=== PATIENT | female | born 1940 | race Caucasian/White ===

== ENCOUNTER 2017-01-07 16:19 | Emergency (ER) | payer MEDICARE ==
[2017-01-07 16:56] VITALS: O2SAT 97
[2017-01-07] MEDS ORDERED: PROVENTIL 2.5 MG/3 ML NEB IH ONE ×2 (16:56→17:07)
--- NOTE | 2017-01-07 17:02 | ERPHSYRPT ---
- History of Present Illness Time Seen by Provider: 01/07/17 16:21 Source: patient Patient Subjective Stated Complaint: increased sob Triage Nursing Assessment: states she went to have 2 biopsies yesterday on a rectal mass in [place]. increased sob since last night. pt states she is anemic. skin warm and dry. home o2. states is passing octavio red blood with clots. denies cough or nasal drainage. 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 She has been off blood thinners for 6 months due to bleeding. She went to [facility] yesterday and had a rectal biopsy. 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 She had prior complete hysterectomy. No chest pain. No fever or chills. No abd pain. Allergies/Adverse Reactions: iron Adverse Reaction (Verified 01/07/17 16:28) Home Medications: Albuterol/Ipratropium 3ml Neb* [DUONEB 0.5-3 MG/3 ml Neb] 1 neb IH Q4-6HPRN PRN 08/18/12 [History] Atorvastatin Calcium [Lipitor] 20 mg PO HS 02/28/13 [History] Furosemide 40 mg [Lasix 40 MG] 40 mg PO DAILY 02/28/13 [History] Carvedilol 6.25 mg [Coreg 6.25 MG] 6.25 mg PO BID 01/07/17 [History] Fluticasone/Vilanterol [Breo Ellipta 100-25 Mcg INH] 1 each IH DAILY 01/07/17 [ History] Ipratropium/Albuterol Sulfate [Combivent Inhaler] 14.7 gm IH DAILY 01/07/17 [ History] Omeprazole 40 mg PO DAILY 01/07/17 [History] Potassium Chloride 10 Meq Tab* [Klor Con 10 MEQ] 10 meq PO HS 01/07/17 [ History] Hx Tetanus, Diphtheria Vaccination/Date Given: Yes Hx Influenza Vaccination/Date Given: Yes Hx Pneumococcal Vaccination/Date Given: Yes (2015) Immunizations Up to Date: Yes - Review of Systems Constitutional: Fatigue, Malaise, Weakness, No Fever, No Chills Eyes: No Symptoms Ears, Nose, & Throat: No Symptoms Respiratory: Dyspnea, No Cough Cardiac: No Chest Pain Abdominal/Gastrointestinal: No Abdominal Pain, No Nausea, No Vomiting Musculoskeletal: No Back Pain Skin: No Rash All Other Systems: Reviewed and Negative - Past Medical History Pertinent Past Medical History: Yes Neurological History: No Pertinent History ENT History: Cataracts Cardiac History: Arrhythmia, Hypertension, Myocardial Infarction (IA), Other Respiratory History: Emphysema Endocrine Medical History: No Pertinent History Musculoskeletal History: No Pertinent History GI Medical History: No Pertinent History History: No Pertinent History Psycho-Social History: No Pertinent History Female Reproductive Disorders: Endometriosis Other Medical History: APICAL THROMBUS, 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 PACEMAKER/DEFIBRILLATOR VIA DR NAVARRO. 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 IN JUN 2012 WAS ON THE VENTILATOR FOR 11 DAYS. - Past Surgical History Past Surgical History: Yes Neuro Surgical History: No Pertinent History Cardiac: No Pertinent History, Internal Defibrillator, Pacemaker Respiratory: No Pertinent History Gastrointestinal: No Pertinent History Genitourinary: No Pertinent History Musculoskeletal: No Pertinent History Female Surgical History: Hysterectomy Other Surgical History: cataract surgery - Social History Smoking Status: Former smoker How long have you smoked: 52 years Exposure to second hand smoke: No Drug Use: none Patient Lives Alone: No - Female History Hx Now: No - Nursing Vital Signs Nursing Vital Signs: Initial Vital Signs Temperature 97.6 F Temperature Source Oral Pulse Rate 70 Respiratory Rate 16 Blood Pressure [Right Arm] 136/76 Pain Intensity 0 - Physical Exam General Appearance: other (awake and alert) Eye Exam: PERRL/EOMI Ears, Nose, Throat Exam: moist mucous membranes Neck Exam: supple Respiratory Exam: diminished breath sounds Cardiovascular Exam: regular rate/rhythm Gastrointestinal/Abdomen Exam: soft, No tenderness, No distention Back Exam: normal inspection Extremity Exam: normal inspection, No calf tenderness, No pedal edema Neurologic Exam: alert, oriented x 3, cooperative, sensation nml, No motor deficits Skin Exam: warm, dry, No rash SpO2 Interpretation: normal SpO2: 97 Oxygen Delivery: Nasal Cannula Comments: 01/07/17 17:01 rectum has no active bleeding. There is clot in vagina and this appears to be vaginal bleeding. She reports biopsy yesterday. Work up is pending. - Course Nursing assessment & vital signs reviewed: Yes EKG Interpreted by Me: RATE (70 pacemaker rhythm) - Radiology Exams cxr X-ray Interpretation: Reviewed by me (mild congestion, no consolidation, AICD) Ordered Tests: Active Orders 24 hr Category Date Time Status EKG-ER Only STAT Care 01/07/17 16:55 Active Harrell [Catheter-[place] Harrell] STAT Care 01/07/17 16:57 Active IV Insertion STAT Care 01/07/17 16:55 Active Oxygen-ED Only NASAL CANNULA 2 lpm Care 01/07/17 16:56 Active CHEST 1 VIEW (PORTABLE) Stat Exams 01/07/17 16:55 Taken CBC W DIFF Stat Lab 01/07/17 16:35 Completed CMP Stat Lab 01/07/17 16:35 Completed PROTIME WITH INR Stat Lab 01/07/17 16:35 Completed PTT Stat Lab 01/07/17 16:35 Completed UA W/RFX UR CULTURE Stat Lab 01/07/17 16:35 Completed Respiratory Nebulizer STAT RT 01/07/17 16:56 Active Medication Summary Discontinued Medications Generic Name Dose Route Start Last Admin Trade Name Freq PRN Reason Stop Dose Admin Albuterol Sulfate 2.5 mg 01/07/17 16:56 01/07/17 17:10 Proventil 2.5 Mg/3 Ml Neb IH 01/07/17 16:57 2.5 mg STAT ONE Administration Albuterol Sulfate Confirm 01/07/17 17:07 Proventil 2.5 Mg/3 Ml Neb Administered 01/07/17 17:08 Dose 2.5 mg IH .STK-MED ONE Lab/Rad Data: Laboratory Result Diagrams 01/07/17 16:35 01/07/17 16:35 Laboratory Results 01/07/17 01/07/17 01/07/17 Range/Units 16:35 16:35 16:35 WBC 3.4 L (4.0-10.5) K/mm3 RBC 3.45 L (4.1-5.4) M/mm3 Hgb 9.5 L (12.0-16.0) gm/dl Hct 32.5 L (35-47) % MCV 94.2 (78-100) fl MCH 27.5 (26-32) pg MCHC 29.2 L (32-36) g/dl RDW 15.8 H (11.5-14.0) % Plt Count 195 (150-450) K/mm3 MPV 10.5 H (6-9.5) fl Gran % 73.4 H (36.0-66.0) % Lymphocytes % 18.1 L (24.0-44.0) % Monocytes % 5.8 (0.0-12.0) % Eosinophils % 1.8 (0.00-5.0) % Basophils % 0.9 (0.0-0.4) % Basophils # 0.03 (0-0.4) INR 0.99 (0.8-3.0) APTT 29.7 (25.3-37.0) SECONDS Sodium 139 (136-145) mEq/L Potassium 3.6 (3.5-5.1) mEq/L Chloride 100 (98-107) mEq/L Carbon Dioxide 35.0 H (21-32) mEq/L Anion Gap 7.6 (5-15) MEQ/L BUN 11 (9-20) mg/dL Creatinine 0.78 (0.55-1.30) mg/dl Estimated GFR > 60 ML/MIN Glucose 122 H (70-110) MG/DL Calcium 9.0 (8.5-10.1) mg/dL Total Bilirubin 0.20 (0.2-1.0) mg/dL AST 19 (15-37) U/L ALT 28 (12-78) U/L Alkaline Phosphatase 94 (46-116) U/L Serum Total Protein 7.6 (6.4-8.2) gm/dL Albumin 3.3 L (3.4-5.0) g/dL Ur Collection Type Urine Color (YELLOW) Urine Appearance (CLEAR) Urine pH (5-6) Ur Specific [place] (1.005-1.025) Urine Protein (Negative) Urine Glucose (UA) (NEGATIVE) mg/dL Urine Ketones (NEGATIVE) Urine Nitrite (NEGATIVE) Urine Bilirubin (NEGATIVE) Urine Urobilinogen (0-1) mg/dL Urine WBC (Auto) (NEGATIVE) Urine RBC (Auto) (0-5) Misael/ul Specimen Received 01/07/17 Range/Units 16:35 WBC (4.0-10.5) K/mm3 RBC (4.1-5.4) M/mm3 Hgb (12.0-16.0) gm/dl Hct (35-47) % MCV (78-100) fl MCH (26-32) pg MCHC (32-36) g/dl RDW (11.5-14.0) % Plt Count (150-450) K/mm3 MPV (6-9.5) fl Gran % (36.0-66.0) % Lymphocytes % (24.0-44.0) % Monocytes % (0.0-12.0) % Eosinophils % (0.00-5.0) % Basophils % (0.0-0.4) % Basophils # (0-0.4) INR (0.8-3.0) APTT (25.3-37.0) SECONDS Sodium (136-145) mEq/L Potassium (3.5-5.1) mEq/L Chloride (98-107) mEq/L Carbon Dioxide (21-32) mEq/L Anion Gap (5-15) MEQ/L BUN (9-20) mg/dL Creatinine (0.55-1.30) mg/dl Estimated GFR ML/MIN Glucose (70-110) MG/DL Calcium (8.5-10.1) mg/dL Total Bilirubin (0.2-1.0) mg/dL AST (15-37) U/L ALT (12-78) U/L Alkaline Phosphatase (46-116) U/L Serum Total Protein (6.4-8.2) gm/dL Albumin (3.4-5.0) g/dL Ur Collection Type CATH Urine Color YELLOW (YELLOW) Urine Appearance CLEAR (CLEAR) Urine pH 5.0 (5-6) Ur Specific [place] 1.015 (1.005-1.025) Urine Protein NEGATIVE (Negative) Urine Glucose (UA) NEGATIVE (NEGATIVE) mg/dL Urine Ketones NEGATIVE (NEGATIVE) Urine Nitrite NEGATIVE (NEGATIVE) Urine Bilirubin NEGATIVE (NEGATIVE) Urine Urobilinogen 0.2 (0-1) mg/dL Urine WBC (Auto) NEGATIVE (NEGATIVE) Urine RBC (Auto) NEGATIVE (0-5) Misael/ul Specimen Received 01/07/17 1635 - Progress Progress Note: 01/07/17 18:30 She felt better and wants to go home. Vitals stable here. No sign of infection. She has no chest pain. Hg a little low but stable. Advised she take extra water pill but she does not want to. Advised she see Dr Ruff tomorrow if needed and next week for sure. She plans to care for grandchildren tomorrow. Counseled pt/family regarding: lab results, diagnosis, need for follow-up, rad results - Departure Time of Disposition: 18:31 Departure Disposition: Home Clinical Impression: Vaginal bleeding, Anemia, COPD (chronic obstructive pulmonary disease) Condition: Stable Critical Care Time: No Referrals: OTF RUFF MD [Primary Care Provider] - Instructions: Chronic Obstructive Pulmonary Disease, Vaginal Bleeding Additional Instructions: Rest at home. Call to see Dr Ruff tomorrow if any problems or next week if stable. Take an extra water pill tonite. Return for problems or concerns.
[2017-01-07 17:05] LABS: BASOPHIL % 0.9 % (0.0-0.4); Eosinophil % 1.8 % (0.00-5.0); Granulocytes % 73.4 % (36.0-66.0); Lymphocytes % 18.1 % (24.0-44.0); Mean Cell Volume 94.2 fl (78-100); Mean Corpuscular Hemoglobin 27.5 pg (26-32); Mean Platelet Volume 10.5 fl (6-9.5); Monocytes % 5.8 % (0.0-12.0); Platelet Count 195 K/mm3 (150-450); Red Blood Count 3.45 M/mm3 (4.1-5.4); Red Cell Distribution Width 15.8 % (11.5-14.0); White Blood Count 3.4 K/mm3 (4.0-10.5)
[2017-01-07 17:06] LABS: ADD URINE CULTURE? NO (NO); COMPLETE URINE MICROSCOPIC? NO; Collection Type CATH
[2017-01-07 17:23] LABS: INR 0.99 (0.8-3.0); PROTIME 11.1 SECONDS (9.95-12.35)
[2017-01-07 17:26] LABS: PTT 29.7 SECONDS (25.3-37.0)
[2017-01-07 17:33] LABS: ALBUMIN 3.3 g/dL (3.4-5.0); ALKALINE PHOSPHATASE 94 U/L (46-116); ANION GAP 7.6 MEQ/L (5-15); BLOOD UREA NITROGEN 11 mg/dL (9-20); CHLORIDE 100 mEq/L (98-107); Glucose 122 MG/DL (70-110); Potassium 3.6 mEq/L (3.5-5.1); SGOT/AST 19 U/L (15-37); SGPT/ALT 28 U/L (12-78); SODIUM 139 mEq/L (136-145); Total Protein 7.6 gm/dL (6.4-8.2)
[2017-01-07 18:42] VITALS: BP 122/65; PULSE 88
--- NOTE | 2017-01-08 09:01 | XRAY ---
Indication: Short of breath. COPD. Comparison: March 13, 2016. Portable chest less inflated today again with chronic lung markings. No focal infiltrate, consolidation, or large effusion. Heart is not enlarged for AP portable technique. Stable left-sided AICD. Bony thorax intact again with osteopenia, degenerative changes, and calcified left axillary nodes. Impression: Nonacute chest with chronic features.
== END 2017-01-07 18:43 | disposition home or self-care (01) ==
LOC: ED 16:19
DX: N93.9 Abnormal uterine and vaginal bleeding, unspecified (principal); D64.9 Anemia, unspecified; J44.9 Chronic obstructive pulmonary disease, unspecified
CPT/HCPCS: 36000; 36415; 51702; 71010; 80053; 81002; 85025; 85610; 85730; 93005; 94640; 99283; A9270-GY

== ENCOUNTER 2018-08-02 11:16 | Inpatient (IN) | payer MEDICARE ==
--- NOTE | 2018-08-02 11:52 | ERPHSYRPT ---
- History of Present Illness Time Seen by Provider: 08/02/18 11:20 Patient Subjective Stated Complaint: EMS states "Her son came to wish her a happy birthday and found her unresponsive in her chair and called us. She has CHF, COPD, emphysema, her initial O2 sat was 75, she did not have her oxygen on in her chair. we put her on CPAP, gave her a duo neb tx, continuous neb tx, and 125 mg solumedrol en route. pt started to become more responsive." Triage Nursing Assessment: Pt arrived [facility] on CPAP, pt responds to voice, will answer a few questions, tachpneic, lung sounds has expiratory wheezes in all lung bowman, inspiratory wheezes left lower. pt son states sometime between 0400 and 1000 am her status changed. Physician History: 78 y/o white female presents via EMS. pt found by son at approx 10am unresponsive sitting up in chair without her home oxygen on via [place]. pt last seen normal at 0400 this am. pt was tachypneic with shallow breathing on his arrival. pt has h/o copd, chf, and emphysema. EMS arrival oxygen sat 75%. on cpap pts neuro status improved marginally. will shake head and nod to answer questions. Timing/Duration: today Severity: moderate Character of Deficits: unable to speak, other (minimally responsive) Baseline/Normal Cognition: alert oriented x 3 Current Cognition: poor alertness Associated Symptoms: other (altered mental status), No loss of consciousness, No nausea, No vomiting, No weakness, No insomnia, No slurred speech Allergies/Adverse Reactions: iron Adverse Reaction (Verified 01/07/17 16:28) Home Medications: Albuterol/Ipratropium 3ml Neb* [DUONEB 0.5-3 MG/3 ml Neb] 1 neb IH Q4-6HPRN PRN 08/18/12 [History] Atorvastatin Calcium [Lipitor] 20 mg PO HS 02/28/13 [History] Furosemide 40 mg [Lasix 40 MG] 40 mg PO BID 02/28/13 [History] Carvedilol 6.25 mg [Coreg 6.25 MG] 12.5 mg PO BID 01/07/17 [History] Fluticasone/Vilanterol [Breo Ellipta 100-25 Mcg INH] 1 each IH DAILY 01/07/17 [ History] Ipratropium/Albuterol Sulfate [Combivent Inhaler] 14.7 gm IH DAILY 01/07/17 [ History] Omeprazole 40 mg PO DAILY 01/07/17 [History] Potassium Chloride 10 Meq Tab* [Klor Con 10 MEQ] 10 meq PO BID 01/07/17 [ History] Hx Tetanus, Diphtheria Vaccination/Date Given: No Hx Influenza Vaccination/Date Given: Yes Hx Pneumococcal Vaccination/Date Given: Yes Immunizations Up to Date: Yes - Review of Systems Constitutional: No Symptoms Eyes: No Symptoms Ears, Nose, & Throat: No Symptoms Respiratory: Dyspnea, Wheezing, No Stridor Cardiac: No Chest Pain, No Palpitations, No Syncope Abdominal/Gastrointestinal: No Symptoms, No Abdominal Pain, No Nausea, No Vomiting, No Diarrhea Genitourinary Symptoms: No Symptoms, No Dysuria, No Frequency, No Hematuria Musculoskeletal: No Symptoms Skin: No Symptoms Neurological: Other (altered mental status) Psychological: No Symptoms Endocrine: No Symptoms Hematologic/Lymphatic: No Symptoms Immunological/Allergic: No Symptoms All Other Systems: Reviewed and Negative - Past Medical History Pertinent Past Medical History: Yes Neurological History: No Pertinent History ENT History: Cataracts Cardiac History: Arrhythmia, Hypertension, Myocardial Infarction (DE), Other Respiratory History: Emphysema Endocrine Medical History: No Pertinent History Musculoskeletal History: No Pertinent History GI Medical History: No Pertinent History History: No Pertinent History Psycho-Social History: No Pertinent History Female Reproductive Disorders: Endometriosis Other Medical History: APICAL THROMBUS, 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 PACEMAKER/DEFIBRILLATOR VIA DR NAVARRO. 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 IN JUN 2012 WAS ON THE VENTILATOR FOR 11 DAYS. - Past Surgical History Past Surgical History: Yes Neuro Surgical History: No Pertinent History Cardiac: No Pertinent History, Internal Defibrillator, Pacemaker Respiratory: No Pertinent History Gastrointestinal: No Pertinent History Genitourinary: No Pertinent History Musculoskeletal: No Pertinent History Female Surgical History: Hysterectomy Other Surgical History: cataract surgery - Social History Smoking Status: Current every day smoker How long have you smoked: years Exposure to second hand smoke: Yes Drug Use: none Patient Lives Alone: No - Nursing Vital Signs Nursing Vital Signs: Initial Vital Signs Pulse Rate 85 08/02/18 11:18 Respiratory Rate 34 H 08/02/18 11:18 Blood Pressure 128/59 08/02/18 11:18 O2 Sat by Pulse Oximetry 100 08/02/18 11:18 Pain Scale Pain Intensity 0 - [place] Coma Scale Best Eye Response (Timur): (3) open to voice Best Verbal Response (Timur): (1) no verbal response Best Motor Response ([place]): (6) obeys commands [place] Total: 10 - Physical Exam General Appearance: lethargy Eye Exam: bilateral eye: normal inspection, PERRL, EOMI Ears, Nose, Throat Exam: normal ENT inspection, moist mucous membranes Neck Exam: normal inspection, non-tender, supple, full range of motion Respiratory: diminished breath sounds, wheezing, No accessory muscle use, No crackles/rales, No rhonchi, No stridor Cardiovascular: irregular, other (ventricular pacemaker) Gastrointestinal: soft, normal bowel sounds, No tenderness, No guarding Pelvic Exam: not done Rectal Exam: not done Back Exam: normal inspection, normal range of motion, No CVA tenderness, No vertebral tenderness Extremity Exam: normal inspection, normal range of motion, pelvis stable Mental Status: lethargy aprn Exam: normal hearing, PERRL, tongue midline, No facial asymmetry, No hearing deficit (R) Skin Exam: normal color, warm, dry SpO2 Interpretation: normal SpO2: 100 Oxygen Delivery: BiPap/CPAP - Course Nursing assessment & vital signs reviewed: Yes EKG Interpreted by Me: RATE (80), Other (ventricular paced rhythm) Ordered Tests: Active Orders 24 hr Category Date Time Status Sheet Metal Supervisor STAT Care 08/02/18 11:31 Active Cath for Specimen-Straight STAT Care 08/02/18 11:31 Active Catheter-Osceola Hrarell STAT Care 08/02/18 11:29 Active EKG-ER Only STAT Care 08/02/18 11:29 Active IV Insertion STAT Care 08/02/18 11:29 Active Pulse Oximetry (ED) STAT Care 08/02/18 11:29 Active CHEST 1 VIEW (PORTABLE) Stat Exams 08/02/18 11:30 Completed HEAD WITHOUT CONTRAST [CT] Stat Exams 08/02/18 11:33 Completed ARTERIAL BLOOD GASES Urgent Lab 08/02/18 11:26 Completed BLOOD CULTURE Stat Lab 08/02/18 12:50 Received BNP [NT PRO BNP] Stat Lab 08/02/18 11:51 Completed CBC W DIFF Stat Lab 08/02/18 11:51 Completed CMP Stat Lab 08/02/18 11:51 Completed CULTURE,URINE Stat Lab 08/02/18 11:51 Received Lactic Acid Stat Lab 08/02/18 11:26 Completed Manual Differential NC Stat Lab 08/02/18 11:51 Completed PROTIME WITH INR Stat Lab 08/02/18 11:51 Completed TROPONIN Q3H Lab 08/02/18 11:51 Completed TROPONIN Q3H Lab 08/02/18 14:45 Ordered TROPONIN Q3H Lab 08/02/18 17:45 Ordered TROPONIN Q3H Lab 08/02/18 20:45 Ordered TROPONIN Q3H Lab 08/02/18 23:45 Ordered UA W/RFX UR CULTURE Stat Lab 08/02/18 11:51 Completed BiPap/CPAP STAT RT 08/02/18 11:32 Active Transfer Order Routine Transfer 08/02/18 Ordered Medication Summary Discontinued Medications Generic Name Dose Route Start Last Admin Trade Name Freq PRN Reason Stop Dose Admin Acetaminophen 650 mg 08/02/18 12:13 08/02/18 12:18 Feverall 650 Mg AK 08/02/18 12:14 650 mg STAT ONE Administration Acetaminophen Confirm 08/02/18 12:17 Feverall 650 Mg Administered 08/02/18 12:18 Dose 650 mg .ROUTE .STAnalytics Quotient-MED ONE Lab/Rad Data: Laboratory Result Diagrams 08/02/18 11:51 08/02/18 11:51 Laboratory Results 08/02/18 08/02/18 08/02/18 Range/Units 11:51 11:51 11:51 WBC (4.0-10.5) K/mm3 RBC (4.1-5.4) M/mm3 Hgb (12.0-16.0) gm/dl Hct (35-47) % MCV (78-100) fl MCH (26-32) pg MCHC (32-36) g/dl RDW (11.5-14.0) % Plt Count (150-450) K/mm3 MPV (6-9.5) fl Segmented Neutrophils (36.0-66.0) % Band Neutrophils (0.0-2.0) % Lymphocytes (Manual) (24-44) % Monocytes (Manual) (0.0-12.0) % Hypochromia Platelet Estimate (NORMAL) RBC Morphology Anisocytosis PT (9.95-12.35) SECONDS INR (0.8-3.0) Puncture Site pCO2 (35-45) mmHg pO2 (75-100) mmHg Base Excess (-2.0-2.0) O2 Saturation (94-100) g/dF ABG pH (7.35-7.45) ABG HCO3 (22-28) ABG O2 Sat (Measured) (95-100) % Riccardo Test A-a Gradient a/A Ratio Hemoglobin Carboxyhemoglobin (0.0-6.9) % THgb Methemoglobin (1.4-1.5) % Potassium (3.5-5.1) Temperature C POC O2 Flow Rate % Inspiratory BiPAP Expiratory BiPAP Sodium (137-145) mmol/L Chloride (98-107) mmol/L Carbon Dioxide (22-30) mmol/L Anion Gap (5-15) MEQ/L BUN (7-17) mg/dL Creatinine (0.52-1.04) mg/dL Estimated GFR ML/MIN Glucose (74-106) mg/dL Lactic Acid (0.4-2.0) Calcium (8.4-10.2) mg/dL Total Bilirubin (0.2-1.3) mg/dL AST (14-36) U/L ALT (0-35) U/L Alkaline Phosphatase (38-126) U/L Troponin I 0.017 (0.000-0.034) ng/mL NT-Pro-B Natriuret Pep 2360 H (0-1800) pg/mL Serum Total Protein (6.3-8.2) g/dL Albumin (3.5-5.0) g/dL Urine Color HARLEY (YELLOW) Urine Appearance CLOUDY (CLEAR) Urine pH 5.0 (5-6) Ur Specific Jasper 1.020 (1.005-1.025) Urine Protein 100 (Negative) Urine Ketones NEGATIVE (NEGATIVE) Urine Blood NEGATIVE (0-5) Misael/ul Urine Nitrite NEGATIVE (NEGATIVE) Urine Bilirubin NEGATIVE (NEGATIVE) Urine Urobilinogen 4 (0-1) mg/dL Ur Leukocyte Esterase NEGATIVE (NEGATIVE) Urine WBC (Auto) 6-10 (0-5) /HPF Urine RBC (Auto) 0-2 (0-2) /HPF U Hyaline Cast (Auto) 26-50 (0-2) /LPF U Epithel Cells (Auto) RARE (FEW) /HPF Urine Bacteria (Auto) MODERATE (NEGATIVE) /HPF Urine Mucus (Auto) MANY (NEGATIVE) /HPF Urine Culture Reflexed YES (NO) Urine Glucose NEGATIVE (NEGATIVE) mg/dL 08/02/18 08/02/18 08/02/18 Range/Units 11:51 11:51 11:51 WBC 3.0 L (4.0-10.5) K/mm3 RBC 2.54 L (4.1-5.4) M/mm3 Hgb 7.4 L (12.0-16.0) gm/dl Hct 24.9 L (35-47) % MCV 98.0 (78-100) fl MCH 29.1 (26-32) pg MCHC 29.7 L (32-36) g/dl RDW 16.4 H (11.5-14.0) % Plt Count 81 L (150-450) K/mm3 MPV 12.4 H (6-9.5) fl Segmented Neutrophils 42 (36.0-66.0) % Band Neutrophils 4 H (0.0-2.0) % Lymphocytes (Manual) 53 H (24-44) % Monocytes (Manual) 1 (0.0-12.0) % Hypochromia 2+ Platelet Estimate DECREASED (NORMAL) RBC Morphology ABNORMAL Anisocytosis 2+ PT 15.4 H (9.95-12.35) SECONDS INR 1.32 (0.8-3.0) Puncture Site pCO2 (35-45) mmHg pO2 (75-100) mmHg Base Excess (-2.0-2.0) O2 Saturation (94-100) g/dF ABG pH (7.35-7.45) ABG HCO3 (22-28) ABG O2 Sat (Measured) (95-100) % Riccardo Test A-a Gradient a/A Ratio Hemoglobin Carboxyhemoglobin (0.0-6.9) % THgb Methemoglobin (1.4-1.5) % Potassium 4.4 (3.5-5.1) Temperature C POC O2 Flow Rate % Inspiratory BiPAP Expiratory BiPAP Sodium 133 L (137-145) mmol/L Chloride 90 L (98-107) mmol/L Carbon Dioxide 33 H (22-30) mmol/L Anion Gap 13.8 (5-15) MEQ/L BUN 20 H (7-17) mg/dL Creatinine 1.01 (0.52-1.04) mg/dL Estimated GFR 56.6 ML/MIN Glucose 124 H (74-106) mg/dL Lactic Acid (0.4-2.0) Calcium 8.8 (8.4-10.2) mg/dL Total Bilirubin 1.20 (0.2-1.3) mg/dL AST 113 H (14-36) U/L ALT 53 H (0-35) U/L Alkaline Phosphatase 121 (38-126) U/L Troponin I (0.000-0.034) ng/mL NT-Pro-B Natriuret Pep (0-1800) pg/mL Serum Total Protein 6.7 (6.3-8.2) g/dL Albumin 3.6 (3.5-5.0) g/dL Urine Color (YELLOW) Urine Appearance (CLEAR) Urine pH (5-6) Ur Specific Jasper (1.005-1.025) Urine Protein (Negative) Urine Ketones (NEGATIVE) Urine Blood (0-5) Misael/ul Urine Nitrite (NEGATIVE) Urine Bilirubin (NEGATIVE) Urine Urobilinogen (0-1) mg/dL Ur Leukocyte Esterase (NEGATIVE) Urine WBC (Auto) (0-5) /HPF Urine RBC (Auto) (0-2) /HPF U Hyaline Cast (Auto) (0-2) /LPF U Epithel Cells (Auto) (FEW) /HPF Urine Bacteria (Auto) (NEGATIVE) /HPF Urine Mucus (Auto) (NEGATIVE) /HPF Urine Culture Reflexed (NO) Urine Glucose (NEGATIVE) mg/dL 18 08/02/18 Range/Units 11:26 11:26 WBC (4.0-10.5) K/mm3 RBC (4.1-5.4) M/mm3 Hgb (12.0-16.0) gm/dl Hct (35-47) % MCV (78-100) fl MCH (26-32) pg MCHC (32-36) g/dl RDW (11.5-14.0) % Plt Count (150-450) K/mm3 MPV (6-9.5) fl Segmented Neutrophils (36.0-66.0) % Band Neutrophils (0.0-2.0) % Lymphocytes (Manual) (24-44) % Monocytes (Manual) (0.0-12.0) % Hypochromia Platelet Estimate (NORMAL) RBC Morphology Anisocytosis PT (9.95-12.35) SECONDS INR (0.8-3.0) Puncture Site LEFT RADIAL pCO2 43 (35-45) mmHg pO2 415 H* (75-100) mmHg Base Excess 9.4 H (-2.0-2.0) O2 Saturation 96.1 (94-100) g/dF ABG pH 7.50 H (7.35-7.45) ABG HCO3 33.5 H* (22-28) ABG O2 Sat (Measured) 99.2 (95-100) % Riccardo Test YES A-a Gradient 244 a/A Ratio 0.63 Hemoglobin 8.1 Carboxyhemoglobin 1.8 (0.0-6.9) % THgb Methemoglobin 1.3 L (1.4-1.5) % Potassium 4.4 (3.5-5.1) Temperature 37.0 C POC O2 Flow Rate 100 % Inspiratory BiPAP 16 Expiratory BiPAP 8 Sodium (137-145) mmol/L Chloride (98-107) mmol/L Carbon Dioxide (22-30) mmol/L Anion Gap (5-15) MEQ/L BUN (7-17) mg/dL Creatinine (0.52-1.04) mg/dL Estimated GFR ML/MIN Glucose (74-106) mg/dL Lactic Acid 0.7 (0.4-2.0) Calcium (8.4-10.2) mg/dL Total Bilirubin (0.2-1.3) mg/dL AST (14-36) U/L ALT (0-35) U/L Alkaline Phosphatase (38-126) U/L Troponin I (0.000-0.034) ng/mL NT-Pro-B Natriuret Pep (0-1800) pg/mL Serum Total Protein (6.3-8.2) g/dL Albumin (3.5-5.0) g/dL Urine Color (YELLOW) Urine Appearance (CLEAR) Urine pH (5-6) Ur Specific Jasper (1.005-1.025) Urine Protein (Negative) Urine Ketones (NEGATIVE) Urine Blood (0-5) Misael/ul Urine Nitrite (NEGATIVE) Urine Bilirubin (NEGATIVE) Urine Urobilinogen (0-1) mg/dL Ur Leukocyte Esterase (NEGATIVE) Urine WBC (Auto) (0-5) /HPF Urine RBC (Auto) (0-2) /HPF U Hyaline Cast (Auto) (0-2) /LPF U Epithel Cells (Auto) (FEW) /HPF Urine Bacteria (Auto) (NEGATIVE) /HPF Urine Mucus (Auto) (NEGATIVE) /HPF Urine Culture Reflexed (NO) Urine Glucose (NEGATIVE) mg/dL - Progress Progress: improved, re-examined Progress Note: 08/02/18 13:57 pt spontaneously opens eyes. following basic commands. spoke with dr. manning who is covering for . i reviewed pt hx, condition, labs, ekg and xray results with him. he accepts pt for admission. he agrees with transfusion of prbc and 20mg iv. lasix between and after units transfused. will wait for iv antibx pending cultures. Discussed with : Mc Counseled pt/family regarding: lab results, diagnosis, rad results - Departure Time of Disposition: 14:02 Departure Disposition: In-patient Admission Clinical Impression: Altered mental status, Pancytopenia, CHF (congestive heart failure), Respiratory distress Condition: Fair Critical Care Time: Yes Critical Care Time(excluding separately billable procedures): 30-74 minutes Referrals: OTF SOLIZ MD [Primary Care Provider] - Instructions: Heart Failure
[2018-08-02 11:56] LABS: Hematocrit 24.9 % (35-47); Hemoglobin 7.4 gm/dl (12.0-16.0); Mean Corpuscular Hemoglobin 29.1 pg (26-32); Mean Corpuscular Hgb Concent. 29.7 g/dl (32-36); Mean Platelet Volume 12.4 fl (6-9.5); Platelet Count 81 K/mm3 (150-450); Red Blood Count 2.54 M/mm3 (4.1-5.4); Red Cell Distribution Width 16.4 % (11.5-14.0)
[2018-08-02 11:59] LABS: Appearance CLOUDY (CLEAR); Bilirubin NEGATIVE (NEGATIVE); Blood NEGATIVE Ery/ul (0-5); Glucose NEGATIVE (NEGATIVE); Ketones NEGATIVE (NEGATIVE); Leukocyte Esterase NEGATIVE (NEGATIVE); Nitrite NEGATIVE (NEGATIVE); Protein,Urine Dip 100 (Negative); Urobilinogen 4 mg/dL (0-1)
[2018-08-02 12:04] LABS: A-aADO2 244; ABG HEMOGLOBIN 8.1; ABG POTASSIUM 4.4 (3.5-5.1); ARTERIAL BLD GAS O2 SATURATION 99.2 % (95-100); ARTERIAL BLOOD GAS BASE EXCESS 9.4 (-2.0-2.0); ARTERIAL BLOOD GAS FIO2 100 %; ARTERIAL BLOOD GAS PCO2 43 mmHg (35-45); ARTERIAL BLOOD GAS PO2 415 mmHg (75-100); CARBOXYHEMOGLOBIN 1.8 % THgb (0.0-6.9); HCO3- 33.5 (22-28); HGB O2 SAT 96.1 g/dF (94-100); Methhemoglobin 1.3 % (1.4-1.5); paO2 pAO1 0.63
[2018-08-02 12:05] LABS: ABG SITE LEFT RADIAL; ALLEN TEST OK? YES
[2018-08-02 12:08] LABS: INR 1.32 (0.8-3.0)
[2018-08-02 12:11] LABS: ALBUMIN 3.6 g/dL (3.5-5.0); ANION GAP 13.8 MEQ/L (5-15); BILIRUBIN,TOTAL 1.2 mg/dL (0.2-1.3); Calcium 8.8 mg/dL (8.4-10.2); Creatinine 1 1.01 mg/dL (0.52-1.04); Potassium 4.4 mmol/L (3.5-5.1); Total Protein 6.7 g/dL (6.3-8.2)
[2018-08-02] MEDS ORDERED: FEVERALL 650 MG PR ONE (12:13)
[2018-08-02 12:17] LABS: ANISOCYTOSIS 2+; BAND 4 % (0.0-2.0); Hypochromia 2+; Lymphocytes 53 % (24-44); Monocyte 1 % (0.0-12.0); Neutrophils 42 % (36.0-66.0); Platelet Estimate DECREASED (NORMAL); Total Cells Counted 100
[2018-08-02] MEDS ORDERED: FEVERALL 650 MG ONE (12:17)
--- NOTE | 2018-08-02 12:22 | XRAY ---
Indication: Short of breath. Altered mental status. Comparison: January 07, 2017. Portable apical lordotic chest again demonstrates chronic lung markings without focal infiltrate, consolidation, or large effusion. Heart is not enlarged for AP portable technique again with left-sided AICD. Bony thorax intact again with osteopenia, degenerative changes, scoliosis, and left axilla calcified nodes. Impression: Stable nonacute chest with chronic features.
--- NOTE | 2018-08-02 13:59 | XRAY ---
Indication: Acute mental status change. Multiple contiguous axial images obtained through the head without contrast. Comparison: None Age-appropriate global atrophy, moderate periventricular degenerative micro-ischemia bilaterally, and remote left basal ganglia lacunar infarct. No acute intracranial hemorrhage, abnormal extra-axial fluid collection, or mass effect. Fourth ventricle is midline without hydrocephalus. Bony calvarium intact. Near complete opacification the right mastoid air cells presumed inflammatory. Remaining visualized paranasal sinuses and left mastoid air cells are clear. Impression: 1. Nonacute senile brain. MRI may yield further information if there remains further clinical concern. 2. Opacification of the right mastoid air cells presumed inflammatory. CT DI 68.15
[2018-08-02] MEDS ORDERED: FEVERALL 650 MG PR PRN (15:08)
[2018-08-02] MEDS ORDERED: Zofran 4 MG/2 ML VIAL IV PRN (15:08)
[2018-08-02 15:38] LABS: ABO TYPING A; Antibody Screen NEGATIVE (NEGATIVE); RH TYPING POSITIVE
[2018-08-02] MEDS: Sodium Chloride 0.9% 500 ML 500 ML IV SCH (16:24)
[2018-08-02] MEDS: ROCEPHIN 1 Gm-D5w 50 ml Bag** 1 G/50 ML IVPB IV SCH (16:31)
[2018-08-02] MEDS: Zithromax 500 MG/ 250 ML NaCl Premix 500 MG/250 ML IVPB IV SCH (17:14)
[2018-08-02] MEDS ORDERED: MEDICATION INTERVENTION MC SCH (17:30)
[2018-08-02 17:46] LABS: INFLUENZA A NEGATIVE (NEGATIVE); INFLUENZA B NEGATIVE (NEGATIVE); RESPIRATORY SYNCTIAL VIRUS NEGATIVE (Negative)
[2018-08-02] MEDS: Lasix 40 MG PO SCH (17:46)
[2018-08-02] MEDS: Lasix 20 MG/2 ML IV SCH ×2 (19:47→22:52)
[2018-08-02] MEDS: ZOCOR 20MG PO SCH (21:09)
[2018-08-02] MEDS: Klor Con 10 MEQ PO SCH (21:09)
[2018-08-02] MEDS ORDERED: NON-FORMULARY ITEM (Atorvastatin Calcium [Lipitor] 20 MG) PO SCH (22:00)
[2018-08-02] MEDS: COREG 12.5 MG PO SCH (22:51)
[2018-08-03 00:07] LABS: Hematocrit 31.9 % (35-47); Hemoglobin 9.9 gm/dl (12.0-16.0)
[2018-08-03] MEDS: Sodium Chloride 0.9% 500 ML 500 ML IV SCH ×2 (05:26→16:53)
[2018-08-03 05:59] LABS: Hematocrit 30.3 % (35-47); Hemoglobin 9.2 gm/dl (12.0-16.0); Mean Cell Volume 95.6 fl (78-100); Mean Corpuscular Hgb Concent. 30.4 g/dl (32-36); Mean Platelet Volume 12.6 fl (6-9.5); Platelet Count 75 K/mm3 (150-450); Red Blood Count 3.17 M/mm3 (4.1-5.4)
[2018-08-03 06:18] LABS: A-aADO2 162; ABG HEMOGLOBIN 9.9; ABG POTASSIUM 4.3 (3.5-5.1); ABG SITE RIGHT BRACHIAL; ARTERIAL BLD GAS O2 SATURATION 94.9 % (95-100); ARTERIAL BLOOD GAS FIO2 44 %; ARTERIAL BLOOD GAS PCO2 66 mmHg (35-45); ARTERIAL BLOOD GAS PO2 69 mmHg (75-100); ARTERIAL BLOOD GAS pH 7.36 (7.35-7.45); CARBOXYHEMOGLOBIN 2.3 % THgb (0.0-6.9); HCO3- 37.3 (22-28); HGB O2 SAT 92.1 g/dF (94-100); Methhemoglobin 0.8 % (1.4-1.5)
[2018-08-03 06:41] LABS: ALBUMIN 3.3 g/dL (3.5-5.0); ALKALINE PHOSPHATASE 106 U/L (38-126); ANION GAP 9.6 MEQ/L (5-15); BLOOD UREA NITROGEN 24 mg/dL (7-17); CHLORIDE 95 mmol/L (98-107); Calcium 8.1 mg/dL (8.4-10.2); Carbon Dioxide 36 mmol/L (22-30); Creatinine 1 0.73 mg/dL (0.52-1.04); Glucose 138 mg/dL (74-106); NT PRO BNP 2270 pg/mL (0-1800); Potassium 4.2 mmol/L (3.5-5.1); SGOT/AST 78 U/L (14-36); SGPT/ALT 52 U/L (0-35); SODIUM 137 mmol/L (137-145); Total Protein 6.3 g/dL (6.3-8.2)
[2018-08-03 06:45] LABS: White Blood Count 1.8 K/mm3 (4.0-10.5)
[2018-08-03] MEDS: Advair Hfa 115/21 Common canister IH SCH ×2 (06:46→20:00)
[2018-08-03] MEDS: PROVENTIL 2.5 MG/3 ML NEB IH SCH ×4 (06:46→20:00)
[2018-08-03 07:12] LABS: BAND 1 % (0.0-2.0); Lymphocytes 33 % (24-44); Monocyte 3 % (0.0-12.0); Neutrophils 63 % (36.0-66.0); Total Cells Counted 100
[2018-08-03 07:13] LABS: ANISOCYTOSIS 2+; Hypochromia 1+; Platelet Estimate DECREASED (NORMAL); Poikilocytosis 2+
--- NOTE | 2018-08-03 07:50 | HP ---
CHIEF COMPLAINT: Decreased level of consciousness. HISTORY OF PRESENT ILLNESS: The patient is a 78 year-old white female living at home with her son. She reportedly was doing okay when the son left this morning but returned to find her kind of slumped over in a chair and unresponsive. The patient only wears oxygen but had her oxygen off on the floor. The patient currently will open her eyes to tactile and verbal stimulation but is otherwise somewhat improved from initial evaluation in the emergency room. The patient is currently laying in an ICU bed with CPAP on and will open her eyes to stimuli as indicated previously. PAST MEDICAL/SURGICAL HISTORY: Significant for chronic obstructive pulmonary disease, hyperlipidemia, congestive heart failure. She has a pacemaker in place and has a paced rhythm. MEDICATIONS: Combivent inhaler, omeprazole 40 mg daily, potassium 10 mEq a day. ALLERGIES: IRON. PHYSICAL EXAMINATION: The patient was noted to have a fever initially in the emergency room. Her pulse was 85, respiratory rate 34, blood pressure 120/59. O2 saturation 100% on supplemental oxygen. HEENT: Normocephalic, atraumatic. Again, she is wearing a CPAP mask. Oropharynx appears to be somewhat dry. NECK: Supple without lymphadenopathy, thyromegaly or JVD. CHEST: Essentially clear presently. HEART: Regular rate and rhythm, paced as indicated previously. No significant murmurs, rubs or gallops. ABDOMEN: Soft, nontender, nondistended. No palpable masses. EXTREMITIES: Without significant cyanosis, clubbing or edema. NEUROLOGIC: She shows no focal deficits. LAB DATA AND TESTS: X-rays: The CT scan of the head showed a nonacute senile brain, opacification of the right mastoid sinus air cells presumed to be inflammatory. Chest x-ray stable nonacute with chronic features. Blood work revealed a pancytopenia with a white count of 3,000, hemoglobin 7.4, PLT count of 81,000. Urine showed 6 to 10 white blood cells on high power field but nitrite was negative. It was however cloudy and somewhat concentrated in appearance. Lactic acid was 0.7. She had a pCO2 of 43 on her blood gas performed, pH 7.50. International normalized ratio was 1.32. Metabolic panel showed a sugar of 124, BUN 20, creatinine 1.01. Electrolytes were essentially normal. Liver enzymes were slightly elevated with AST of 113 and ALT of 53. ProBNP slightly elevated at 2,360. Troponin was 0.017. ASSESSMENT: A patient with decreased level of consciousness with febrile episode likely upper respiratory tract infection with progressive lethargy and inability to take fluids. She appears to be somewhat intervascular depleted. She is improving so far with oxygen, CPAP and we will give her fluids of 50 cc/hour. We will also give her 2 units of packed red blood cells because of her anemia of 7.4 but this is likely due to a myelodysplastic syndrome. We will swab for respiratory syncytial virus and fluids at sinus area at this time. Blood cultures have been obtained as well as urine culture. We will give her Lovenox subcu for deep venous thrombosis prophylaxis.
--- NOTE | 2018-08-03 08:53 | PCM.HP ---
History of Present Illness - Chief Complaint Chief Complaint: Pancytopenia; CHF History of Present Illness: is a 78 year old female with advanced copd with chronic hypoxemic respiratory failure and a remote history of rectal cancer. she is on chronic oxygen at 6L at home and follows with Dr Vaughn, apparently her son found her slumped over and unresponsive with her oxygen off yesterday, she has improved since arrival, was anemic and has received 2 units of packed red cells , she is alert and oriented today and taking po. She tells me she has felt weak and dizzy for the preceding several days, she received chemo and radiation in the past. She was seeing a Dr Woo in [place] for oncology but states she hasn't been seen in the last year and states there was no followup directed etc , she claims she is allergic to iron so had to take high iron foods during her chemo treatment. - Review of Systems Constitutional: No Fever, No Chills Respiratory: No Cough, No Short Of Breath Cardiac: No Chest Pain, No Edema, No Syncope Abdominal/Gastrointestinal: No Abdominal Pain, No Nausea, No Vomiting, No Diarrhea Skin: No Rash All Other Systems: Reviewed and Negative Medications & Allergies Home Medications: Home Medication List Atorvastatin Calcium [Lipitor] 20 mg PO HS 02/28/13 [History Confirmed 08/02/18] Furosemide 40 mg [Lasix 40 MG] 40 mg PO BID 02/28/13 [History Confirmed ] Carvedilol 6.25 mg [Coreg 6.25 MG] 12.5 mg PO BID 01/07/17 [History Confirmed 08/02/18] Fluticasone/Vilanterol [Breo Ellipta 100-25 Mcg INH] 1 each IH DAILY 01/07/17 [ History Confirmed 08/02/18] Omeprazole 40 mg PO DAILY 01/07/17 [History Confirmed 08/02/18] Potassium Chloride 10 Meq Tab* [Klor Con 10 MEQ] 10 meq PO BID 01/07/17 [ History Confirmed 08/02/18] Halobetasol Propionate 1 mg EXT QAM 08/02/18 [History Confirmed 08/02/18] Rivaroxaban [Xarelto] 1 tab PO DAILY 08/02/18 [History Confirmed 12/18/18] Allergies/Adverse Reactions: Allergies Allergy/AdvReac Type Severity Reaction Status Date / Time iron AdvReac Verified 01/07/17 16:28 - Past Medical History Past Medical History: Yes Neurological History: No Pertinent History ENT History: Cataracts Cardiac History: Arrhythmia, Hypertension, Myocardial Infarction (PR), Other Respiratory History: Emphysema Endocrine Medical History: No Pertinent History Musculoskelatal History: No Pertinent History GI Medical History: No Pertinent History History: No Pertinent History Pyscho-Social History: No Pertinent History Reproductive Disorders: Endometriosis Comment: APICAL THROMBUS, 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 PACEMAKER/DEFIBRILLATOR VIA DR ECHEVERRIA. 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 DR VAUGHN IS [employer]OR[employer]. IN JUN 2012 WAS ON THE VENTILATOR FOR 11 DAYS. - Female History Are you now?: (N/A) - Past Surgical History Past Surgical History: Yes Neuro Surgical History: No Pertinent History Cardiac History: No Pertinent History, Internal Defibrillator, Pacemaker Respiratory Surgery: No Pertinent History GI Surgical History: No Pertinent History Genitourinary Surgical Hx: No Pertinent History Musculskeletal Surgical Hx: No Pertinent History Female Surgical History: Hysterectomy Other Surgical History: cataract surgery - Social History Smoking Status: Unknown if ever smoked How long have you smoked: years Exposure to second hand smoke: (unknown) Alcohol: None Drug Use: none - Physical Exam Vital Signs: Vital Signs - 24 hr Temp Pulse Resp BP Pulse Ox 08/03/18 07:43 97.7 F 71 21 122/56 95 08/03/18 06:50 70 22 94 L 08/03/18 06:00 97.3 F 74 19 131/65 96 08/03/18 04:00 66 08/03/18 02:00 97.0 F 69 22 126/57 98 08/02/18 23:59 69 08/02/18 22:56 97.5 F 69 120/53 08/02/18 21:15 97.7 F 64 126/65 08/02/18 20:50 96 08/02/18 20:35 97.7 F 63 123/47 08/02/18 20:10 97.7 F 62 115/55 08/02/18 20:00 97.7 F 68 23 115/55 98 08/02/18 19:41 97.7 F 60 118/47 08/02/18 17:10 63 21 98 08/02/18 16:38 99.5 F 64 25 H 126/57 99 08/02/18 16:00 99.1 F 65 24 112/54 99 08/02/18 15:08 97 08/02/18 14:52 100.2 F 66 21 109/52 96 08/02/18 14:12 100 08/02/18 14:00 100.2 F 67 24 114/52 99 08/02/18 13:01 101.7 F 71 26 H 108/51 97 08/02/18 11:43 100 08/02/18 11:18 85 34 H 128/59 100 Oxygen-Last 24 hours O2 Percentage 6 Liters = 44% O2 Percentage 6 Liters = 44% O2 Percentage 40% O2 Percentage 40% O2 Percentage 40% O2 Percentage 100% O2 Percentage 100% General Appearance: no apparent distress, alert Neurologic Exam: alert, oriented x 3, cooperative, normal mood/affect, nml cerebellar function, sensation nml, No motor deficits Eye Exam: PERRL/EOMI, eyes nml inspection Respiratory Exam: diminished breath sounds, prolonged expirations, No respiratory distress Cardiovascular Exam: regular rate/rhythm, normal heart sounds, normal peripheral pulses Gastrointestinal/Abdomen Exam: soft, normal bowel sounds, No tenderness, No mass Extremity Exam: normal inspection, normal range of motion, pelvis stable Skin Exam: normal color, warm, dry, No rash Results - Labs Lab/Micro Results: Lab Results-Last 24 Hours 08/02/18 08/02/18 08/02/18 Range/Units 11:26 11:26 11:51 WBC 3.0 L (4.0-10.5) K/mm3 RBC 2.54 L (4.1-5.4) M/mm3 Hgb 7.4 L (12.0-16.0) gm/dl Hct 24.9 L (35-47) % MCV 98.0 (78-100) fl MCH 29.1 (26-32) pg MCHC 29.7 L (32-36) g/dl RDW 16.4 H (11.5-14.0) % Plt Count 81 L (150-450) K/mm3 MPV 12.4 H (6-9.5) fl Segmented Neutrophils 42 (36.0-66.0) % Band Neutrophils 4 H (0.0-2.0) % Lymphocytes (Manual) 53 H (24-44) % Monocytes (Manual) 1 (0.0-12.0) % Hypochromia 2+ Platelet Estimate DECREASED (NORMAL) RBC Morphology ABNORMAL Poikilocytosis Anisocytosis 2+ PT (9.95-12.35) SECONDS INR (0.8-3.0) Puncture Site LEFT RADIAL pCO2 43 (35-45) mmHg pO2 415 H* (75-100) mmHg Base Excess 9.4 H (-2.0-2.0) O2 Saturation 96.1 (94-100) g/dF ABG pH 7.50 H (7.35-7.45) ABG HCO3 33.5 H* (22-28) ABG O2 Sat (Measured) 99.2 (95-100) % Riccardo Test YES A-a Gradient 244 a/A Ratio 0.63 Hemoglobin 8.1 Carboxyhemoglobin 1.8 (0.0-6.9) % THgb Methemoglobin 1.3 L (1.4-1.5) % Potassium 4.4 (3.5-5.1) Temperature 37.0 C POC O2 Flow Rate 100 % Inspiratory BiPAP 16 Expiratory BiPAP 8 Sodium (137-145) mmol/L Chloride (98-107) mmol/L Carbon Dioxide (22-30) mmol/L Anion Gap (5-15) MEQ/L BUN (7-17) mg/dL Creatinine (0.52-1.04) mg/dL Estimated GFR ML/MIN Glucose (74-106) mg/dL Lactic Acid 0.7 (0.4-2.0) Calcium (8.4-10.2) mg/dL Total Bilirubin (0.2-1.3) mg/dL AST (14-36) U/L ALT (0-35) U/L Alkaline Phosphatase (38-126) U/L Troponin I (0.000-0.034) ng/mL NT-Pro-B Natriuret Pep (0-1800) pg/mL Serum Total Protein (6.3-8.2) g/dL Albumin (3.5-5.0) g/dL Urine Color (YELLOW) Urine Appearance (CLEAR) Urine pH (5-6) Ur Specific [place] (1.005-1.025) Urine Protein (Negative) Urine Ketones (NEGATIVE) Urine Blood (0-5) Misael/ul Urine Nitrite (NEGATIVE) Urine Bilirubin (NEGATIVE) Urine Urobilinogen (0-1) mg/dL Ur Leukocyte Esterase (NEGATIVE) Urine WBC (Auto) (0-5) /HPF Urine RBC (Auto) (0-2) /HPF U Hyaline Cast (Auto) (0-2) /LPF U Epithel Cells (Auto) (FEW) /HPF Urine Bacteria (Auto) (NEGATIVE) /HPF Urine Mucus (Auto) (NEGATIVE) /HPF Urine Culture Reflexed (NO) Urine Glucose (NEGATIVE) mg/dL Influenza Type A Ag (NEGATIVE) Influenza Type B Ag (NEGATIVE) RSV (PCR) (Negative) ABO Group Rh Factor Antibody Screen (NEGATIVE) Crossmatch (COMPATIBLE) 08/02/18 08/02/18 08/02/18 Range/Units 11:51 11:51 11:51 WBC (4.0-10.5) K/mm3 RBC (4.1-5.4) M/mm3 Hgb (12.0-16.0) gm/dl Hct (35-47) % MCV (78-100) fl MCH (26-32) pg MCHC (32-36) g/dl RDW (11.5-14.0) % Plt Count (150-450) K/mm3 MPV (6-9.5) fl Segmented Neutrophils (36.0-66.0) % Band Neutrophils (0.0-2.0) % Lymphocytes (Manual) (24-44) % Monocytes (Manual) (0.0-12.0) % Hypochromia Platelet Estimate (NORMAL) RBC Morphology Poikilocytosis Anisocytosis PT 15.4 H (9.95-12.35) SECONDS INR 1.32 (0.8-3.0) Puncture Site pCO2 (35-45) mmHg pO2 (75-100) mmHg Base Excess (-2.0-2.0) O2 Saturation (94-100) g/dF ABG pH (7.35-7.45) ABG HCO3 (22-28) ABG O2 Sat (Measured) (95-100) % Riccardo Test A-a Gradient a/A Ratio Hemoglobin Carboxyhemoglobin (0.0-6.9) % THgb Methemoglobin (1.4-1.5) % Potassium 4.4 (3.5-5.1) Temperature C POC O2 Flow Rate % Inspiratory BiPAP Expiratory BiPAP Sodium 133 L (137-145) mmol/L Chloride 90 L (98-107) mmol/L Carbon Dioxide 33 H (22-30) mmol/L Anion Gap 13.8 (5-15) MEQ/L BUN 20 H (7-17) mg/dL Creatinine 1.01 (0.52-1.04) mg/dL Estimated GFR 56.6 ML/MIN Glucose 124 H (74-106) mg/dL Lactic Acid (0.4-2.0) Calcium 8.8 (8.4-10.2) mg/dL Total Bilirubin 1.20 (0.2-1.3) mg/dL AST 113 H (14-36) U/L ALT 53 H (0-35) U/L Alkaline Phosphatase 121 (38-126) U/L Troponin I (0.000-0.034) ng/mL NT-Pro-B Natriuret Pep 2360 H (0-1800) pg/mL Serum Total Protein 6.7 (6.3-8.2) g/dL Albumin 3.6 (3.5-5.0) g/dL Urine Color (YELLOW) Urine Appearance (CLEAR) Urine pH (5-6) Ur Specific [place] (1.005-1.025) Urine Protein (Negative) Urine Ketones (NEGATIVE) Urine Blood (0-5) Misael/ul Urine Nitrite (NEGATIVE) Urine Bilirubin (NEGATIVE) Urine Urobilinogen (0-1) mg/dL Ur Leukocyte Esterase (NEGATIVE) Urine WBC (Auto) (0-5) /HPF Urine RBC (Auto) (0-2) /HPF U Hyaline Cast (Auto) (0-2) /LPF U Epithel Cells (Auto) (FEW) /HPF Urine Bacteria (Auto) (NEGATIVE) /HPF Urine Mucus (Auto) (NEGATIVE) /HPF Urine Culture Reflexed (NO) Urine Glucose (NEGATIVE) mg/dL Influenza Type A Ag (NEGATIVE) Influenza Type B Ag (NEGATIVE) RSV (PCR) (Negative) ABO Group Rh Factor Antibody Screen (NEGATIVE) Crossmatch (COMPATIBLE) 08/02/18 08/02/18 08/02/18 Range/Units 11:51 11:51 12:40 WBC (4.0-10.5) K/mm3 RBC (4.1-5.4) M/mm3 Hgb (12.0-16.0) gm/dl Hct (35-47) % MCV (78-100) fl MCH (26-32) pg MCHC (32-36) g/dl RDW (11.5-14.0) % Plt Count (150-450) K/mm3 MPV (6-9.5) fl Segmented Neutrophils (36.0-66.0) % Band Neutrophils (0.0-2.0) % Lymphocytes (Manual) (24-44) % Monocytes (Manual) (0.0-12.0) % Hypochromia Platelet Estimate (NORMAL) RBC Morphology Poikilocytosis Anisocytosis PT (9.95-12.35) SECONDS INR (0.8-3.0) Puncture Site pCO2 (35-45) mmHg pO2 (75-100) mmHg Base Excess (-2.0-2.0) O2 Saturation (94-100) g/dF ABG pH (7.35-7.45) ABG HCO3 (22-28) ABG O2 Sat (Measured) (95-100) % Riccardo Test A-a Gradient a/A Ratio Hemoglobin Carboxyhemoglobin (0.0-6.9) % THgb Methemoglobin (1.4-1.5) % Potassium (3.5-5.1) Temperature C POC O2 Flow Rate % Inspiratory BiPAP Expiratory BiPAP Sodium (137-145) mmol/L Chloride (98-107) mmol/L Carbon Dioxide (22-30) mmol/L Anion Gap (5-15) MEQ/L BUN (7-17) mg/dL Creatinine (0.52-1.04) mg/dL Estimated GFR ML/MIN Glucose (74-106) mg/dL Lactic Acid (0.4-2.0) Calcium (8.4-10.2) mg/dL Total Bilirubin (0.2-1.3) mg/dL AST (14-36) U/L ALT (0-35) U/L Alkaline Phosphatase (38-126) U/L Troponin I 0.017 (0.000-0.034) ng/mL NT-Pro-B Natriuret Pep (0-1800) pg/mL Serum Total Protein (6.3-8.2) g/dL Albumin (3.5-5.0) g/dL Urine Color HARLEY (YELLOW) Urine Appearance CLOUDY (CLEAR) Urine pH 5.0 (5-6) Ur Specific [place] 1.020 (1.005-1.025) Urine Protein 100 (Negative) Urine Ketones NEGATIVE (NEGATIVE) Urine Blood NEGATIVE (0-5) Misael/ul Urine Nitrite NEGATIVE (NEGATIVE) Urine Bilirubin NEGATIVE (NEGATIVE) Urine Urobilinogen 4 (0-1) mg/dL Ur Leukocyte Esterase NEGATIVE (NEGATIVE) Urine WBC (Auto) 6-10 (0-5) /HPF Urine RBC (Auto) 0-2 (0-2) /HPF U Hyaline Cast (Auto) 26-50 (0-2) /LPF U Epithel Cells (Auto) RARE (FEW) /HPF Urine Bacteria (Auto) MODERATE (NEGATIVE) /HPF Urine Mucus (Auto) MANY (NEGATIVE) /HPF Urine Culture Reflexed YES (NO) Urine Glucose NEGATIVE (NEGATIVE) mg/dL Influenza Type A Ag (NEGATIVE) Influenza Type B Ag (NEGATIVE) RSV (PCR) (Negative) ABO Group Rh Factor Antibody Screen (NEGATIVE) Crossmatch COMPATIBLE (COMPATIBLE) 08/02/18 08/02/18 08/02/18 Range/Units 12:40 15:20 18:07 WBC (4.0-10.5) K/mm3 RBC (4.1-5.4) M/mm3 Hgb (12.0-16.0) gm/dl Hct (35-47) % MCV (78-100) fl MCH (26-32) pg MCHC (32-36) g/dl RDW (11.5-14.0) % Plt Count (150-450) K/mm3 MPV (6-9.5) fl Segmented Neutrophils (36.0-66.0) % Band Neutrophils (0.0-2.0) % Lymphocytes (Manual) (24-44) % Monocytes (Manual) (0.0-12.0) % Hypochromia Platelet Estimate (NORMAL) RBC Morphology Poikilocytosis Anisocytosis PT (9.95-12.35) SECONDS INR (0.8-3.0) Puncture Site pCO2 (35-45) mmHg pO2 (75-100) mmHg Base Excess (-2.0-2.0) O2 Saturation (94-100) g/dF ABG pH (7.35-7.45) ABG HCO3 (22-28) ABG O2 Sat (Measured) (95-100) % Riccardo Test A-a Gradient a/A Ratio Hemoglobin Carboxyhemoglobin (0.0-6.9) % THgb Methemoglobin (1.4-1.5) % Potassium (3.5-5.1) Temperature C POC O2 Flow Rate % Inspiratory BiPAP Expiratory BiPAP Sodium (137-145) mmol/L Chloride (98-107) mmol/L Carbon Dioxide (22-30) mmol/L Anion Gap (5-15) MEQ/L BUN (7-17) mg/dL Creatinine (0.52-1.04) mg/dL Estimated GFR ML/MIN Glucose (74-106) mg/dL Lactic Acid (0.4-2.0) Calcium (8.4-10.2) mg/dL Total Bilirubin (0.2-1.3) mg/dL AST (14-36) U/L ALT (0-35) U/L Alkaline Phosphatase (38-126) U/L Troponin I 0.017 0.020 (0.000-0.034) ng/mL NT-Pro-B Natriuret Pep (0-1800) pg/mL Serum Total Protein (6.3-8.2) g/dL Albumin (3.5-5.0) g/dL Urine Color (YELLOW) Urine Appearance (CLEAR) Urine pH (5-6) Ur Specific [place] (1.005-1.025) Urine Protein (Negative) Urine Ketones (NEGATIVE) Urine Blood (0-5) Misael/ul Urine Nitrite (NEGATIVE) Urine Bilirubin (NEGATIVE) Urine Urobilinogen (0-1) mg/dL Ur Leukocyte Esterase (NEGATIVE) Urine WBC (Auto) (0-5) /HPF Urine RBC (Auto) (0-2) /HPF U Hyaline Cast (Auto) (0-2) /LPF U Epithel Cells (Auto) (FEW) /HPF Urine Bacteria (Auto) (NEGATIVE) /HPF Urine Mucus (Auto) (NEGATIVE) /HPF Urine Culture Reflexed (NO) Urine Glucose (NEGATIVE) mg/dL Influenza Type A Ag (NEGATIVE) Influenza Type B Ag (NEGATIVE) RSV (PCR) (Negative) ABO Group A Rh Factor POSITIVE Antibody Screen NEGATIVE (NEGATIVE) Crossmatch COMPATIBLE (COMPATIBLE) 08/02/18 08/02/18 08/02/18 Range/Units 20:57 23:57 Unknown WBC (4.0-10.5) K/mm3 RBC (4.1-5.4) M/mm3 Hgb (12.0-16.0) gm/dl Hct (35-47) % MCV (78-100) fl MCH (26-32) pg MCHC (32-36) g/dl RDW (11.5-14.0) % Plt Count (150-450) K/mm3 MPV (6-9.5) fl Segmented Neutrophils (36.0-66.0) % Band Neutrophils (0.0-2.0) % Lymphocytes (Manual) (24-44) % Monocytes (Manual) (0.0-12.0) % Hypochromia Platelet Estimate (NORMAL) RBC Morphology Poikilocytosis Anisocytosis PT (9.95-12.35) SECONDS INR (0.8-3.0) Puncture Site pCO2 (35-45) mmHg pO2 (75-100) mmHg Base Excess (-2.0-2.0) O2 Saturation (94-100) g/dF ABG pH (7.35-7.45) ABG HCO3 (22-28) ABG O2 Sat (Measured) (95-100) % Riccardo Test A-a Gradient a/A Ratio Hemoglobin Carboxyhemoglobin (0.0-6.9) % THgb Methemoglobin (1.4-1.5) % Potassium (3.5-5.1) Temperature C POC O2 Flow Rate % Inspiratory BiPAP Expiratory BiPAP Sodium (137-145) mmol/L Chloride (98-107) mmol/L Carbon Dioxide (22-30) mmol/L Anion Gap (5-15) MEQ/L BUN (7-17) mg/dL Creatinine (0.52-1.04) mg/dL Estimated GFR ML/MIN Glucose (74-106) mg/dL Lactic Acid (0.4-2.0) Calcium (8.4-10.2) mg/dL Total Bilirubin (0.2-1.3) mg/dL AST (14-36) U/L ALT (0-35) U/L Alkaline Phosphatase (38-126) U/L Troponin I 0.015 < 0.012 (0.000-0.034) ng/mL NT-Pro-B Natriuret Pep (0-1800) pg/mL Serum Total Protein (6.3-8.2) g/dL Albumin (3.5-5.0) g/dL Urine Color (YELLOW) Urine Appearance (CLEAR) Urine pH (5-6) Ur Specific [place] (1.005-1.025) Urine Protein (Negative) Urine Ketones (NEGATIVE) Urine Blood (0-5) Misael/ul Urine Nitrite (NEGATIVE) Urine Bilirubin (NEGATIVE) Urine Urobilinogen (0-1) mg/dL Ur Leukocyte Esterase (NEGATIVE) Urine WBC (Auto) (0-5) /HPF Urine RBC (Auto) (0-2) /HPF U Hyaline Cast (Auto) (0-2) /LPF U Epithel Cells (Auto) (FEW) /HPF Urine Bacteria (Auto) (NEGATIVE) /HPF Urine Mucus (Auto) (NEGATIVE) /HPF Urine Culture Reflexed (NO) Urine Glucose (NEGATIVE) mg/dL Influenza Type A Ag NEGATIVE (NEGATIVE) Influenza Type B Ag NEGATIVE (NEGATIVE) RSV (PCR) NEGATIVE (Negative) ABO Group Rh Factor Antibody Screen (NEGATIVE) Crossmatch (COMPATIBLE) 08/03/18 08/03/18 08/03/18 Range/Units 00:00 05:42 05:42 WBC 1.8 L* (4.0-10.5) K/mm3 RBC 3.17 L (4.1-5.4) M/mm3 Hgb 9.9 L D 9.2 L (12.0-16.0) gm/dl Hct 31.9 L 30.3 L (35-47) % MCV 95.6 (78-100) fl MCH 29.0 (26-32) pg MCHC 30.4 L (32-36) g/dl RDW 17.0 H (11.5-14.0) % Plt Count 75 L (150-450) K/mm3 MPV 12.6 H (6-9.5) fl Segmented Neutrophils 63 (36.0-66.0) % Band Neutrophils 1 (0.0-2.0) % Lymphocytes (Manual) 33 (24-44) % Monocytes (Manual) 3 (0.0-12.0) % Hypochromia 1+ Platelet Estimate DECREASED (NORMAL) RBC Morphology ABNORMAL Poikilocytosis 2+ Anisocytosis 2+ PT (9.95-12.35) SECONDS INR (0.8-3.0) Puncture Site pCO2 (35-45) mmHg pO2 (75-100) mmHg Base Excess (-2.0-2.0) O2 Saturation (94-100) g/dF ABG pH (7.35-7.45) ABG HCO3 (22-28) ABG O2 Sat (Measured) (95-100) % Riccardo Test A-a Gradient a/A Ratio Hemoglobin Carboxyhemoglobin (0.0-6.9) % THgb Methemoglobin (1.4-1.5) % Potassium 4.2 (3.5-5.1) Temperature C POC O2 Flow Rate % Inspiratory BiPAP Expiratory BiPAP Sodium 137 (137-145) mmol/L Chloride 95 L (98-107) mmol/L Carbon Dioxide 36 H (22-30) mmol/L Anion Gap 9.6 (5-15) MEQ/L BUN 24 H (7-17) mg/dL Creatinine 0.73 (0.52-1.04) mg/dL Estimated GFR > 60.0 ML/MIN Glucose 138 H (74-106) mg/dL Lactic Acid (0.4-2.0) Calcium 8.1 L (8.4-10.2) mg/dL Total Bilirubin 0.70 (0.2-1.3) mg/dL AST 78 H (14-36) U/L ALT 52 H (0-35) U/L Alkaline Phosphatase 106 (38-126) U/L Troponin I (0.000-0.034) ng/mL NT-Pro-B Natriuret Pep 2270 H (0-1800) pg/mL Serum Total Protein 6.3 (6.3-8.2) g/dL Albumin 3.3 L (3.5-5.0) g/dL Urine Color (YELLOW) Urine Appearance (CLEAR) Urine pH (5-6) Ur Specific [place] (1.005-1.025) Urine Protein (Negative) Urine Ketones (NEGATIVE) Urine Blood (0-5) Misael/ul Urine Nitrite (NEGATIVE) Urine Bilirubin (NEGATIVE) Urine Urobilinogen (0-1) mg/dL Ur Leukocyte Esterase (NEGATIVE) Urine WBC (Auto) (0-5) /HPF Urine RBC (Auto) (0-2) /HPF U Hyaline Cast (Auto) (0-2) /LPF U Epithel Cells (Auto) (FEW) /HPF Urine Bacteria (Auto) (NEGATIVE) /HPF Urine Mucus (Auto) (NEGATIVE) /HPF Urine Culture Reflexed (NO) Urine Glucose (NEGATIVE) mg/dL Influenza Type A Ag (NEGATIVE) Influenza Type B Ag (NEGATIVE) RSV (PCR) (Negative) ABO Group Rh Factor Antibody Screen (NEGATIVE) Crossmatch (COMPATIBLE) 08/03/18 Range/Units 06:15 WBC (4.0-10.5) K/mm3 RBC (4.1-5.4) M/mm3 Hgb (12.0-16.0) gm/dl Hct (35-47) % MCV (78-100) fl MCH (26-32) pg MCHC (32-36) g/dl RDW (11.5-14.0) % Plt Count (150-450) K/mm3 MPV (6-9.5) fl Segmented Neutrophils (36.0-66.0) % Band Neutrophils (0.0-2.0) % Lymphocytes (Manual) (24-44) % Monocytes (Manual) (0.0-12.0) % Hypochromia Platelet Estimate (NORMAL) RBC Morphology Poikilocytosis Anisocytosis PT (9.95-12.35) SECONDS INR (0.8-3.0) Puncture Site RIGHT BRACHIAL pCO2 66 H* (35-45) mmHg pO2 69 L (75-100) mmHg Base Excess 10.0 H (-2.0-2.0) O2 Saturation 92.1 L (94-100) g/dF ABG pH 7.36 (7.35-7.45) ABG HCO3 37.3 H* (22-28) ABG O2 Sat (Measured) 94.9 L (95-100) % Riccardo Test NOT APPLICABLE A-a Gradient 162 a/A Ratio 0.30 Hemoglobin 9.9 Carboxyhemoglobin 2.3 (0.0-6.9) % THgb Methemoglobin 0.8 L (1.4-1.5) % Potassium 4.3 (3.5-5.1) Temperature 37.0 C POC O2 Flow Rate 44 % Inspiratory BiPAP Expiratory BiPAP Sodium (137-145) mmol/L Chloride (98-107) mmol/L Carbon Dioxide (22-30) mmol/L Anion Gap (5-15) MEQ/L BUN (7-17) mg/dL Creatinine (0.52-1.04) mg/dL Estimated GFR ML/MIN Glucose (74-106) mg/dL Lactic Acid (0.4-2.0) Calcium (8.4-10.2) mg/dL Total Bilirubin (0.2-1.3) mg/dL AST (14-36) U/L ALT (0-35) U/L Alkaline Phosphatase (38-126) U/L Troponin I (0.000-0.034) ng/mL NT-Pro-B Natriuret Pep (0-1800) pg/mL Serum Total Protein (6.3-8.2) g/dL Albumin (3.5-5.0) g/dL Urine Color (YELLOW) Urine Appearance (CLEAR) Urine pH (5-6) Ur Specific [place] (1.005-1.025) Urine Protein (Negative) Urine Ketones (NEGATIVE) Urine Blood (0-5) Misael/ul Urine Nitrite (NEGATIVE) Urine Bilirubin (NEGATIVE) Urine Urobilinogen (0-1) mg/dL Ur Leukocyte Esterase (NEGATIVE) Urine WBC (Auto) (0-5) /HPF Urine RBC (Auto) (0-2) /HPF U Hyaline Cast (Auto) (0-2) /LPF U Epithel Cells (Auto) (FEW) /HPF Urine Bacteria (Auto) (NEGATIVE) /HPF Urine Mucus (Auto) (NEGATIVE) /HPF Urine Culture Reflexed (NO) Urine Glucose (NEGATIVE) mg/dL Influenza Type A Ag (NEGATIVE) Influenza Type B Ag (NEGATIVE) RSV (PCR) (Negative) ABO Group Rh Factor Antibody Screen (NEGATIVE) Crossmatch (COMPATIBLE) - Radiology Impressions Radiology Exams & Impressions: Radiology Procedures Category Date Time Status CHEST 1 VIEW (PORTABLE) Stat Exams 08/02/18 11:30 Completed HEAD WITHOUT CONTRAST [CT] Stat Exams 08/02/18 11:33 Completed - Other Procedures and Tests Respiratory Therapy 08/02/18 15:08 BiPap/CPAP ROUTINE 08/02/18 21:13 Oxygen NASAL CANNULA 6 lpm 08/03/18 06:50 Respiratory Therapy Assessment DAILY 08/03/18 07:08 Peak Expiratory Flow Rate ONCE Assessment/Plan (1) Pancytopenia Current Visit: Yes Status: Acute Onset Date: ~08/02/18 Code(s): D61.818 - OTHER PANCYTOPENIA (2) Altered mental status Current Visit: Yes Status: Acute Assessment & Plan: likely secondary to hypoxia, she is alert and oriented at this time Code(s): R41.82 - ALTERED MENTAL STATUS, UNSPECIFIED (3) Rectal carcinoma Current Visit: Yes Status: Acute Assessment & Plan: with pancytopenia and lack of followup will get a noncontrasted abd/pelvis ct Code(s): C20 - MALIGNANT NEOPLASM OF RECTUM (4) COPD (chronic obstructive pulmonary disease) Current Visit: No Status: Acute Assessment & Plan: patient appears to be back to her baseline, ok to move out of ICU. will resume xarelto at this time
[2018-08-03] MEDS: Lasix 40 MG PO SCH ×2 (09:47→16:37)
[2018-08-03] MEDS: ROCEPHIN 1 Gm-D5w 50 ml Bag** 1 G/50 ML IVPB IV SCH (09:47)
[2018-08-03] MEDS: XARELTO 10 MG TABLET PO SCH (09:48)
[2018-08-03] MEDS: Klor Con 10 MEQ PO SCH ×2 (09:48→22:44)
[2018-08-03] MEDS: COREG 12.5 MG PO SCH ×2 (09:48→22:44)
[2018-08-03] MEDS: Protonix 40MG Tablet PO SCH (09:48)
[2018-08-03] MEDS ORDERED: NON-FORMULARY ITEM (Omeprazole [Omeprazole] 40 MG) PO SCH (10:00)
[2018-08-03] MEDS ORDERED: ENOXAPARIN SODIUM SQ SCH (10:00)
[2018-08-03] MEDS ORDERED: NON-FORMULARY ITEM (Fluticasone/Vilanterol [Breo Ellipta 100-25 Mcg Inh] 1 EACH) IH SCH (10:00)
[2018-08-03] MEDS ORDERED: HALOBETASOL PROPIONATE EXT SCH (10:00)
[2018-08-03] MEDS: KENALOG 0.1% CREAM 15 GM TP SCH (10:04)
[2018-08-03] MEDS: Zithromax 500 MG/ 250 ML NaCl Premix 500 MG/250 ML IVPB IV SCH (10:26)
--- NOTE | 2018-08-03 12:23 | XRAY ---
Indication: Pancytopenia. History squamous cell carcinoma. Multiple contiguous axial images obtained through the abdomen and pelvis using 80 cc Isovue 370 contrast only. Comparison: August 27, 2016. Lung bases again demonstrates pulmonary emphysema with scattered fibrosis/scarring. New minimal bibasilar dependent atelectasis. No infiltrate or effusion. Heart is not enlarged. The head, body, and uncinate portion of the pancreas now appears edematous with peripancreatic stranding/fluid favoring pancreatitis. No pancreatic duct dilatation or free fluid/air. Again abnormal gallbladder with large gallstone and wall thickening/enhancement concerning for cholecystitis. Common bile duct is distended up to 12 mm. No intrahepatic biliary distention. Noncontrasted stomach and bowel loops appear nonobstructed. Again scattered colonic diverticulosis greatest in the sigmoid. Spleen is now enlarged measuring 13 cm in greatest axial dimension. New 1.3 cm left mid renal exophytic cyst and Harrell balloon tip catheter in the urinary bladder lumen. Remaining liver, adrenal glands, kidneys, and ureters appear unremarkable. Again hysterectomy. There remains heavy scattered vascular calcifications. No AAA or pathologic retroperitoneal lymphadenopathy. Osseous structures again demonstrates moderate/advanced multilevel degenerative spondylosis, grade 1 L5 spondylolisthesis, moderate double curvature scoliosis, mild degenerative changes of both hips, and 2 cm left S2 perineural cyst. No ventral or inguinal hernias. Impression: 1. New CT findings favoring pancreatitis. No free fluid/air. 2. Again large gallstone with abnormal wall thickening/enhancement and common bile duct distention. Rule out cholecystitis. 3. New left renal exophytic cyst and splenomegaly. 4. Stable colonic diverticulosis, pulmonary emphysema, multilevel degenerative spondylosis, grade 1 L5 spondylolisthesis, scoliosis, and left S2 perineural cyst. CT DI 22.81
[2018-08-03] MEDS: ZOCOR 20MG PO SCH (22:44)
[2018-08-04] MEDS: Sodium Chloride 0.9% 500 ML 500 ML IV SCH ×2 (01:37→14:02)
[2018-08-04] MEDS: PROVENTIL 2.5 MG/3 ML NEB IH PRN (03:50)
[2018-08-04 05:59] LABS: Hematocrit 29.2 % (35-47); Hemoglobin 8.8 gm/dl (12.0-16.0); Mean Corpuscular Hemoglobin 29.2 pg (26-32); Mean Corpuscular Hgb Concent. 30.1 g/dl (32-36); Platelet Count 76 K/mm3 (150-450); Red Blood Count 3.01 M/mm3 (4.1-5.4); Red Cell Distribution Width 16.8 % (11.5-14.0); White Blood Count 2.1 K/mm3 (4.0-10.5)
[2018-08-04 06:20] LABS: ALBUMIN 2.9 g/dL (3.5-5.0); ALKALINE PHOSPHATASE 81 U/L (38-126); ANION GAP 8.2 MEQ/L (5-15); BLOOD UREA NITROGEN 23 mg/dL (7-17); CHLORIDE 96 mmol/L (98-107); Calcium 8.1 mg/dL (8.4-10.2); Carbon Dioxide 38 mmol/L (22-30); Creatinine 1 0.76 mg/dL (0.52-1.04); Glucose 105 mg/dL (74-106); SGOT/AST 50 U/L (14-36); SGPT/ALT 40 U/L (0-35); SODIUM 138 mmol/L (137-145); Total Protein 5.7 g/dL (6.3-8.2)
[2018-08-04] MEDS: PROVENTIL 2.5 MG/3 ML NEB IH SCH ×4 (07:02→17:40)
[2018-08-04] MEDS: ADVAIR 250-50 DISKUS 14 DOSE IH SCH ×2 (07:02→19:07)
[2018-08-04 08:10] LABS: Lymphocytes 27 % (24-44); Monocyte 3 % (0.0-12.0); Neutrophils 70 % (36.0-66.0); Total Cells Counted 100
[2018-08-04 08:11] LABS: ANISOCYTOSIS 1+; Hypochromia 1+; Platelet Estimate DECREASED (NORMAL)
--- NOTE | 2018-08-04 08:20 | PCM.NOTE ---
Date and Time: 08/04/18818 Subjective Assessment: patient is tolerating po intake, she is short of breath but no significant cough. has end-stage/advanced copd Objective Exam General Appearance: no apparent distress, alert Skin Exam: normal color, warm, dry Respiratory Exam: diminished breath sounds, prolonged expirations Cardiovascular Exam: regular rate/rhythm, normal heart sounds Gastrointestinal/Abdomen Exam: soft, No tenderness, No mass Extremity Exam: normal inspection, normal range of motion OBJECTIVE DATA Vital Signs: Vital Signs - 24 hr Temp Pulse Resp BP Pulse Ox 08/04/18 07:18 97.8 F 66 22 117/51 96 08/04/18 07:15 66 22 96 08/04/18 04:37 62 29 H 96 08/04/18 04:00 97.6 F 62 23 124/60 99 08/04/18 00:00 97.9 F 97 H 20 120/53 99 08/03/18 22:02 69 25 H 97 08/03/18 20:00 97.4 F 66 19 113/51 94 L 08/03/18 16:00 97.6 F 66 20 117/59 95 08/03/18 14:59 65 20 96 08/03/18 12:00 97.8 F 78 20 100/49 93 L 08/03/18 10:14 77 20 96 Oxygen-Last 24 hours O2 Percentage 6 Liters = 44% O2 Percentage 6 Liters = 44% O2 Percentage 6 Liters = 44% O2 Percentage 6 Liters = 44% O2 Percentage 6 Liters = 44% Oxygen Flowrate (L/min)-RT 6 Pain Assessment - Last Documented Pain Intensity 0 Pain Scale Used 0-10 Pain Scale,FLACC Intake and Output: Intake & Output 08/01/18 08/02/18 08/03/18 08/04/18 11:59 11:59 11:59 11:59 Intake Total 1281 1450 Output Total 30 2460 2150 Balance -56 -3713 -491 Weight 81.1 kg 77.9 kg Lab Results: Lab Results-Last 24 Hours 08/04/18 08/04/18 Range/Units 05:20 05:20 WBC 2.1 L (4.0-10.5) K/mm3 RBC 3.01 L (4.1-5.4) M/mm3 Hgb 8.8 L (12.0-16.0) gm/dl Hct 29.2 L (35-47) % MCV 97.0 (78-100) fl MCH 29.2 (26-32) pg MCHC 30.1 L (32-36) g/dl RDW 16.8 H (11.5-14.0) % Plt Count 76 L (150-450) K/mm3 MPV 12.0 H (6-9.5) fl Segmented Neutrophils 70 H (36.0-66.0) % Lymphocytes (Manual) 27 (24-44) % Monocytes (Manual) 3 (0.0-12.0) % Hypochromia 1+ Platelet Estimate DECREASED (NORMAL) RBC Morphology ABNORMAL Anisocytosis 1+ Sodium 138 (137-145) mmol/L Potassium 4.0 (3.5-5.1) mmol/L Chloride 96 L (98-107) mmol/L Carbon Dioxide 38 H (22-30) mmol/L Anion Gap 8.2 (5-15) MEQ/L BUN 23 H (7-17) mg/dL Creatinine 0.76 (0.52-1.04) mg/dL Estimated GFR > 60.0 ML/MIN Glucose 105 (74-106) mg/dL Calcium 8.1 L (8.4-10.2) mg/dL Total Bilirubin 0.40 (0.2-1.3) mg/dL AST 50 H (14-36) U/L ALT 40 H (0-35) U/L Alkaline Phosphatase 81 (38-126) U/L Serum Total Protein 5.7 L (6.3-8.2) g/dL Albumin 2.9 L (3.5-5.0) g/dL Radiology Exams: Radiology Procedures Category Date Time Status ABDOMEN AND PELVIS W CONTRAST [CT] Urgent Exams 08/03/18 09:06 Completed CHEST 1 VIEW (PORTABLE) Stat Exams 08/02/18 11:30 Completed HEAD WITHOUT CONTRAST [CT] Stat Exams 08/02/18 11:33 Completed Multi-Disciplinary Progress Notes: Multi-Disciplinary Progress Notes 08/03/18 14:59 Physical Therapy Note by Zoila Joyce PATIENT REFUSED THERAPY INTERVENTION TODAY STATING SHE WAS WORN OUT AFTER TRANSFER FROM ICU TO [facility] FLOOR AND CONTINUED MEDICAL WORK-UP TESTING. AGREED TO TRY IN THE A.M. PATIENT'S SON DID BRING IN HER TRIANGLE ROLLER WALKER THAT SHE USES TO AMBULATE AT HOME. 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 REPORTS THAT SHE ALWAYS WEARS OXYGEN (08/03) AT 6L PER NC THAT [facility] [place] PROVIDES. ALSO, USES ROLLATOR WALKER THAT IS AT BEDSIDE. DID DISCUSS REHAB STAY VS HOME WITH [facility]. REPORTS THAT SHE HAS BEEN TO [facility] IN PAST, AND IT WAS VERY GOOD, BUT SHE DOES NOT FEEL THAT IT WILL BE NECESSARY. HER SON IS WITH HER 08/03, ALSO, SHE HAS A SON THAT LIVES NEXT DOOR WITH HIS /CHILDREN, SO SHE HAS A LOT OF SUPPORT. DID ENCOURAGE HER TO THINK ABOUT [facility] FOR [facility] SUPPORT AT THE VERY LEAST ON DISCHARGE. REPORTS THAT SHE WILL DISCUSS WITH HER FAMILY. WILL CONTINUE TO FOLLOW FOR ALL DC NEEDS. Initialized on 08/03/18 15:12 - END OF NOTE Assessment/Plan (1) Pancytopenia Current Visit: Yes Status: Acute Onset Date: ~08/02/18 Assessment & Plan: will consult with hem/onc, pt requestes Dr Nj Code(s): D61.818 - OTHER PANCYTOPENIA (2) Altered mental status Current Visit: Yes Status: Acute Code(s): R41.82 - ALTERED MENTAL STATUS, UNSPECIFIED (3) Rectal carcinoma Current Visit: Yes Status: Acute Code(s): C20 - MALIGNANT NEOPLASM OF RECTUM (4) COPD (chronic obstructive pulmonary disease) Current Visit: No Status: Acute
[2018-08-04] MEDS: Protonix 40MG Tablet PO SCH (10:04)
[2018-08-04] MEDS: Klor Con 10 MEQ PO SCH ×2 (10:04→21:25)
[2018-08-04] MEDS: ROCEPHIN 1 Gm-D5w 50 ml Bag** 1 G/50 ML IVPB IV SCH (10:04)
[2018-08-04] MEDS: Lasix 40 MG PO SCH ×2 (10:05→17:16)
[2018-08-04] MEDS: COREG 12.5 MG PO SCH ×2 (10:05→21:25)
[2018-08-04] MEDS: XARELTO 10 MG TABLET PO SCH (10:05)
[2018-08-04] MEDS: KENALOG 0.1% CREAM 15 GM TP SCH (10:07)
[2018-08-04] MEDS: Zithromax 500 MG/ 250 ML NaCl Premix 500 MG/250 ML IVPB IV SCH (10:50)
[2018-08-04 17:31] LABS: Folate (Folic Acid) 5.15 ng/mL (2.76 - >20)
[2018-08-04] MEDS: ZOCOR 20MG PO SCH (21:25)
[2018-08-05] MEDS: Sodium Chloride 0.9% 500 ML 500 ML IV SCH ×4 (00:23→21:24)
[2018-08-05] MEDS: ADVAIR 250-50 DISKUS 14 DOSE IH SCH ×3 (06:24→18:56)
[2018-08-05] MEDS: PROVENTIL 2.5 MG/3 ML NEB IH SCH (06:24)
[2018-08-05 06:46] LABS: Basophil (Absolute #) 0 (0-0.4); Eosinophil (Absolute #) 0 (0-0.5); Granulocyte Absolute (ANC) 1.78 (1.4-6.9); Granulocytes % 66.1 % (36.0-66.0); Hematocrit 29.8 % (35-47); Hemoglobin 8.9 gm/dl (12.0-16.0); Lymphocyte (Absolute #) 0.61 (1.0-4.6); Lymphocytes % 22.7 % (24.0-44.0); Mean Cell Volume 97.4 fl (78-100); Mean Corpuscular Hgb Concent. 29.9 g/dl (32-36); Mean Platelet Volume 12.7 fl (6-9.5); Monocytes % 11.2 % (0.0-12.0); Red Blood Count 3.06 M/mm3 (4.1-5.4); Red Cell Distribution Width 16.8 % (11.5-14.0); White Blood Count 2.7 K/mm3 (4.0-10.5)
[2018-08-05 07:21] LABS: ALBUMIN 3.1 g/dL (3.5-5.0); ALKALINE PHOSPHATASE 84 U/L (38-126); ANION GAP 8.2 MEQ/L (5-15); BLOOD UREA NITROGEN 11 mg/dL (7-17); CHLORIDE 91 mmol/L (98-107); Calcium 8.1 mg/dL (8.4-10.2); Carbon Dioxide 38 mmol/L (22-30); Creatinine 1 0.62 mg/dL (0.52-1.04); Glucose 95 mg/dL (74-106); Potassium 3.7 mmol/L (3.5-5.1); SGOT/AST 45 U/L (14-36); SGPT/ALT 41 U/L (0-35); SODIUM 133 mmol/L (137-145); Total Protein 6.1 g/dL (6.3-8.2)
[2018-08-05 07:37] LABS: Platelet Count 95 K/mm3 (150-450)
[2018-08-05] MEDS: PROVENTIL 2.5 MG/3 ML NEB IH PRN (08:07)
--- NOTE | 2018-08-05 08:32 | PCM.NOTE ---
Date and Time: 08/05/18828 Subjective Assessment: patient is still very short of breath with minimal exertion, not able to tolerate much ambulation. she is tolerating po, had a period of confusion last night. was placed on bipap Objective Exam General Appearance: no apparent distress, alert Neurologic Exam: alert, oriented x 3, cooperative Skin Exam: normal color, warm, dry Respiratory Exam: prolonged expirations, wheezing Cardiovascular Exam: regular rate/rhythm, normal heart sounds Gastrointestinal/Abdomen Exam: soft, No tenderness, No mass Extremity Exam: normal inspection, normal range of motion OBJECTIVE DATA Vital Signs: Vital Signs - 24 hr Temp Pulse Resp BP Pulse Ox 08/05/18 08:12 68 24 97 08/05/18 07:46 98.8 F 71 21 131/59 99 08/05/18 06:39 71 21 99 08/05/18 04:00 97.9 F 75 23 135/72 98 08/05/18 00:00 97.9 F 72 23 148/67 97 08/04/18 20:00 98.4 F 72 28 H 129/64 94 L 08/04/18 19:09 77 22 94 L 08/04/18 17:50 78 24 94 L 08/04/18 16:48 97.6 F 69 20 144/74 96 08/04/18 14:46 67 22 97 08/04/18 12:43 98 F 68 20 120/58 98 08/04/18 10:36 77 22 98 Oxygen-Last 24 hours O2 Percentage 50% O2 Percentage 50% O2 Percentage 6 Liters = 44% O2 Percentage 6 Liters = 44% O2 Percentage 4 Liters = 36% Pain Assessment - Last Documented Pain Intensity 0 Pain Scale Used 0-10 Pain Scale,FLACC Intake and Output: Intake & Output 08/02/18 08/03/18 08/04/18 08/05/18 11:59 11:59 11:59 11:59 Intake Total 1281 1690 2146 Output Total 30 2800 2150 3200 Balance -86 -1095 -683 -5517 Weight 81.1 kg 77.9 kg 77.9 kg Lab Results: Lab Results-Last 24 Hours 08/04/18 08/04/18 08/04/18 Range/Units 05:20 05:20 16:17 WBC (4.0-10.5) K/mm3 RBC (4.1-5.4) M/mm3 Hgb (12.0-16.0) gm/dl Hct (35-47) % MCV (78-100) fl MCH (26-32) pg MCHC (32-36) g/dl RDW (11.5-14.0) % Plt Count (150-450) K/mm3 MPV (6-9.5) fl Gran % (36.0-66.0) % Eos # (Auto) (0-0.5) Absolute Lymphs (auto) (1.0-4.6) Absolute Monos (auto) (0.0-1.3) Lymphocytes % (24.0-44.0) % Monocytes % (0.0-12.0) % Eosinophils % (0.00-5.0) % Basophils % (0.0-0.4) % Absolute Granulocytes (1.4-6.9) Basophils # (0-0.4) Sodium (137-145) mmol/L Potassium (3.5-5.1) mmol/L Chloride (98-107) mmol/L Carbon Dioxide (22-30) mmol/L Anion Gap (5-15) MEQ/L BUN (7-17) mg/dL Creatinine (0.52-1.04) mg/dL Estimated GFR ML/MIN Glucose (74-106) mg/dL Calcium (8.4-10.2) mg/dL Iron (37-170) ug/dL Ferritin 1780 H (11.1-264) ng/mL Total Bilirubin (0.2-1.3) mg/dL AST (14-36) U/L ALT (0-35) U/L Alkaline Phosphatase (38-126) U/L Serum Total Protein (6.3-8.2) g/dL Albumin (3.5-5.0) g/dL Amylase 257 H (30-110) U/L Lipase 1111 H (23-300) U/L Vitamin B12 578 (239-931) pg/mL Folic Acid 5.15 (2.76 - >20) ng/mL 08/04/18 08/05/18 08/05/18 Range/Units 16:17 05:50 05:50 WBC 2.7 L (4.0-10.5) K/mm3 RBC 3.06 L (4.1-5.4) M/mm3 Hgb 8.9 L (12.0-16.0) gm/dl Hct 29.8 L (35-47) % MCV 97.4 (78-100) fl MCH 29.0 (26-32) pg MCHC 29.9 L (32-36) g/dl RDW 16.8 H (11.5-14.0) % Plt Count 95 L (150-450) K/mm3 MPV 12.7 H (6-9.5) fl Gran % 66.1 H (36.0-66.0) % Eos # (Auto) 0 (0-0.5) Absolute Lymphs (auto) 0.61 L (1.0-4.6) Absolute Monos (auto) 0.30 (0.0-1.3) Lymphocytes % 22.7 L (24.0-44.0) % Monocytes % 11.2 (0.0-12.0) % Eosinophils % 0.0 (0.00-5.0) % Basophils % 0.0 (0.0-0.4) % Absolute Granulocytes 1.78 (1.4-6.9) Basophils # 0 (0-0.4) Sodium 133 L (137-145) mmol/L Potassium 3.7 (3.5-5.1) mmol/L Chloride 91 L (98-107) mmol/L Carbon Dioxide 38 H (22-30) mmol/L Anion Gap 8.2 (5-15) MEQ/L BUN 11 (7-17) mg/dL Creatinine 0.62 (0.52-1.04) mg/dL Estimated GFR > 60.0 ML/MIN Glucose 95 (74-106) mg/dL Calcium 8.1 L (8.4-10.2) mg/dL Iron 50 (37-170) ug/dL Ferritin (11.1-264) ng/mL Total Bilirubin 0.60 (0.2-1.3) mg/dL AST 45 H (14-36) U/L ALT 41 H (0-35) U/L Alkaline Phosphatase 84 (38-126) U/L Serum Total Protein 6.1 L (6.3-8.2) g/dL Albumin 3.1 L (3.5-5.0) g/dL Amylase (30-110) U/L Lipase (23-300) U/L Vitamin B12 (239-931) pg/mL Folic Acid (2.76 - >20) ng/mL Radiology Exams: Radiology Procedures Category Date Time Status ABDOMEN AND PELVIS W CONTRAST [CT] Urgent Exams 08/03/18 09:06 Completed Multi-Disciplinary Progress Notes: Multi-Disciplinary Progress Notes 08/05/18 08:17 Case Management Note by Martha Santana LEVEL I WEB APPROVED, NO LEVEL II REQUIRED, LEVEL OF CARE STILL ON QUEUE. Initialized on 08/05/18 08:17 - END OF NOTE 08/05/18 05:48 Respiratory Note by Joel Curry PT PLACED ON BIPAP AT 2140. Initialized on 08/05/18 05:48 - END OF NOTE 08/04/18 18:58 Case Management Note by Martha Santana LEVEL I AND L.O.C. ON QUEUE Initialized on 08/04/18 18:58 - END OF NOTE 08/04/18 13:02 Case Management Note by Crystal Tomlin S/W PATIENT ABOUT DC NEEDS TODAY, SHE NOW FEELS SHE WOULD BENEFIT A REHAB STAY EITHER HERE A SWING BED OR TO [facility] WHICH SHE HAS BEEN BEFORE. CONSULT TO HEM/ ONC TODAY WILL WAIT TO SEE WHAT THAT RESULTS IN. PRESENTED PATIENT IMPORTANT MESSAGE FROM MEDICARE, EXPLAINED IT TO PATIENT. SHE REFUSED TO SIGN AT THIS TIME, WOULD LIKE TO LOOK AT IT AND SIGN LATER. LEFT IN ROOM AT THIS TIME Initialized on 08/04/18 13:02 - END OF NOTE Assessment/Plan (1) COPD exacerbation Current Visit: Yes Status: Acute Assessment & Plan: continue nebs, rocephin and zithromax. audible wheezing today, will add solu- medrol. 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 she feels these are related to nutritional status, she will f/u after discharge to arrange care for followup on rectal cancer and further workup for pancytopenia Code(s): D61.818 - OTHER PANCYTOPENIA (3) Altered mental status Current Visit: Yes Status: Acute Code(s): R41.82 - ALTERED MENTAL STATUS, UNSPECIFIED (4) Rectal carcinoma Current Visit: Yes Status: Acute Code(s): C20 - MALIGNANT NEOPLASM OF RECTUM (5) End stage chronic obstructive pulmonary disease Current Visit: Yes Status: Acute Code(s): J44.9 - CHRONIC OBSTRUCTIVE PULMONARY DISEASE, UNSPECIFIED
[2018-08-05] MEDS: Zithromax 500 MG/ 250 ML NaCl Premix 500 MG/250 ML IVPB IV SCH (09:11)
[2018-08-05] MEDS: solu-MEDROL 125 MG IV SCH ×3 (09:11→20:30)
[2018-08-05] MEDS: ROCEPHIN 1 Gm-D5w 50 ml Bag** 1 G/50 ML IVPB IV SCH (09:11)
[2018-08-05] MEDS: COREG 12.5 MG PO SCH ×2 (09:12→21:25)
[2018-08-05] MEDS: Lasix 40 MG PO SCH ×2 (09:12→16:09)
[2018-08-05] MEDS: Klor Con 10 MEQ PO SCH ×2 (09:12→21:25)
[2018-08-05] MEDS: XARELTO 10 MG TABLET PO SCH (09:12)
[2018-08-05] MEDS: Protonix 40MG Tablet PO SCH (09:12)
[2018-08-05] MEDS: KENALOG 0.1% CREAM 15 GM TP SCH (09:12)
[2018-08-05] MEDS: DUONEB 0.5-3 MG/3 ml Neb IH SCH ×4 (10:42→23:26)
[2018-08-05] MEDS: ZOCOR 20MG PO SCH (21:25)
[2018-08-06] MEDS: solu-MEDROL 125 MG IV SCH (02:11)
[2018-08-06 06:23] LABS: Hemoglobin 8.7 gm/dl (12.0-16.0); Mean Cell Volume 97.3 fl (78-100); Mean Platelet Volume 12.5 fl (6-9.5); Platelet Count 95 K/mm3 (150-450); Red Blood Count 2.98 M/mm3 (4.1-5.4); Red Cell Distribution Width 15.7 % (11.5-14.0)
[2018-08-06 06:44] LABS: ALBUMIN 3.1 g/dL (3.5-5.0); ALKALINE PHOSPHATASE 77 U/L (38-126); ANION GAP 7.2 MEQ/L (5-15); BLOOD UREA NITROGEN 11 mg/dL (7-17); CHLORIDE 94 mmol/L (98-107); Calcium 8.5 mg/dL (8.4-10.2); Carbon Dioxide 40 mmol/L (22-30); Creatinine 1 0.55 mg/dL (0.52-1.04); Glucose 189 mg/dL (74-106); Potassium 4.3 mmol/L (3.5-5.1); SGOT/AST 39 U/L (14-36); SGPT/ALT 42 U/L (0-35); SODIUM 137 mmol/L (137-145); Total Protein 6.1 g/dL (6.3-8.2)
[2018-08-06 06:48] LABS: Mean Corpuscular Hemoglobin 29.1 pg (26-32); White Blood Count 1.2 K/mm3 (4.0-10.5)
[2018-08-06] MEDS: DUONEB 0.5-3 MG/3 ml Neb IH SCH ×5 (06:52→23:17)
[2018-08-06] MEDS: ADVAIR 250-50 DISKUS 14 DOSE IH SCH ×2 (06:53→19:52)
[2018-08-06 07:52] LABS: BAND 2 % (0.0-2.0); Hypochromia 1+; Lymphocytes 22 % (24-44); Monocyte 4 % (0.0-12.0); Neutrophils 72 % (36.0-66.0); Polychromasia 1+; Total Cells Counted 100
[2018-08-06 07:53] LABS: Platelet Estimate DECREASED (NORMAL)
--- NOTE | 2018-08-06 08:59 | PCM.NOTE ---
Date and Time: 08/06/18854 Subjective Assessment: states she feels "80% better" she is motivated to start exercising in her room today to get her strength up so she can go home with home health. She thinks her breathing is improving no chest pain or shortness of breath no evidence of bleeding. Objective Exam General Appearance: no apparent distress, obese Neurologic Exam: alert, oriented x 3, cooperative Skin Exam: warm, dry Eye Exam: pale conjunctivae, No scleral icterus Respiratory Exam: prolonged expirations, wheezing Cardiovascular Exam: irregular, No murmur, No edema Gastrointestinal/Abdomen Exam: soft, normal bowel sounds, No tenderness, No distention Extremity Exam: normal inspection, No calf tenderness, No pedal edema OBJECTIVE DATA Vital Signs: Vital Signs - 24 hr Temp Pulse Resp BP Pulse Ox 08/06/18 07:48 97.4 F 66 18 149/71 96 08/06/18 06:56 68 18 97 08/06/18 04:08 98.3 F 74 20 142/67 97 08/06/18 00:26 98.2 F 79 20 129/62 96 08/05/18 19:50 97.7 F 74 20 127/56 98 08/05/18 18:57 77 20 95 08/05/18 16:00 98 F 96 H 20 137/63 98 08/05/18 14:18 80 22 94 L 08/05/18 12:00 98 F 68 20 100/54 100 08/05/18 10:47 72 24 99 Oxygen-Last 24 hours O2 Percentage 6 Liters = 44% O2 Percentage 6 Liters = 44% O2 Percentage 6 Liters = 44% O2 Percentage 6 Liters = 44% O2 Percentage 6 Liters = 44% Pain Assessment - Last Documented Pain Intensity 0 Pain Scale Used 0-10 Pain Scale Intake and Output: Intake & Output 08/03/18 08/04/18 08/05/18 08/06/18 11:59 11:59 11:59 11:59 Intake Total 1281 1690 2146 3103 Output Total 2800 2150 3200 4350 Balance -1470 -460 -2674 -4797 Weight 77.9 kg 77.9 kg Lab Results: Lab Results-Last 24 Hours 08/04/18 08/06/18 08/06/18 Range/Units 05:55 05:40 05:40 WBC 1.2 L* (4.0-10.5) K/mm3 RBC 2.98 L (4.1-5.4) M/mm3 Hgb 8.7 L (12.0-16.0) gm/dl Hct 29.0 L (35-47) % MCV 97.3 (78-100) fl MCH 29.1 (26-32) pg MCHC 30.0 L (32-36) g/dl RDW 15.7 H (11.5-14.0) % Plt Count 95 L (150-450) K/mm3 MPV 12.5 H (6-9.5) fl Segmented Neutrophils 72 H (36.0-66.0) % Band Neutrophils 2 (0.0-2.0) % Lymphocytes (Manual) 22 L (24-44) % Monocytes (Manual) 4 (0.0-12.0) % Hypochromia 1+ Platelet Estimate DECREASED (NORMAL) RBC Morphology ABNORMAL Polychromasia 1+ Retic Count 2.03 (0.58-2.38) % Sodium 137 (137-145) mmol/L Potassium 4.3 (3.5-5.1) mmol/L Chloride 94 L (98-107) mmol/L Carbon Dioxide 40 H (22-30) mmol/L Anion Gap 7.2 (5-15) MEQ/L BUN 11 (7-17) mg/dL Creatinine 0.55 (0.52-1.04) mg/dL Estimated GFR > 60.0 ML/MIN Glucose 189 H (74-106) mg/dL Calcium 8.5 (8.4-10.2) mg/dL Total Bilirubin 0.40 (0.2-1.3) mg/dL AST 39 H (14-36) U/L ALT 42 H (0-35) U/L Alkaline Phosphatase 77 (38-126) U/L Serum Total Protein 6.1 L (6.3-8.2) g/dL Albumin 3.1 L (3.5-5.0) g/dL Multi-Disciplinary Progress Notes: Multi-Disciplinary Progress Notes 08/05/18 13:51 Case Management Note by Crystal Tomlin PER EM PATIENT'S PRIMARY RN, SHE NOTIFIED DR. RUFF THAT DR. Ayla WALTER IS OUT OF TOWN AND THAT DR. MONTE IS COVERING AND IF PULMONOLOGY CONSULT WAS NEEDED PATIENT WOULD NEED TO BE TRANSFERRED. S/W SHANNA AT THIS TIME SHE STATED [facility] WAS FINE WITH PATIENT JUST STAYING HERE AND SEEING A JOSE ANGEL WHEN HE RETURNS OR AN OUTPT Initialized on 08/05/18 13:51 - END OF NOTE 08/05/18 13:10 (created 08/05/18 13:59) Case Management Note by Crystal Tomlin HERE FROM [facility] TO REVIEW CHART. Initialized on 08/05/18 13:59 - END OF NOTE 08/05/18 10:54 Case Management Note by Crystal Tomlin MEDICARE IMPORTANT MESSAGE WAS SIGNED AND PLACED IN CHART Initialized on 08/05/18 10:54 - END OF NOTE 08/05/18 10:50 Case Management Note by Crystal Tomlin PATIENT CURRENTLY ON BIPAP, WAITING ON PULMONOLOGY CONSULT. STILL SOB. S/W PATIENT AGAIN ABOUT WHAT FACILITY SHE WOULD LIKE TO GO TO IF SHE NEEDS REHAB AT TIME OF DC. SHE STATED IF SHE WENT TO A FACILITY, HER FIRST CHOICE WOULD BE [facility]. S/W YUMIKO AND NOTIFIED HER OF PATIENT'S CURRENT CONDITION AND FAXED A FACESHEET SO THEY COULD GO AHEAD AND RUN THE INSURANCE BEFORE THE HOLIDAYS IN CASE THE PATIENT IS READY FOR DC BEFORE 08/10. WILL STILL NEED AN ACTUAL EVAL BY [facility] CLOSER TO TIME OF DC. Initialized on 08/05/18 10:50 - END OF NOTE Assessment/Plan (1) COPD exacerbation Current Visit: Yes Status: Acute Assessment & Plan: will change the solumedrol 80 q6h to prednisone 60 daily continue nebs and O2 continue ceftriaxone and azithromycin repeat labs in am ANC today i 888 which isn't much different relatively stable counts no evidence of blood loss she is on xarelto chronically Dr. Ruff discussed with her sample maker hand will keep her on this for now monitor for any blood loss she is on ppi Code(s): J44.1 - CHRONIC OBSTRUCTIVE PULMONARY DISEASE W (ACUTE) EXACERBATION (2) End stage chronic obstructive pulmonary disease Current Visit: Yes Status: Acute Code(s): J44.9 - CHRONIC OBSTRUCTIVE PULMONARY DISEASE, UNSPECIFIED (3) Pancytopenia Current Visit: Yes Status: Acute Onset Date: ~08/02/18 Code(s): D61.818 - OTHER PANCYTOPENIA (4) Atrial fibrillation Current Visit: Yes Status: Chronic Code(s): I48.91 - UNSPECIFIED ATRIAL FIBRILLATION
[2018-08-06] MEDS: Zithromax 500 MG/ 250 ML NaCl Premix 500 MG/250 ML IVPB IV SCH (10:15)
[2018-08-06] MEDS: ROCEPHIN 1 Gm-D5w 50 ml Bag** 1 G/50 ML IVPB IV SCH (10:15)
[2018-08-06] MEDS: DELTASONE 20 MG PO SCH (10:16)
[2018-08-06] MEDS: Lasix 40 MG PO SCH ×2 (10:16→16:44)
[2018-08-06] MEDS: Protonix 40MG Tablet PO SCH (10:16)
[2018-08-06] MEDS: COREG 12.5 MG PO SCH ×2 (10:16→21:25)
[2018-08-06] MEDS: XARELTO 10 MG TABLET PO SCH (10:16)
[2018-08-06] MEDS: Klor Con 10 MEQ PO SCH ×2 (10:16→21:25)
[2018-08-06] MEDS: Colace 100 MG PO SCH ×2 (10:19→21:25)
[2018-08-06] MEDS: KENALOG 0.1% CREAM 15 GM TP SCH (10:42)
[2018-08-06] MEDS: ZOCOR 20MG PO SCH (21:25)
[2018-08-07] MEDS: DUONEB 0.5-3 MG/3 ml Neb IH SCH ×5 (03:41→19:21)
[2018-08-07 06:25] LABS: Basophil (Absolute #) 0 (0-0.4); Eosinophil (Absolute #) 0 (0-0.5); Granulocyte Absolute (ANC) 1.48 (1.4-6.9); Granulocytes % 73.6 % (36.0-66.0); Hematocrit 29.8 % (35-47); Hemoglobin 8.9 gm/dl (12.0-16.0); Lymphocyte (Absolute #) 0.35 (1.0-4.6); Lymphocytes % 17.4 % (24.0-44.0); Mean Cell Volume 98.3 fl (78-100); Mean Corpuscular Hgb Concent. 29.9 g/dl (32-36); Mean Platelet Volume 12.1 fl (6-9.5); Monocyte (Absolute #) 0.18 (0.0-1.3); Platelet Count 111 K/mm3 (150-450); Red Blood Count 3.03 M/mm3 (4.1-5.4); Red Cell Distribution Width 15.7 % (11.5-14.0)
[2018-08-07 06:26] LABS: BLOOD UREA NITROGEN 14 mg/dL (7-17); CHLORIDE 92 mmol/L (98-107); Calcium 8.6 mg/dL (8.4-10.2); Creatinine 1 0.56 mg/dL (0.52-1.04); Glucose 122 mg/dL (74-106); Potassium 3.8 mmol/L (3.5-5.1); SODIUM 137 mmol/L (137-145)
[2018-08-07 06:31] LABS: Mean Corpuscular Hemoglobin 29.3 pg (26-32)
[2018-08-07 06:35] LABS: Carbon Dioxide 41 mmol/L (22-30)
[2018-08-07 06:37] LABS: ANION GAP 27.8 MEQ/L (5-15)
[2018-08-07] MEDS: ADVAIR 250-50 DISKUS 14 DOSE IH SCH ×2 (06:44→19:23)
[2018-08-07 08:36] LABS: Slide Review 1 YES
--- NOTE | 2018-08-07 09:27 | PCM.NOTE ---
Date and Time: 08/07/18922 Subjective Assessment: she did much better yesterday with her stamina she is now getting herself up she states and walked in the halls twice. with help. she is highly motivated to go home with home health and is feeling better. Objective Exam General Appearance: no apparent distress Neurologic Exam: alert, oriented x 3, cooperative Skin Exam: warm, dry Ears, Nose, Throat Exam: moist mucous membranes Neck Exam: non-tender, supple Respiratory Exam: prolonged expirations, No crackles/rales, No rhonchi, No wheezing Cardiovascular Exam: regular rate/rhythm, normal peripheral pulses, No edema Extremity Exam: normal inspection, No calf tenderness, No pedal edema OBJECTIVE DATA Vital Signs: Vital Signs - 24 hr Temp Pulse Resp BP Pulse Ox 08/07/18 07:04 97.8 F 84 20 156/68 98 08/07/18 06:57 84 18 98 08/07/18 04:05 98.1 F 60 18 150/66 99 08/07/18 03:41 66 20 99 08/06/18 23:53 98.3 F 62 20 136/60 99 08/06/18 23:21 62 18 99 08/06/18 20:00 97.7 F 63 24 150/67 96 08/06/18 19:53 63 24 96 08/06/18 16:00 66 18 149/65 95 08/06/18 14:58 64 18 98 08/06/18 12:00 97.7 F 69 18 128/62 95 08/06/18 11:21 64 18 97 Oxygen-Last 24 hours O2 Percentage 6 Liters = 44% O2 Percentage 6 Liters = 44% O2 Percentage 6 Liters = 44% O2 Percentage 6 Liters = 44% O2 Percentage 6 Liters = 44% O2 Percentage 6 Liters = 44% Pain Assessment - Last Documented Pain Intensity 0 Pain Scale Used 0-10 Pain Scale Intake and Output: Intake & Output 08/04/18 08/05/18 08/06/18 08/07/18 11:59 11:59 11:59 11:59 Intake Total 1690 2146 3103 1380 Output Total 2150 3200 4350 4300 Qhzujla -902 -2427 -7926 -2200 Weight 77.9 kg Lab Results: Lab Results-Last 24 Hours 08/07/18 08/07/18 Range/Units 05:35 05:35 WBC 2.0 L (4.0-10.5) K/mm3 RBC 3.03 L (4.1-5.4) M/mm3 Hgb 8.9 L (12.0-16.0) gm/dl Hct 29.8 L (35-47) % MCV 98.3 (78-100) fl MCH 29.3 (26-32) pg MCHC 29.9 L (32-36) g/dl RDW 15.7 H (11.5-14.0) % Plt Count 111 L (150-450) K/mm3 MPV 12.1 H (6-9.5) fl Gran % 73.6 H (36.0-66.0) % Eos # (Auto) 0 (0-0.5) Absolute Lymphs (auto) 0.35 L (1.0-4.6) Absolute Monos (auto) 0.18 (0.0-1.3) Lymphocytes % 17.4 L (24.0-44.0) % Monocytes % 9.0 (0.0-12.0) % Eosinophils % 0.0 (0.00-5.0) % Basophils % 0.0 (0.0-0.4) % Absolute Granulocytes 1.48 (1.4-6.9) Basophils # 0 (0-0.4) Sodium 137 (137-145) mmol/L Potassium 3.8 (3.5-5.1) mmol/L Chloride 92 L (98-107) mmol/L Carbon Dioxide 41 H (22-30) mmol/L Anion Gap 27.8 H (5-15) MEQ/L BUN 14 (7-17) mg/dL Creatinine 0.56 (0.52-1.04) mg/dL Estimated GFR > 60.0 ML/MIN Glucose 122 H (74-106) mg/dL Calcium 8.6 (8.4-10.2) mg/dL Slides for Path Review YES Multi-Disciplinary Progress Notes: Multi-Disciplinary Progress Notes 08/06/18 21:17 Nutrition Note by Liz Montelongo F/u note: Cardiac diet con't with 75% po intake. Labs 08/06 = Na 133, glu 189 , alb 3.1, hgb 8.7, hct 29.0., weight stable, +fluid balance 80 mls. Goal met and ongoing. Recommend to con't with cardiac diet. Will con't to monitor and f /u prn. Latanya JESSICA Initialized on 08/06/18 21:17 - END OF NOTE Assessment/Plan (1) COPD exacerbation Current Visit: Yes Status: Acute Assessment & Plan: continue the prednisone at 60 mg daily improved wbc that is chronical and following outpatient with hematology in [place] she will need steroid taper at discharge she is on antibiotics and improving from the copd exacerbation will d/c modi catheter she seems to have significant improvement in strength over the last 2 days. her copd is still end stage chronically on 6L nc O2 she is highly motivated to discharge tomorrow with home health if her strength continues to improve as it has over the last 2 days. Code(s): J44.1 - CHRONIC OBSTRUCTIVE PULMONARY DISEASE W (ACUTE) EXACERBATION (2) End stage chronic obstructive pulmonary disease Current Visit: Yes Status: Acute Code(s): J44.9 - CHRONIC OBSTRUCTIVE PULMONARY DISEASE, UNSPECIFIED (3) Pancytopenia Current Visit: Yes Status: Acute Onset Date: ~08/02/18 Code(s): D61.818 - OTHER PANCYTOPENIA (4) Atrial fibrillation Current Visit: Yes Status: Chronic Code(s): I48.91 - UNSPECIFIED ATRIAL FIBRILLATION
[2018-08-07] MEDS: ROCEPHIN 1 Gm-D5w 50 ml Bag** 1 G/50 ML IVPB IV SCH (09:51)
[2018-08-07] MEDS: Colace 100 MG PO SCH ×2 (09:52→22:05)
[2018-08-07] MEDS: Klor Con 10 MEQ PO SCH ×2 (09:52→22:05)
[2018-08-07] MEDS: Lasix 40 MG PO SCH ×2 (09:52→16:47)
[2018-08-07] MEDS: DELTASONE 20 MG PO SCH (09:52)
[2018-08-07] MEDS: COREG 12.5 MG PO SCH ×2 (09:53→22:05)
[2018-08-07] MEDS: XARELTO 10 MG TABLET PO SCH (09:53)
[2018-08-07] MEDS: Protonix 40MG Tablet PO SCH (09:53)
[2018-08-07] MEDS: Zithromax 500 MG/ 250 ML NaCl Premix 500 MG/250 ML IVPB IV SCH (09:53)
[2018-08-07] MEDS: KENALOG 0.1% CREAM 15 GM TP SCH (09:53)
[2018-08-07] MEDS: ZOCOR 20MG PO SCH (22:05)
[2018-08-08 06:26] LABS: BLOOD UREA NITROGEN 16 mg/dL (7-17); CHLORIDE 89 mmol/L (98-107); Calcium 8.6 mg/dL (8.4-10.2); Creatinine 1 0.61 mg/dL (0.52-1.04); Glucose 93 mg/dL (74-106); Potassium 3.7 mmol/L (3.5-5.1); SODIUM 137 mmol/L (137-145)
[2018-08-08 06:35] LABS: Hematocrit 31.8 % (35-47); Hemoglobin 9.4 gm/dl (12.0-16.0); Mean Cell Volume 98.1 fl (78-100); Mean Corpuscular Hgb Concent. 29.6 g/dl (32-36); Mean Platelet Volume 11.3 fl (6-9.5); Platelet Count 121 K/mm3 (150-450); Red Blood Count 3.24 M/mm3 (4.1-5.4); Red Cell Distribution Width 15.7 % (11.5-14.0)
[2018-08-08 06:37] LABS: Carbon Dioxide 41 mmol/L (22-30)
[2018-08-08 06:38] LABS: ANION GAP 10.7 MEQ/L (5-15)
[2018-08-08 06:41] LABS: White Blood Count 1.7 K/mm3 (4.0-10.5)
[2018-08-08 07:37] LABS: ABSOLUTE NEUTROPHILS 1.11 (1.4-6.9); Lymphocytes 25 % (24-44); Monocyte 10 % (0.0-12.0); Neutrophils 65 % (36.0-66.0); Platelet Estimate DECREASED (NORMAL); Total Cells Counted 100
[2018-08-08 07:38] LABS: ANISOCYTOSIS 1+; Hypochromia 1+
[2018-08-08 08:02] VITALS: BP 143/89
[2018-08-08] MEDS: Protonix 40MG Tablet PO SCH (09:00)
[2018-08-08] MEDS: Colace 100 MG PO SCH (09:00)
[2018-08-08] MEDS: Zithromax 500 MG/ 250 ML NaCl Premix 500 MG/250 ML IVPB IV SCH (09:00)
[2018-08-08] MEDS: ROCEPHIN 1 Gm-D5w 50 ml Bag** 1 G/50 ML IVPB IV SCH (09:00)
[2018-08-08] MEDS: Lasix 40 MG PO SCH (09:00)
[2018-08-08] MEDS: Klor Con 10 MEQ PO SCH (09:00)
[2018-08-08] MEDS: DELTASONE 20 MG PO SCH (09:00)
[2018-08-08] MEDS: COREG 12.5 MG PO SCH (09:00)
[2018-08-08] MEDS: XARELTO 10 MG TABLET PO SCH (09:00)
[2018-08-08] MEDS: KENALOG 0.1% CREAM 15 GM TP SCH (09:02)
--- NOTE | 2018-08-08 09:42 | PCM.DS ---
Discharge Summary Date of Admission: 08/02/18 15:07 Admitting Physician: OTF SOLIZ Consults: Consults on Case 08/04/18 08:00 Consult Hematology/Onocology ROUTINE 08/05/18 08:28 Consult Pulmonology ROUTINE Primary Care Provider: OTF SOLIZ Allergies Allergies iron Adverse Reaction (Verified 01/07/17 16:28) Hospital Summary - Hospital Course Hospital Course: Pt is a 78 yo female pt of Dr. Soliz with end stage COPD and rectal cancer within the past 2 yrs (tx with radiation and chemo) who was found down by her son at home. She typically wears 6L O2 per NC 24hrs a day but was found slumped in her chair with her O2 off, unresponsive, and when EMS came O2 sat was 78%. she was brought to ER, improved with nebulizer tx. CXR was non acute. CT head non acute, mastoid inflammation. She improved on IV rocephin and zithromax wiht IV solumedrol (changed to PO prednisone 2d ago). CT abd/ pelvis with pancreatitis, lg gallstone, new L renal cyst, splenomegaly, stable diverticulosis, emphysema, degnerative changes in the spine, L S2 perineural cyst. Pt had 2 units PRBC in transfusion on hospital day #1. She is on xarelto, which was continued, and hgb has been stable since admission. Hgb 9.4 this morning. She has known pancytopenia; Dr. Soliz consulted with Dr. Nj, heme-onc, who feels that this is largely nutritional since pt's last chemo was 1 yr ago. Pt left her oncologist in [place] with no scheduled follow up, so it sounds like Dr. Soliz scheduled some f/u this week. Her WBC are 1.7 this morning and she has been around 2.0 since her admission (on reverse isolation here). Pt was found to have pancreatitis on CT with elevated lipase; no recheck to lipase since admission so will recheck lipase and hepatic function panel before discharge. She is denying any abd pain at this time. She was up walking 200 feet x 2 yesterday and did well per pt and per her son, at bedside. They are ready for her to d/c home with home health today. - Vitals & Intake/Output Vital Signs: Vital Signs Temperature 97.7 F 08/08/18 08:00 Pulse Rate 63 08/08/18 08:00 Respiratory Rate 18 08/08/18 08:00 Blood Pressure 143/89 08/08/18 08:00 O2 Sat by Pulse Oximetry 100 08/08/18 08:00 Oxygen-Last Documented O2 Percentage 6 Liters = 44% Intake & Output: Intake & Output 08/05/18 08/06/18 08/07/18 08/08/18 11:59 11:59 11:59 11:59 Intake Total 2146 3103 1380 760 Output Total 3200 4350 4300 2800 Balance -1054 -1247 -2920 -2040 Weight 77.9 kg - Lab Result Diagrams: 08/08/18 05:30 08/08/18 05:30 Lab Results-Last 24 Hrs: Lab Results-Last 24 Hours 08/08/18 08/08/18 Range/Units 05:30 05:30 WBC 1.7 L* (4.0-10.5) K/mm3 RBC 3.24 L (4.1-5.4) M/mm3 Hgb 9.4 L (12.0-16.0) gm/dl Hct 31.8 L (35-47) % MCV 98.1 (78-100) fl MCH 29.0 (26-32) pg MCHC 29.6 L (32-36) g/dl RDW 15.7 H (11.5-14.0) % Plt Count 121 L (150-450) K/mm3 MPV 11.3 H (6-9.5) fl Absolute Neutrophils 1.11 (1.4-6.9) Segmented Neutrophils 65 (36.0-66.0) % Lymphocytes (Manual) 25 (24-44) % Monocytes (Manual) 10 (0.0-12.0) % Hypochromia 1+ Platelet Estimate DECREASED (NORMAL) Anisocytosis 1+ Sodium 137 (137-145) mmol/L Potassium 3.7 (3.5-5.1) mmol/L Chloride 89 L (98-107) mmol/L Carbon Dioxide 41 H (22-30) mmol/L Anion Gap 10.7 (5-15) MEQ/L BUN 16 (7-17) mg/dL Creatinine 0.61 (0.52-1.04) mg/dL Estimated GFR > 60.0 ML/MIN Glucose 93 (74-106) mg/dL Calcium 8.6 (8.4-10.2) mg/dL Slides for Path Review [employer] Micro Results-Entire Visit: Microbiology 08/02/18 12:50 Blood Culture Gram Stain - Final Blood Not Reportable Blood Culture - Final NO GROWTH 08/02/18 11:30 Blood Culture Gram Stain - Final Blood Not Reportable Blood Culture - Final NO GROWTH 08/02/18 11:51 Urine Culture - Final Clean Catch Midstream NO GROWTH - Procedures and Test Procedures and Tests throughout Hospitalization: Therapy Orders & Screens 08/02/18 15:08 PT Eval & Treat (MD Order) ROUTINE Reason for Eval:: strength and rom Diagnosis: weakness BiPap/CPAP ROUTINE Comment: EKG REPEAT IN AM Comment: Respiratory Therapy Consult ROUTINE Comment: Reason For Exam: 08/02/18 17:10 RT Screen per Nursing Assess ONCE Comment: Protocol Order Physician Instructions: Greater than 3 points order RT Admission Screen Reason For Exam: Triggered on Admission Diagnosis: Pancytopenia; CHF Diagnosis: Pancytopenia; CHF Pneumonia: No Home O2: Yes Asthma: No CHF: Yes Home CPAP/BIPAP: No Home Nebs/MDI: Yes Total Points: 13 08/02/18 20:27 Oxygen NASAL CANNULA 2 lpm Comment: Diagnosis: Pancytopenia; CHF 08/02/18 21:13 Oxygen NASAL CANNULA 6 lpm Comment: Diagnosis: Pancytopenia; CHF 08/03/18 06:50 Respiratory Therapy Assessment DAILY Comment: Diagnosis: Pancytopenia; CHF 08/03/18 07:08 Peak Expiratory Flow Rate ONCE Comment: Reason For Exam: Diagnosis: Pancytopenia; CHF 08/04/18 07:00 Respiratory MDI BID Comment: ADVAIR 250/50 BID Diagnosis: Pancytopenia; CHF Discharge Exam General Appearance: no apparent distress, alert Neurologic Exam: oriented x 3, cooperative Skin Exam: normal color, warm, dry, No rash Respiratory Exam: lungs clear, No normal breath sounds (distant), No crackles/ rales, No rhonchi, No wheezing Cardiovascular Exam: regular rate/rhythm, No normal heart sounds (distant) Gastrointestinal/Abdomen Exam: soft, normal bowel sounds, No tenderness, No distention, No mass, No guarding, No rebound Extremity Exam: normal inspection, swelling (1+ LE edema bilat) Final Diagnosis/Problem List - Final Discharge Diagnosis/Problem (1) COPD exacerbation Current Visit: Yes Status: Acute Assessment & Plan: Much better; on rocephin and zithromax day #7 (d/c'd zithromax today). Will send home on 7d of po cefdinir. (2) End stage chronic obstructive pulmonary disease Current Visit: Yes Status: Acute Assessment & Plan: on 6L NC chronically. Home with home health. (3) Pancytopenia Current Visit: Yes Status: Chronic Onset Date: ~08/02/18 Assessment & Plan: f/u with Dr. Nj and Dr. Soliz. (4) Rectal carcinoma Current Visit: Yes Status: Chronic Assessment & Plan: f/u with Dr. Nj. No findings on CT abd/pelvis but apparently has had a scan with increased activity in rectal area that was not followed up on last year. She does c/o either rust colored soft stools or stools of small caliber that are dark. (5) Atrial fibrillation Current Visit: Yes Status: Chronic Assessment & Plan: sounds in reg rhythm to me today but heart sounds are distant. (6) Anemia Current Visit: No Status: Chronic Assessment & Plan: stable currently. (7) Pancreatitis Current Visit: Yes Status: Acute Assessment & Plan: will recheck AST, ALT, and lipase before discharge. - Discharge Disposition: Home, Self-Care Condition: Stable Prescriptions: New Cefdinir 300 mg PO BID #14 capsule Prednisone 20 mg [Deltasone 20 mg] 20 mg PO DAILY #30 tablet Continue Furosemide 40 mg [Lasix 40 MG] 40 mg PO BID Atorvastatin Calcium [Lipitor] 20 mg PO HS Omeprazole 40 mg PO DAILY Fluticasone/Vilanterol [Breo Ellipta 100-25 Mcg INH] 1 each IH DAILY Carvedilol 6.25 mg [Coreg 6.25 MG] 12.5 mg PO BID Potassium Chloride 10 Meq Tab* [Klor Con 10 MEQ] 10 meq PO BID Halobetasol Propionate 1 mg EXT QAM Rivaroxaban [Xarelto] 1 tab PO DAILY Instructions: Heart Failure, Adult (DC), Exacerbation of COPD (DC) Additional Instructions: JOSSIE WILL CALL YOU TO ARRANGE YOUR FIRST VISIT. YOU MAY REACH THEM AT [phone] FOR ANY NEEDS. Follow up with: AJ NJ MD [NON-STAFF PHY W/O PRIVILEGES] - 1 Week Forms: Discharge Instructions
[2018-08-08 10:10] LABS: ALBUMIN 3.4 g/dL (3.5-5.0); BILIRUBIN,TOTAL 0.5 mg/dL (0.2-1.3); Direct Bilirubin 0.5 mg/dL (0.0-0.4); Total Protein 6.5 g/dL (6.3-8.2)
[2018-08-08] MEDS: DUONEB 0.5-3 MG/3 ml Neb IH SCH (10:26)
[2018-08-08] MEDS: ADVAIR 250-50 DISKUS 14 DOSE IH SCH (10:27)
[2018-08-08 10:51] VITALS: PULSE 93; O2SAT 99
== END 2018-08-08 12:30 | disposition home health service (06) | DRG 190 ==
LOC: ED 11:16 → ICU 15:07 → MED SURG 08-03 09:06
PROVIDERS: ADMIT Family Medicine; ATTEND Family Medicine
DX: J44.1 Chronic obstructive pulmonary disease with (acute) exacerbation (principal); K85.90 Acute pancreatitis without necrosis or infection, unspecified; R41.82 Altered mental status, unspecified; C20 Malignant neoplasm of rectum; J96.11 Chronic respiratory failure with hypoxia; I48.91 Unspecified atrial fibrillation; D64.9 Anemia, unspecified; D61.818 Other pancytopenia; E78.5 Hyperlipidemia, unspecified; I50.9 Heart failure, unspecified; Z95.0 Presence of cardiac pacemaker; R06.03 Acute respiratory distress; Z95.810 Presence of automatic (implantable) cardiac defibrillator; N80.9 Endometriosis, unspecified; Z72.0 Tobacco use; Z79.899 Other long term (current) drug therapy; I10 Essential (primary) hypertension; I25.2 Old myocardial infarction
CPT/HCPCS: 36000; 36415; 36430; 36600; 51702; 70450; 71045; 74177; 80048; 80053; 80076; 81001; 82150; 82375; 82607; 82728; 82746; 82803; 83540; 83605; 83690; 83880; 84484; 85014; 85018; 85025; 85045; 85610; 86850; 86900; 86901; 86922; 87040; 87086; 87631; 93005; 93041; 94002; 94003; 94150; 94640; 94760; 94762; 97161; 99285; P9612; J0456; J0696; J1940; J2930; J7609; A9270-GY

== ENCOUNTER 2019-09-27 12:32 | Observation (INO) | payer MEDICARE ==
[2019-09-27] MEDS ORDERED: Sodium Chloride 0.9% 1000 ML 1,000 ML IV STA (12:48)
--- NOTE | 2019-09-27 13:09 | ERPHSYRPT ---
- History of Present Illness Time Seen by Provider: 09/27/19 12:50 Source: patient Exam Limitations: no limitations Physician History: Patient is a 79-year-old female who presents to our ED via EMS. Patient has a history of colon cancer. Cancer was diagnosed approximately 3 weeks ago. She is currently not receiving chemotherapy or radiation. Patient states that she was at home. She acutely felt weak and sat on the floor. When home health presented to evaluate patient patient was sitting on the floor. Ambulance was called. No trauma. Patient has been experiencing diarrhea for the past several weeks. She is also believed to possibly have a rectovaginal fistula. Patient states her whole body feels weak. No focal or lateralizing symptoms. Symptoms are constant. No specific worsening or improving factors. Patient lives with her son. However her son is not currently at the bedside. Patient voices no other complaints at this time. Timing/Duration: today Severity: moderate Modifying Factors: Improves With: nothing Associated Symptoms: No nausea, No vomiting, No shortness of breath, No heartburn, No diaphoresis, No cough, No chills, No chest pain, No fever Allergies/Adverse Reactions: sulfasalazine Allergy (Severe, Verified 09/27/19 13:35) metronidazole [From Flagyl] Adverse Reaction (Severe, Verified 09/27/19 12:57) Vomiting iron Adverse Reaction (Verified 09/27/19 12:56) Home Medications: Atorvastatin Calcium [Lipitor] 20 mg PO HS 02/28/13 [History] Furosemide 40 mg [Lasix 40 MG] 40 mg PO BID 02/28/13 [History] Carvedilol 6.25 mg [Coreg 6.25 MG] 12.5 mg PO BID 01/07/17 [History] Fluticasone/Vilanterol [Breo Ellipta 100-25 Mcg INH] 1 each IH DAILY 01/07/17 [ History] Omeprazole 40 mg PO DAILY 01/07/17 [History] Potassium Chloride 10 Meq Tab* [Klor Con 10 MEQ] 10 meq PO BID 01/07/17 [ History] Rivaroxaban [Xarelto] 1 tab PO DAILY 08/02/18 [History] Albuterol 2.5 mg/3 ml Neb [Proventil 2.5 mg/3 ml Neb] 2.5 mg IH Q4HPRN PRN 11/25/18 [History] Ipratropium/Albuterol Sulfate [Combivent Inhaler] 14.7 gm IH QID 11/25/18 [ History] Ipratropium/Albuterol Sulfate [Iprat-Albut 0.5-3(2.5) mg/3 ml] 3 ml IH DAILY 08/03 [History] Hx Tetanus, Diphtheria Vaccination/Date Given: No Hx Influenza Vaccination/Date Given: Yes Hx Pneumococcal Vaccination/Date Given: Yes - Review of Systems Constitutional: No Fever, No Chills Eyes: No Symptoms Ears, Nose, & Throat: No Symptoms Respiratory: No Symptoms, No Cough, No Dyspnea Cardiac: No Symptoms, No Chest Pain, No Edema, No Syncope Abdominal/Gastrointestinal: Diarrhea, No Abdominal Pain, No Nausea, No Vomiting Genitourinary Symptoms: No Dysuria Musculoskeletal: No Symptoms, No Back Pain, No Neck Pain Skin: No Symptoms, No Rash Neurological: No Symptoms, Other, No Dizziness, No Focal Weakness, No Sensory Changes Psychological: No Symptoms Endocrine: No Symptoms All Other Systems: Reviewed and Negative - Past Medical History Pertinent Past Medical History: Yes Neurological History: No Pertinent History ENT History: Cataracts Cardiac History: Arrhythmia, Myocardial Infarction ([place]), Other Respiratory History: Emphysema Endocrine Medical History: No Pertinent History Musculoskeletal History: No Pertinent History GI Medical History: No Pertinent History History: No Pertinent History Psycho-Social History: No Pertinent History Female Reproductive Disorders: Endometriosis Other Medical History: APICAL THROMBUS, 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 PACEMAKER/DEFIBRILLATOR VIA DR ECHEVERRIA. 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 IN JUN 2012 WAS ON THE VENTILATOR FOR 11 DAYS. - Past Surgical History Past Surgical History: Yes Neuro Surgical History: No Pertinent History Cardiac: No Pertinent History, Internal Defibrillator, Pacemaker Respiratory: No Pertinent History Gastrointestinal: No Pertinent History Genitourinary: No Pertinent History Musculoskeletal: No Pertinent History Female Surgical History: Hysterectomy Other Surgical History: cataract surgery - Social History Smoking Status: Former smoker How long have you smoked: 50 years Exposure to second hand smoke: (unknown) Drug Use: none Patient Lives Alone: No - Nursing Vital Signs Nursing Vital Signs: Initial Vital Signs Blood Pressure 128/50 09/27/19 12:34 Pain Scale Pain Intensity 2 - Physical Exam General Appearance: no apparent distress, alert, thin, other (Patient appears pale) Eye Exam: PERRL/EOMI, eyes nml inspection Ears, Nose, Throat Exam: normal ENT inspection, TMs normal, moist mucous membranes, dry mucous membranes, No pharynx normal Neck Exam: normal inspection, non-tender, supple, full range of motion Respiratory Exam: normal breath sounds, lungs clear, No respiratory distress Cardiovascular Exam: regular rate/rhythm, normal heart sounds, normal peripheral pulses Gastrointestinal/Abdomen Exam: soft, normal bowel sounds, No tenderness, No mass Pelvic Exam: not done Rectal Exam: mass Back Exam: normal inspection, normal range of motion, No CVA tenderness, No vertebral tenderness Extremity Exam: normal inspection, normal range of motion, pelvis stable Neurologic Exam: alert, oriented x 3, cooperative, normal mood/affect, nml cerebellar function, nml station & gait, sensation nml, No motor deficits Skin Exam: normal color, warm, dry, No rash Lymphatic Exam: No adenopathy SpO2 Interpretation: normal SpO2: 99 O2 Delivery: Room Air - Course Nursing assessment & vital signs reviewed: Yes EKG Interpreted by Me: RATE, Other (Paced rhythm) - Radiology Exams Chest X-ray Interpretation: Teleradiologist Report (osteoporosis, arthritis, scoliosis , no acute process) - CT Exams Head CT Interpretation: Tele-radiologist Report (Remote left basal ganglia lacunar infarct opacification of the right mastoid air cells no acute intracranial hemorrhage) Abdomen/Pelvis CT Interpretation: Tele-radiologist Report (CT abdomen pelvis shows changes consistent with GERD, a new rectovaginal fistula, splenomegaly, gallstone, renal cyst, osteopenia, spondylolisthesis, scoliosis, S2 perineural cyst.) Ordered Tests: Active Orders 24 hr Category Date Time Status Plate Straightener STAT Care 09/27/19 12:50 Active EKG-ER Only STAT Care 09/27/19 12:48 Active Harrell [Catheter-Melfa Harrell] STAT Care 09/27/19 13:12 Active IV Insertion STAT Care 09/27/19 12:48 Active Oxygen-ED Only Nasal Cannula 6 lpm Care 09/27/19 13:12 Active Pulse Oximetry (ED) STAT Care 09/27/19 12:48 Active ABDOMEN AND PELVIS W CONTRAST [CT] Stat Exams 09/27/19 12:55 Completed CHEST 1 VIEW (PORTABLE) Stat Exams 09/27/19 12:50 Completed HEAD WITHOUT CONTRAST [CT] Stat Exams 09/27/19 12:50 Completed CBC W DIFF Stat Lab 09/27/19 13:05 Completed CK-Creatinine Phosphokinase Stat Lab 09/27/19 13:05 Completed CMP Stat Lab 09/27/19 13:05 Completed CULTURE,URINE Stat Lab 09/27/19 13:00 Received MAGNESIUM Stat Lab 09/27/19 13:05 Completed Occult Blood, Other Screening Stat Lab 09/27/19 13:00 Completed UA W/RFX UR CULTURE Stat Lab 09/27/19 13:00 Completed Medication Summary Discontinued Medications Generic Name Dose Route Start Last Admin Trade Name Freq PRN Reason Stop Dose Admin Sodium Chloride 1,000 mls @ 999 mls/hr 09/27/19 12:48 09/27/19 14:21 Sodium Chloride 0.9% 1000 Ml IV 09/27/19 13:48 Infused .Q1H1M STA Infusion Sodium Chloride Confirm 09/27/19 13:14 Sodium Chloride 0.9% 1000 Ml Administered 09/27/19 13:15 Dose 1,000 mls @ ud .ROUTE .STK-MED ONE Lab/Rad Data: Laboratory Result Diagrams 09/27/19 13:05 09/27/19 13:05 Laboratory Results 09/27/19 09/27/19 09/27/19 Range/Units 13:05 13:05 13:05 WBC 4.7 (4.0-10.5) K/mm3 RBC 2.91 L (4.1-5.4) M/mm3 Hgb 8.2 L (12.0-16.0) gm/dl Hct 27.7 L (35-47) % MCV 95.2 (78-100) fl MCH 28.2 (26-32) pg MCHC 29.6 L (32-36) g/dl RDW 14.6 H (11.5-14.0) % Plt Count 188 (150-450) K/mm3 MPV 10.1 (7.5-11.0) fl Gran % 85.9 H (36.0-66.0) % Eos # (Auto) 0.05 (0-0.5) Absolute Lymphs (auto) 0.36 L (1.0-4.6) Absolute Monos (auto) 0.24 (0.0-1.3) Lymphocytes % 7.7 L (24.0-44.0) % Monocytes % 5.1 (0.0-12.0) % Eosinophils % 1.1 (0.00-5.0) % Basophils % 0.2 (0.0-0.4) % Absolute Granulocytes 4.04 (1.4-6.9) Basophils # 0.01 (0-0.4) Sodium 136 L (137-145) mmol/L Potassium 3.7 (3.5-5.1) mmol/L Chloride 99 (98-107) mmol/L Carbon Dioxide 31 H (22-30) mmol/L Anion Gap 9.5 (5-15) MEQ/L BUN 11 (7-17) mg/dL Creatinine 0.64 (0.52-1.04) mg/dL Estimated GFR > 60.0 ML/MIN Glucose 115 H (74-106) mg/dL Calcium 9.3 (8.4-10.2) mg/dL Magnesium 1.7 (1.6-2.3) mg/dL Total Bilirubin 0.50 (0.2-1.3) mg/dL AST 14 (14-36) U/L ALT 8 (0-35) U/L Alkaline Phosphatase 104 (38-126) U/L Creatine Kinase 31 (30-135) U/L Serum Total Protein 7.0 (6.3-8.2) g/dL Albumin 3.6 (3.5-5.0) g/dL Urine Color (YELLOW) Urine Appearance (CLEAR) Urine pH (5-6) Ur Specific [place] (1.005-1.025) Urine Protein (Negative) Urine Ketones (NEGATIVE) Urine Blood (0-5) Misael/ul Urine Nitrite (NEGATIVE) Urine Bilirubin (NEGATIVE) Urine Urobilinogen (0-1) mg/dL Ur Leukocyte Esterase (NEGATIVE) Urine WBC (Auto) (0-5) /HPF Urine RBC (Auto) (0-2) /HPF U Hyaline Cast (Auto) (0-2) /LPF U Epithel Cells (Auto) (FEW) /HPF Urine Bacteria (Auto) (NEGATIVE) /HPF Urine Mucus (Auto) (NEGATIVE) /HPF Urine Culture Reflexed (NO) Urine Glucose (NEGATIVE) mg/dL Stool Occult Blood (Negative) 09/27/19 09/27/19 Range/Units 13:00 13:00 WBC (4.0-10.5) K/mm3 RBC (4.1-5.4) M/mm3 Hgb (12.0-16.0) gm/dl Hct (35-47) % MCV (78-100) fl MCH (26-32) pg MCHC (32-36) g/dl RDW (11.5-14.0) % Plt Count (150-450) K/mm3 MPV (7.5-11.0) fl Gran % (36.0-66.0) % Eos # (Auto) (0-0.5) Absolute Lymphs (auto) (1.0-4.6) Absolute Monos (auto) (0.0-1.3) Lymphocytes % (24.0-44.0) % Monocytes % (0.0-12.0) % Eosinophils % (0.00-5.0) % Basophils % (0.0-0.4) % Absolute Granulocytes (1.4-6.9) Basophils # (0-0.4) Sodium (137-145) mmol/L Potassium (3.5-5.1) mmol/L Chloride (98-107) mmol/L Carbon Dioxide (22-30) mmol/L Anion Gap (5-15) MEQ/L BUN (7-17) mg/dL Creatinine (0.52-1.04) mg/dL Estimated GFR ML/MIN Glucose (74-106) mg/dL Calcium (8.4-10.2) mg/dL Magnesium (1.6-2.3) mg/dL Total Bilirubin (0.2-1.3) mg/dL AST (14-36) U/L ALT (0-35) U/L Alkaline Phosphatase (38-126) U/L Creatine Kinase (30-135) U/L Serum Total Protein (6.3-8.2) g/dL Albumin (3.5-5.0) g/dL Urine Color YELLOW (YELLOW) Urine Appearance CLEAR (CLEAR) Urine pH 5.0 (5-6) Ur Specific [place] 1.012 (1.005-1.025) Urine Protein NEGATIVE (Negative) Urine Ketones NEGATIVE (NEGATIVE) Urine Blood NEGATIVE (0-5) Misael/ul Urine Nitrite NEGATIVE (NEGATIVE) Urine Bilirubin NEGATIVE (NEGATIVE) Urine Urobilinogen NEGATIVE (0-1) mg/dL Ur Leukocyte Esterase NEGATIVE (NEGATIVE) Urine WBC (Auto) 0-2 (0-5) /HPF Urine RBC (Auto) NONE (0-2) /HPF U Hyaline Cast (Auto) 0-2 (0-2) /LPF U Epithel Cells (Auto) NONE (FEW) /HPF Urine Bacteria (Auto) NONE (NEGATIVE) /HPF Urine Mucus (Auto) SLIGHT (NEGATIVE) /HPF Urine Culture Reflexed ORDERED SEPARATELY (NO) Urine Glucose NEGATIVE (NEGATIVE) mg/dL Stool Occult Blood POSITIVE A (Negative) - Progress Progress: improved Progress Note: 09/27/19 15:29 Patient reassessed. She feels better. Patient states she is not hungry. Case discussed with Dr. Ruff who accepts admission to observation. 2 units PRBC ordered for transfusion due to symptomatic anemia. Plan of care discussed with patient. She agrees to admission to [facility] for further evaluation and treatment. Discussed with .: Prieto Will see patient in: hospital (observation) Counseled pt/family regarding: lab results, diagnosis, rad results - Departure Departure Disposition: Extended Care Facility Clinical Impression: Generalized weakness, Symptomatic anemia, Diverticulosis, GERD ( gastroesophageal reflux disease), Diarrhea, Rectovaginal fistula, Splenomegaly, Gallstones, Renal cyst, Osteopenia, Spondylolisthesis, Scoliosis, Perineural cyst Condition: Stable Critical Care Time: No Referrals: OTF RUFF MD [Primary Care Provider] -
[2019-09-27 13:13] LABS: Absolute Neutrophil Ct (ANC) 4.04 (1.4-6.9); BASOPHIL % 0.2 % (0.0-0.4); Basophil (Absolute #) 0.01 (0-0.4); Eosinophil % 1.1 % (0.00-5.0); Eosinophil (Absolute #) 0.05 (0-0.5); Hematocrit 27.7 % (35-47); Hemoglobin 8.2 gm/dl (12.0-16.0); Lymphocyte (Absolute #) 0.36 (1.0-4.6); Lymphocytes % 7.7 % (24.0-44.0); Mean Cell Volume 95.2 fl (78-100); Mean Corpuscular Hemoglobin 28.2 pg (26-32); Mean Corpuscular Hgb Concent. 29.6 g/dl (32-36); Mean Platelet Volume 10.1 fl (7.5-11.0); Monocyte (Absolute #) 0.24 (0.0-1.3); Monocytes % 5.1 % (0.0-12.0); Neutrophil % 85.9 % (36.0-66.0); Platelet Count 188 K/mm3 (150-450); Red Blood Count 2.91 M/mm3 (4.1-5.4); Red Cell Distribution Width 14.6 % (11.5-14.0); White Blood Count 4.7 K/mm3 (4.0-10.5)
[2019-09-27] MEDS ORDERED: Sodium Chloride 0.9% 1000 ML 1,000 ML ONE (13:14)
--- NOTE | 2019-09-27 13:14 | XRAY ---
Indication: Pneumonia. Comparison: August 02, 2018. Portable apical lordotic chest again demonstrates biapical fibrosis/scarring. No focal infiltrate, consolidation, or large effusion. Heart is not enlarged again with left-sided AICD. Bony thorax intact again with osteopenia, degenerative changes, double curvature scoliosis, and left axilla calcified nodes. Impression: Nonacute chest with chronic features.
[2019-09-27 13:30] LABS: ALBUMIN 3.6 g/dL (3.5-5.0); ALKALINE PHOSPHATASE 104 U/L (38-126); ANION GAP 9.5 MEQ/L (5-15); BLOOD UREA NITROGEN 11 mg/dL (7-17); CHLORIDE 99 mmol/L (98-107); Calcium 9.3 mg/dL (8.4-10.2); Carbon Dioxide 31 mmol/L (22-30); Creatinine 1 0.64 mg/dL (0.52-1.04); Glucose 115 mg/dL (74-106); Potassium 3.7 mmol/L (3.5-5.1); SGOT/AST 14 U/L (14-36); SGPT/ALT 8 U/L (0-35); SODIUM 136 mmol/L (137-145)
[2019-09-27 13:36] LABS: MAGNESIUM 1.7 mg/dL (1.6-2.3)
[2019-09-27 13:39] LABS: Appearance CLEAR (CLEAR); Bilirubin NEGATIVE (NEGATIVE); Blood NEGATIVE Ery/ul (0-5); Glucose NEGATIVE (NEGATIVE); Hyaline Casts 0-2 /LPF (0-2); Ketones NEGATIVE (NEGATIVE); Leukocyte Esterase NEGATIVE (NEGATIVE); Mucus SLIGHT /HPF (NEGATIVE); Nitrite NEGATIVE (NEGATIVE); Protein,Urine Dip NEGATIVE (Negative); Specific Gravity 1.012 (1.005-1.025); Urobilinogen NEGATIVE mg/dL (0-1); WBC 0-2 /HPF (0-5)
--- NOTE | 2019-09-27 14:43 | XRAY ---
Indication: Weakness. Multiple contiguous axial images obtained through the head without contrast. Comparison: August 02, 2018. There is again age-appropriate global atrophy, moderate periventricular degenerative micro-ischemia bilaterally, and remote left basal ganglia lacunar infarct. No acute intracranial hemorrhage, abnormal extra-axial fluid collection, or mass effect. Fourth ventricle is midline without hydrocephalus. Bony calvarium intact. Again partial opacification the right mastoid air cells presumed inflammatory. Visualized paranasal sinuses are clear. Impression: 1. Continued nonacute senile brain with remote left basal ganglia lacunar infarct. 2. Stable opacification of the right mastoid air cells again presumed inflammatory.
--- NOTE | 2019-09-27 15:00 | XRAY ---
Indication: Rectal pain, diarrhea, and weakness. Possible rectovaginal fistula. History rectal carcinoma 2017. Multiple contiguous axial images obtained through the abdomen and pelvis using 80 cc Isovue 370 contrast only. Comparison: August 03, 2018. Lung bases again demonstrates diffuse pulmonary emphysema with minimal scattered fibrosis/scarring. No infiltrate or effusion. Heart is not enlarged again with cardiac pacer leads. Small amount of fluid in the distal esophagus presumed from gastroesophageal reflux. Noncontrasted stomach and bowel loops appear nonobstructed. There remains scattered colonic diverticulosis greatest in the descending and sigmoid colon. There is now a rectovaginal fistula best seen on series 4, images 75-77. Again 13 cm splenomegaly, 4 cm gallstone, small left renal cyst, and Harrell catheter in situ. No free fluid/air. Remaining liver, pancreas, spleen, adrenal glands, kidneys, ureters, and bladder appear unremarkable. Stable heavy scattered vascular calcifications. No AAA or pathologic retroperitoneal lymphadenopathy. Osseous structures again demonstrates osteopenia, moderate/advanced multilevel degenerative spondylosis, grade 1 L5 spondylolisthesis, moderate double curvature scoliosis, and left S2 perineural cyst. Impression: 1. New rectovaginal fistula. 2. Stable pulmonary emphysema, large gallstone, splenomegaly, left renal cyst, colonic diverticulosis, and chronic bony findings.
[2019-09-27] MEDS ORDERED: Zofran 4 MG/2 ML VIAL IV PRN (16:18)
[2019-09-27] MEDS ORDERED: TYLENOL 325 MG PO PRN (16:18)
[2019-09-27] MEDS ORDERED: MORPHINE SULFATE 4 MG INJ IV PRN (16:18)
--- NOTE | 2019-09-27 16:25 | PCM.HP ---
History of Present Illness - Chief Complaint Chief Complaint: symptomatic anemia History of Present Illness: is a 79 year old female with advanced copd and CAD who has a known rectal carcinoma, has been advised that she is too frail for any surgery, chemo or radiation by her oncologist and pulm/cardiology as well. She has a known rectovaginal fistula, is currently on home health. was advised hospice but wanted to explore treatment options. she has become weaker and today was unable to ambulate so sat on the floor, was discovered within 10-15 minutes by her home health nurse. she complains of pain in her rectum with irritation of the skin from stool leakage. - Review of Systems Constitutional: Weakness, No Fever, No Chills Respiratory: Short Of Breath (chronic) Cardiac: No Chest Pain, No Edema, No Syncope Abdominal/Gastrointestinal: Other (rectal pain, stool leakage ), No Abdominal Pain, No Nausea, No Vomiting, No Diarrhea Skin: No Rash All Other Systems: Reviewed and Negative Medications & Allergies Home Medications: Home Medication List Atorvastatin Calcium [Lipitor] 20 mg PO HS 02/28/13 [History Confirmed 11/25/18] Furosemide 40 mg [Lasix 40 MG] 40 mg PO BID 02/28/13 [History Confirmed ] Carvedilol 6.25 mg [Coreg 6.25 MG] 12.5 mg PO BID 01/07/17 [History Confirmed 11/25/18] Fluticasone/Vilanterol [Breo Ellipta 100-25 Mcg INH] 1 each IH DAILY 01/07/17 [ History Confirmed 11/25/18] Omeprazole 40 mg PO DAILY 01/07/17 [History Confirmed 11/25/18] Potassium Chloride 10 Meq Tab* [Klor Con 10 MEQ] 10 meq PO BID 01/07/17 [ History Confirmed 11/25/18] Rivaroxaban [Xarelto] 1 tab PO DAILY 08/02/18 [History Confirmed 11/25/18] Albuterol 2.5 mg/3 ml Neb [Proventil 2.5 mg/3 ml Neb] 2.5 mg IH Q4HPRN PRN 11/25/18 [History Confirmed 11/25/18] Ipratropium/Albuterol Sulfate [Combivent Inhaler] 14.7 gm IH QID 11/25/18 [ History Confirmed 11/25/18] Ipratropium/Albuterol Sulfate [Iprat-Albut 0.5-3(2.5) mg/3 ml] 3 ml IH DAILY 08/03 [History Confirmed 11/25/18] Allergies/Adverse Reactions: Allergies Allergy/AdvReac Type Severity Reaction Status Date / Time sulfasalazine Allergy Severe Verified 09/27/19 13:35 metronidazole [From Flagyl] AdvReac Severe Vomiting Verified 09/27/19 12:57 iron AdvReac Verified 09/27/19 12:56 - Past Medical History Past Medical History: Yes Neurological History: No Pertinent History ENT History: Cataracts Cardiac History: Arrhythmia, Myocardial Infarction ([place]), Other Respiratory History: Emphysema Endocrine Medical History: No Pertinent History Musculoskelatal History: No Pertinent History GI Medical History: No Pertinent History History: No Pertinent History Pyscho-Social History: No Pertinent History Reproductive Disorders: Endometriosis Comment: APICAL THROMBUS, 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 PACEMAKER/DEFIBRILLATOR VIA DR ECHEVERRIA. 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 IN JUN 2012 WAS ON THE VENTILATOR FOR 11 DAYS. - Past Surgical History Past Surgical History: Yes Neuro Surgical History: No Pertinent History Cardiac History: No Pertinent History, Internal Defibrillator, Pacemaker Respiratory Surgery: No Pertinent History GI Surgical History: No Pertinent History Genitourinary Surgical Hx: No Pertinent History Musculskeletal Surgical Hx: No Pertinent History Female Surgical History: Hysterectomy Other Surgical History: cataract surgery - Social History Smoking Status: Former smoker How long have you smoked: 50 years Exposure to second hand smoke: (unknown) Alcohol: None Drug Use: none - Physical Exam Vital Signs: Vital Signs - 24 hr Temp Pulse Resp BP Pulse Ox 09/27/19 15:30 99 09/27/19 15:28 99.0 F 66 20 148/50 99 09/27/19 14:41 84 22 99 09/27/19 14:11 64 128/50 99 09/27/19 13:10 99.1 F 64 22 128/50 99 09/27/19 13:07 99 09/27/19 12:34 128/50 General Appearance: other (chronically ill, frail) Neurologic Exam: alert, oriented x 3, cooperative Respiratory Exam: diminished breath sounds, prolonged expirations Cardiovascular Exam: regular rate/rhythm, normal heart sounds, normal peripheral pulses Gastrointestinal/Abdomen Exam: soft, normal bowel sounds, No tenderness, No mass Skin Exam: normal color, warm, dry, No rash Results - Labs Lab/Micro Results: Lab Results-Last 24 Hours 09/27/19 09/27/19 09/27/19 Range/Units 13:00 13:00 13:05 WBC 4.7 (4.0-10.5) K/mm3 RBC 2.91 L (4.1-5.4) M/mm3 Hgb 8.2 L (12.0-16.0) gm/dl Hct 27.7 L (35-47) % MCV 95.2 (78-100) fl MCH 28.2 (26-32) pg MCHC 29.6 L (32-36) g/dl RDW 14.6 H (11.5-14.0) % Plt Count 188 (150-450) K/mm3 MPV 10.1 (7.5-11.0) fl Gran % 85.9 H (36.0-66.0) % Eos # (Auto) 0.05 (0-0.5) Absolute Lymphs (auto) 0.36 L (1.0-4.6) Absolute Monos (auto) 0.24 (0.0-1.3) Lymphocytes % 7.7 L (24.0-44.0) % Monocytes % 5.1 (0.0-12.0) % Eosinophils % 1.1 (0.00-5.0) % Basophils % 0.2 (0.0-0.4) % Absolute Granulocytes 4.04 (1.4-6.9) Basophils # 0.01 (0-0.4) Sodium (137-145) mmol/L Potassium (3.5-5.1) mmol/L Chloride (98-107) mmol/L Carbon Dioxide (22-30) mmol/L Anion Gap (5-15) MEQ/L BUN (7-17) mg/dL Creatinine (0.52-1.04) mg/dL Estimated GFR ML/MIN Glucose (74-106) mg/dL Calcium (8.4-10.2) mg/dL Magnesium (1.6-2.3) mg/dL Total Bilirubin (0.2-1.3) mg/dL AST (14-36) U/L ALT (0-35) U/L Alkaline Phosphatase (38-126) U/L Creatine Kinase (30-135) U/L Serum Total Protein (6.3-8.2) g/dL Albumin (3.5-5.0) g/dL Urine Color YELLOW (YELLOW) Urine Appearance CLEAR (CLEAR) Urine pH 5.0 (5-6) Ur Specific [place] 1.012 (1.005-1.025) Urine Protein NEGATIVE (Negative) Urine Ketones NEGATIVE (NEGATIVE) Urine Blood NEGATIVE (0-5) Misael/ul Urine Nitrite NEGATIVE (NEGATIVE) Urine Bilirubin NEGATIVE (NEGATIVE) Urine Urobilinogen NEGATIVE (0-1) mg/dL Ur Leukocyte Esterase NEGATIVE (NEGATIVE) Urine WBC (Auto) 0-2 (0-5) /HPF Urine RBC (Auto) NONE (0-2) /HPF U Hyaline Cast (Auto) 0-2 (0-2) /LPF U Epithel Cells (Auto) NONE (FEW) /HPF Urine Bacteria (Auto) NONE (NEGATIVE) /HPF Urine Mucus (Auto) SLIGHT (NEGATIVE) /HPF Urine Culture Reflexed ORDERED SEPARATELY (NO) Urine Glucose NEGATIVE (NEGATIVE) mg/dL Stool Occult Blood POSITIVE A (Negative) ABO Group Rh Factor Antibody Screen Crossmatch 09/27/19 09/27/19 09/27/19 Range/Units 13:05 13:05 15:35 WBC (4.0-10.5) K/mm3 RBC (4.1-5.4) M/mm3 Hgb (12.0-16.0) gm/dl Hct (35-47) % MCV (78-100) fl MCH (26-32) pg MCHC (32-36) g/dl RDW (11.5-14.0) % Plt Count (150-450) K/mm3 MPV (7.5-11.0) fl Gran % (36.0-66.0) % Eos # (Auto) (0-0.5) Absolute Lymphs (auto) (1.0-4.6) Absolute Monos (auto) (0.0-1.3) Lymphocytes % (24.0-44.0) % Monocytes % (0.0-12.0) % Eosinophils % (0.00-5.0) % Basophils % (0.0-0.4) % Absolute Granulocytes (1.4-6.9) Basophils # (0-0.4) Sodium 136 L (137-145) mmol/L Potassium 3.7 (3.5-5.1) mmol/L Chloride 99 (98-107) mmol/L Carbon Dioxide 31 H (22-30) mmol/L Anion Gap 9.5 (5-15) MEQ/L BUN 11 (7-17) mg/dL Creatinine 0.64 (0.52-1.04) mg/dL Estimated GFR > 60.0 ML/MIN Glucose 115 H (74-106) mg/dL Calcium 9.3 (8.4-10.2) mg/dL Magnesium 1.7 (1.6-2.3) mg/dL Total Bilirubin 0.50 (0.2-1.3) mg/dL AST 14 (14-36) U/L ALT 8 (0-35) U/L Alkaline Phosphatase 104 (38-126) U/L Creatine Kinase 31 (30-135) U/L Serum Total Protein 7.0 (6.3-8.2) g/dL Albumin 3.6 (3.5-5.0) g/dL Urine Color (YELLOW) Urine Appearance (CLEAR) Urine pH (5-6) Ur Specific [place] (1.005-1.025) Urine Protein (Negative) Urine Ketones (NEGATIVE) Urine Blood (0-5) Misael/ul Urine Nitrite (NEGATIVE) Urine Bilirubin (NEGATIVE) Urine Urobilinogen (0-1) mg/dL Ur Leukocyte Esterase (NEGATIVE) Urine WBC (Auto) (0-5) /HPF Urine RBC (Auto) (0-2) /HPF U Hyaline Cast (Auto) (0-2) /LPF U Epithel Cells (Auto) (FEW) /HPF Urine Bacteria (Auto) (NEGATIVE) /HPF Urine Mucus (Auto) (NEGATIVE) /HPF Urine Culture Reflexed (NO) Urine Glucose (NEGATIVE) mg/dL Stool Occult Blood (Negative) ABO Group Pending Rh Factor Pending Antibody Screen Pending Crossmatch Pending - Radiology Impressions Radiology Exams & Impressions: Radiology Procedures Category Date Time Status ABDOMEN AND PELVIS W CONTRAST [CT] Stat Exams 09/27/19 12:55 Completed CHEST 1 VIEW (PORTABLE) Stat Exams 09/27/19 12:50 Completed HEAD WITHOUT CONTRAST [CT] Stat Exams 09/27/19 12:50 Completed Assessment/Plan (1) Anemia Current Visit: No Status: Chronic Assessment & Plan: on xarelto for a fib, has rectal cancer so risk of clot is high. has heme + stool, will transfuse 2 units and watch levels Code(s): D64.9 - ANEMIA, UNSPECIFIED (2) Generalized weakness Current Visit: Yes Status: Acute Code(s): R53.1 - WEAKNESS (3) Rectal carcinoma Current Visit: No Status: Chronic Assessment & Plan: discussed hospice with patient, does not seem to have any viable treatment options and she seems to understand. will tranfuse tonight and hydrate, pain control and discuss hospice referral again tomorrow. Code(s): C20 - MALIGNANT NEOPLASM OF RECTUM (4) Rectovaginal fistula Current Visit: Yes Status: Acute Assessment & Plan: not a surgical candidate Code(s): N82.3 - FISTULA OF VAGINA TO LARGE INTESTINE (5) End stage chronic obstructive pulmonary disease Current Visit: No Status: Acute Code(s): J44.9 - CHRONIC OBSTRUCTIVE PULMONARY DISEASE, UNSPECIFIED (6) Atrial fibrillation Current Visit: No Status: Chronic Code(s): I48.91 - UNSPECIFIED ATRIAL FIBRILLATION
[2019-09-27] MEDS ORDERED: Lasix 20 MG/2 ML IV PRN (16:27)
[2019-09-27] MEDS ORDERED: Sodium Chloride 0.9% W/ 20 mEq KCl/LITER 1,000 ML IV SCH (16:30)
[2019-09-27] MEDS ORDERED: DUONEB 0.5-3 MG/3 ml Neb IH ONE (16:47)
[2019-09-27] MEDS: DUONEB 0.5-3 MG/3 ml Neb IH SCH (17:00)
[2019-09-27 17:48] LABS: ABO TYPING A; Antibody Screen NEGATIVE (NEGATIVE); RH TYPING POSITIVE
[2019-09-27 17:50] LABS: CROSS MATCH (PRBC) COMPATIBLE (COMPATIBLE)
[2019-09-27] MEDS ORDERED: Sodium Chloride 0.9% 1000 ML 1,000 ML IV SCH (18:00)
[2019-09-27] MEDS: Klor Con 10 MEQ PO SCH (21:07)
[2019-09-27] MEDS: COREG 12.5 MG PO SCH (21:07)
[2019-09-28] MEDS: DUONEB 0.5-3 MG/3 ml Neb IH SCH ×3 (00:24→13:19)
[2019-09-28 01:40] LABS: Hematocrit 32.6 % (35-47)
[2019-09-28 01:46] LABS: Hemoglobin 10.1 gm/dl (12.0-16.0)
[2019-09-28 05:41] LABS: Absolute Neutrophil Ct (ANC) 3.25 (1.4-6.9); Basophil (Absolute #) 0 (0-0.4); Eosinophil % 1.2 % (0.00-5.0); Eosinophil (Absolute #) 0.05 (0-0.5); Hematocrit 30.8 % (35-47); Hemoglobin 9.7 gm/dl (12.0-16.0); Lymphocyte (Absolute #) 0.45 (1.0-4.6); Lymphocytes % 11.2 % (24.0-44.0); Mean Cell Volume 91.9 fl (78-100); Mean Corpuscular Hgb Concent. 31.5 g/dl (32-36); Mean Platelet Volume 9.7 fl (7.5-11.0); Monocyte (Absolute #) 0.26 (0.0-1.3); Monocytes % 6.5 % (0.0-12.0); Neutrophil % 81.1 % (36.0-66.0); Platelet Count 154 K/mm3 (150-450); Red Blood Count 3.35 M/mm3 (4.1-5.4); Red Cell Distribution Width 14.9 % (11.5-14.0)
[2019-09-28 06:08] LABS: ALBUMIN 3.1 g/dL (3.5-5.0); ALKALINE PHOSPHATASE 89 U/L (38-126); BLOOD UREA NITROGEN 8 mg/dL (7-17); CHLORIDE 99 mmol/L (98-107); Calcium 8.5 mg/dL (8.4-10.2); Carbon Dioxide 32 mmol/L (22-30); Creatinine 1 0.55 mg/dL (0.52-1.04); Glucose 91 mg/dL (74-106); Potassium 3.1 mmol/L (3.5-5.1); SGOT/AST 14 U/L (14-36); SODIUM 133 mmol/L (137-145)
[2019-09-28 06:22] LABS: SGPT/ALT 5 U/L (0-35)
[2019-09-28 06:29] LABS: Slide Review 1 YES
--- NOTE | 2019-09-28 08:20 | PCM.NOTE ---
Date and Time: 09/28/19818 Subjective Assessment: patient feeling some better overnight, still feels weak. Objective Exam General Appearance: no apparent distress, other (weak,frail) Neurologic Exam: alert, oriented x 3 Skin Exam: normal color, warm, dry Respiratory Exam: normal breath sounds, lungs clear, No respiratory distress Cardiovascular Exam: regular rate/rhythm, normal heart sounds Gastrointestinal/Abdomen Exam: soft, No tenderness, No mass OBJECTIVE DATA Vital Signs: Vital Signs - 24 hr Temp Pulse Resp BP Pulse Ox 09/28/19 07:52 97.8 F 70 22 128/61 96 09/28/19 06:52 66 20 98 09/28/19 04:00 98.7 F 77 19 140/65 98 09/28/19 00:25 70 21 98 09/28/19 00:00 97.8 F 68 18 119/56 99 09/27/19 20:51 97 09/27/19 20:00 98.1 F 67 18 136/60 100 09/27/19 17:03 65 20 99 09/27/19 16:56 98.4 F 66 18 143/62 99 09/27/19 16:00 98.4 F 66 18 143/62 99 09/27/19 15:30 99 09/27/19 15:28 99.0 F 66 20 148/50 99 09/27/19 14:41 84 22 99 09/27/19 14:11 64 128/50 99 09/27/19 13:10 99.1 F 64 22 128/50 99 09/27/19 13:07 99 09/27/19 12:34 128/50 Oxygen-Last 24 hours Oxygen Flowrate (L/min)-RT 6 Oxygen Flowrate (L/min)-RT 6 Pain Assessment - Last Documented Pain Intensity 4 Pain Scale Used 0-10 Pain Scale Intake and Output: Intake & Output 09/25/19 09/26/19 09/27/19 09/28/19 11:59 11:59 11:59 11:59 Intake Total 1846 Output Total 3100 Balance -1254 Weight 67 kg Lab Results: Lab Results-Last 24 Hours 09/27/19 09/27/19 09/27/19 Range/Units 13:00 13:00 13:05 WBC 4.7 (4.0-10.5) K/mm3 RBC 2.91 L (4.1-5.4) M/mm3 Hgb 8.2 L (12.0-16.0) gm/dl Hct 27.7 L (35-47) % MCV 95.2 (78-100) fl MCH 28.2 (26-32) pg MCHC 29.6 L (32-36) g/dl RDW 14.6 H (11.5-14.0) % Plt Count 188 (150-450) K/mm3 MPV 10.1 (7.5-11.0) fl Gran % 85.9 H (36.0-66.0) % Eos # (Auto) 0.05 (0-0.5) Absolute Lymphs (auto) 0.36 L (1.0-4.6) Absolute Monos (auto) 0.24 (0.0-1.3) Lymphocytes % 7.7 L (24.0-44.0) % Monocytes % 5.1 (0.0-12.0) % Eosinophils % 1.1 (0.00-5.0) % Basophils % 0.2 (0.0-0.4) % Absolute Granulocytes 4.04 (1.4-6.9) Basophils # 0.01 (0-0.4) Sodium (137-145) mmol/L Potassium (3.5-5.1) mmol/L Chloride (98-107) mmol/L Carbon Dioxide (22-30) mmol/L Anion Gap (5-15) MEQ/L BUN (7-17) mg/dL Creatinine (0.52-1.04) mg/dL Estimated GFR ML/MIN Glucose (74-106) mg/dL Calcium (8.4-10.2) mg/dL Magnesium (1.6-2.3) mg/dL Total Bilirubin (0.2-1.3) mg/dL AST (14-36) U/L ALT (0-35) U/L Alkaline Phosphatase (38-126) U/L Creatine Kinase (30-135) U/L Serum Total Protein (6.3-8.2) g/dL Albumin (3.5-5.0) g/dL Urine Color YELLOW (YELLOW) Urine Appearance CLEAR (CLEAR) Urine pH 5.0 (5-6) Ur Specific [place] 1.012 (1.005-1.025) Urine Protein NEGATIVE (Negative) Urine Ketones NEGATIVE (NEGATIVE) Urine Blood NEGATIVE (0-5) Misael/ul Urine Nitrite NEGATIVE (NEGATIVE) Urine Bilirubin NEGATIVE (NEGATIVE) Urine Urobilinogen NEGATIVE (0-1) mg/dL Ur Leukocyte Esterase NEGATIVE (NEGATIVE) Urine WBC (Auto) 0-2 (0-5) /HPF Urine RBC (Auto) NONE (0-2) /HPF U Hyaline Cast (Auto) 0-2 (0-2) /LPF U Epithel Cells (Auto) NONE (FEW) /HPF Urine Bacteria (Auto) NONE (NEGATIVE) /HPF Urine Mucus (Auto) SLIGHT (NEGATIVE) /HPF Urine Culture Reflexed ORDERED SEPARATELY (NO) Urine Glucose NEGATIVE (NEGATIVE) mg/dL Stool Occult Blood POSITIVE A (Negative) Slides for Path Review ABO Group Rh Factor Antibody Screen (NEGATIVE) Crossmatch (COMPATIBLE) 09/27/19 09/27/19 09/27/19 Range/Units 13:05 13:05 15:35 WBC (4.0-10.5) K/mm3 RBC (4.1-5.4) M/mm3 Hgb (12.0-16.0) gm/dl Hct (35-47) % MCV (78-100) fl MCH (26-32) pg MCHC (32-36) g/dl RDW (11.5-14.0) % Plt Count (150-450) K/mm3 MPV (7.5-11.0) fl Gran % (36.0-66.0) % Eos # (Auto) (0-0.5) Absolute Lymphs (auto) (1.0-4.6) Absolute Monos (auto) (0.0-1.3) Lymphocytes % (24.0-44.0) % Monocytes % (0.0-12.0) % Eosinophils % (0.00-5.0) % Basophils % (0.0-0.4) % Absolute Granulocytes (1.4-6.9) Basophils # (0-0.4) Sodium 136 L (137-145) mmol/L Potassium 3.7 (3.5-5.1) mmol/L Chloride 99 (98-107) mmol/L Carbon Dioxide 31 H (22-30) mmol/L Anion Gap 9.5 (5-15) MEQ/L BUN 11 (7-17) mg/dL Creatinine 0.64 (0.52-1.04) mg/dL Estimated GFR > 60.0 ML/MIN Glucose 115 H (74-106) mg/dL Calcium 9.3 (8.4-10.2) mg/dL Magnesium 1.7 (1.6-2.3) mg/dL Total Bilirubin 0.50 (0.2-1.3) mg/dL AST 14 (14-36) U/L ALT 8 (0-35) U/L Alkaline Phosphatase 104 (38-126) U/L Creatine Kinase 31 (30-135) U/L Serum Total Protein 7.0 (6.3-8.2) g/dL Albumin 3.6 (3.5-5.0) g/dL Urine Color (YELLOW) Urine Appearance (CLEAR) Urine pH (5-6) Ur Specific [place] (1.005-1.025) Urine Protein (Negative) Urine Ketones (NEGATIVE) Urine Blood (0-5) Misael/ul Urine Nitrite (NEGATIVE) Urine Bilirubin (NEGATIVE) Urine Urobilinogen (0-1) mg/dL Ur Leukocyte Esterase (NEGATIVE) Urine WBC (Auto) (0-5) /HPF Urine RBC (Auto) (0-2) /HPF U Hyaline Cast (Auto) (0-2) /LPF U Epithel Cells (Auto) (FEW) /HPF Urine Bacteria (Auto) (NEGATIVE) /HPF Urine Mucus (Auto) (NEGATIVE) /HPF Urine Culture Reflexed (NO) Urine Glucose (NEGATIVE) mg/dL Stool Occult Blood (Negative) Slides for Path Review ABO Group A Rh Factor POSITIVE Antibody Screen NEGATIVE (NEGATIVE) Crossmatch COMPATIBLE (COMPATIBLE) 09/27/19 09/28/19 09/28/19 Range/Units 15:35 01:13 05:39 WBC 4.0 (4.0-10.5) K/mm3 RBC 3.35 L (4.1-5.4) M/mm3 Hgb 10.1 L D 9.7 L (12.0-16.0) gm/dl Hct 32.6 L 30.8 L (35-47) % MCV 91.9 (78-100) fl MCH 29.0 (26-32) pg MCHC 31.5 L (32-36) g/dl RDW 14.9 H (11.5-14.0) % Plt Count 154 (150-450) K/mm3 MPV 9.7 (7.5-11.0) fl Gran % 81.1 H (36.0-66.0) % Eos # (Auto) 0.05 (0-0.5) Absolute Lymphs (auto) 0.45 L (1.0-4.6) Absolute Monos (auto) 0.26 (0.0-1.3) Lymphocytes % 11.2 L (24.0-44.0) % Monocytes % 6.5 (0.0-12.0) % Eosinophils % 1.2 (0.00-5.0) % Basophils % 0.0 (0.0-0.4) % Absolute Granulocytes 3.25 (1.4-6.9) Basophils # 0 (0-0.4) Sodium (137-145) mmol/L Potassium (3.5-5.1) mmol/L Chloride (98-107) mmol/L Carbon Dioxide (22-30) mmol/L Anion Gap (5-15) MEQ/L BUN (7-17) mg/dL Creatinine (0.52-1.04) mg/dL Estimated GFR ML/MIN Glucose (74-106) mg/dL Calcium (8.4-10.2) mg/dL Magnesium (1.6-2.3) mg/dL Total Bilirubin (0.2-1.3) mg/dL AST (14-36) U/L ALT (0-35) U/L Alkaline Phosphatase (38-126) U/L Creatine Kinase (30-135) U/L Serum Total Protein (6.3-8.2) g/dL Albumin (3.5-5.0) g/dL Urine Color (YELLOW) Urine Appearance (CLEAR) Urine pH (5-6) Ur Specific [place] (1.005-1.025) Urine Protein (Negative) Urine Ketones (NEGATIVE) Urine Blood (0-5) Misael/ul Urine Nitrite (NEGATIVE) Urine Bilirubin (NEGATIVE) Urine Urobilinogen (0-1) mg/dL Ur Leukocyte Esterase (NEGATIVE) Urine WBC (Auto) (0-5) /HPF Urine RBC (Auto) (0-2) /HPF U Hyaline Cast (Auto) (0-2) /LPF U Epithel Cells (Auto) (FEW) /HPF Urine Bacteria (Auto) (NEGATIVE) /HPF Urine Mucus (Auto) (NEGATIVE) /HPF Urine Culture Reflexed (NO) Urine Glucose (NEGATIVE) mg/dL Stool Occult Blood (Negative) Slides for Path Review YES ABO Group Rh Factor Antibody Screen (NEGATIVE) Crossmatch COMPATIBLE (COMPATIBLE) 09/28/19 Range/Units 05:39 WBC (4.0-10.5) K/mm3 RBC (4.1-5.4) M/mm3 Hgb (12.0-16.0) gm/dl Hct (35-47) % MCV (78-100) fl MCH (26-32) pg MCHC (32-36) g/dl RDW (11.5-14.0) % Plt Count (150-450) K/mm3 MPV (7.5-11.0) fl Gran % (36.0-66.0) % Eos # (Auto) (0-0.5) Absolute Lymphs (auto) (1.0-4.6) Absolute Monos (auto) (0.0-1.3) Lymphocytes % (24.0-44.0) % Monocytes % (0.0-12.0) % Eosinophils % (0.00-5.0) % Basophils % (0.0-0.4) % Absolute Granulocytes (1.4-6.9) Basophils # (0-0.4) Sodium 133 L (137-145) mmol/L Potassium 3.1 L (3.5-5.1) mmol/L Chloride 99 (98-107) mmol/L Carbon Dioxide 32 H (22-30) mmol/L Anion Gap 5.0 (5-15) MEQ/L BUN 8 (7-17) mg/dL Creatinine 0.55 (0.52-1.04) mg/dL Estimated GFR > 60.0 ML/MIN Glucose 91 (74-106) mg/dL Calcium 8.5 (8.4-10.2) mg/dL Magnesium (1.6-2.3) mg/dL Total Bilirubin 0.60 (0.2-1.3) mg/dL AST 14 (14-36) U/L ALT 5 (0-35) U/L Alkaline Phosphatase 89 (38-126) U/L Creatine Kinase (30-135) U/L Serum Total Protein 6.0 L (6.3-8.2) g/dL Albumin 3.1 L (3.5-5.0) g/dL Urine Color (YELLOW) Urine Appearance (CLEAR) Urine pH (5-6) Ur Specific [place] (1.005-1.025) Urine Protein (Negative) Urine Ketones (NEGATIVE) Urine Blood (0-5) Misael/ul Urine Nitrite (NEGATIVE) Urine Bilirubin (NEGATIVE) Urine Urobilinogen (0-1) mg/dL Ur Leukocyte Esterase (NEGATIVE) Urine WBC (Auto) (0-5) /HPF Urine RBC (Auto) (0-2) /HPF U Hyaline Cast (Auto) (0-2) /LPF U Epithel Cells (Auto) (FEW) /HPF Urine Bacteria (Auto) (NEGATIVE) /HPF Urine Mucus (Auto) (NEGATIVE) /HPF Urine Culture Reflexed (NO) Urine Glucose (NEGATIVE) mg/dL Stool Occult Blood (Negative) Slides for Path Review ABO Group Rh Factor Antibody Screen (NEGATIVE) Crossmatch (COMPATIBLE) Radiology Exams: Radiology Procedures Category Date Time Status ABDOMEN AND PELVIS W CONTRAST [CT] Stat Exams 09/27/19 12:55 Completed CHEST 1 VIEW (PORTABLE) Stat Exams 09/27/19 12:50 Completed HEAD WITHOUT CONTRAST [CT] Stat Exams 09/27/19 12:50 Completed Assessment/Plan (1) Anemia Current Visit: No Status: Chronic Code(s): D64.9 - ANEMIA, UNSPECIFIED (2) Generalized weakness Current Visit: Yes Status: Acute Code(s): R53.1 - WEAKNESS (3) Rectal carcinoma Current Visit: No Status: Chronic Assessment & Plan: patient agrees to hospice referral at this time, will consult and ok to go home when everything ready at home. Code(s): C20 - MALIGNANT NEOPLASM OF RECTUM (4) Rectovaginal fistula Current Visit: Yes Status: Acute Code(s): N82.3 - FISTULA OF VAGINA TO LARGE INTESTINE (5) End stage chronic obstructive pulmonary disease Current Visit: No Status: Acute Code(s): J44.9 - CHRONIC OBSTRUCTIVE PULMONARY DISEASE, UNSPECIFIED (6) Atrial fibrillation Current Visit: No Status: Chronic Code(s): I48.91 - UNSPECIFIED ATRIAL FIBRILLATION
[2019-09-28] MEDS ORDERED: Advair Hfa 115/21 Common canister IH SCH (09:45)
[2019-09-28] MEDS ORDERED: XARELTO 10 MG TABLET PO SCH (10:00)
[2019-09-28] MEDS ORDERED: Protonix 40MG Tablet PO SCH (10:00)
[2019-09-28] MEDS ORDERED: NON-FORMULARY ITEM (Fluticasone/Vilanterol [Breo Ellipta 100-25 Mcg Inh] 1 PUFF) IH SCH (10:00)
[2019-09-28] MEDS ORDERED: Lasix 40 MG PO SCH (10:00)
[2019-09-28] MEDS: COREG 12.5 MG PO SCH (10:28)
[2019-09-28] MEDS: Klor Con 10 MEQ PO SCH (10:29)
[2019-09-28 11:50] VITALS: BP 134/62
[2019-09-28 13:21] VITALS: PULSE 62; O2SAT 98
--- NOTE | 2019-09-28 14:05 | PCM.DS ---
Discharge Summary Date of Admission: 09/27/19 15:59 Admitting Physician: OTF SOLIZ Primary Care Provider: OTF SOLIZ Allergies Allergies sulfasalazine Allergy (Severe, Verified 09/27/19 13:35) metronidazole [From Flagyl] Adverse Reaction (Severe, Verified 09/27/19 12:57) Vomiting iron Adverse Reaction (Verified 09/27/19 12:56) Hospital Summary - Hospital Course Hospital Course: patient was admitted with increasing weakness, was unable to get out of the floor at home. found with anemia, was given 2 units of packed red cells and hydration. she has advanced rectal cancer with rectovaginal fistula, she is not a candidate for any treatment due to her cardiac and pulmonary condition. she has been seeing Dr Nj [facility] for [facility]ology and is seen by Dr Kiran and Johana and they concur she cannot have surgical intervention. she was advised she could not tolerate any further radiation or chemo so currently planning to switch to palliative care, hospice was consulted but she lives alone so has elected to be transferred to [facility] Vitals & Intake/Output Vital Signs: Vital Signs Temperature 97.5 F 09/28/19 11:50 Pulse Rate 62 09/28/19 13:20 Respiratory Rate 24 09/28/19 13:20 Blood Pressure 134/62 09/28/19 11:50 O2 Sat by Pulse Oximetry 98 09/28/19 13:20 Intake & Output: Intake & Output 09/26/19 09/27/19 09/28/19 09/29/19 11:59 11:59 11:59 11:59 Intake Total 2206 240 Output Total 3100 Balance -894 240 Weight 67 kg - Lab Result Diagrams: 09/28/19 05:39 09/28/19 05:39 Lab Results-Last 24 Hrs: Lab Results-Last 24 Hours 09/27/19 09/27/19 09/28/19 Range/Units 15:35 15:35 01:13 WBC (4.0-10.5) K/mm3 RBC (4.1-5.4) M/mm3 Hgb 10.1 L D (12.0-16.0) gm/dl Hct 32.6 L (35-47) % MCV (78-100) fl MCH (26-32) pg MCHC (32-36) g/dl RDW (11.5-14.0) % Plt Count (150-450) K/mm3 MPV (7.5-11.0) fl Gran % (36.0-66.0) % Eos # (Auto) (0-0.5) Absolute Lymphs (auto) (1.0-4.6) Absolute Monos (auto) (0.0-1.3) Lymphocytes % (24.0-44.0) % Monocytes % (0.0-12.0) % Eosinophils % (0.00-5.0) % Basophils % (0.0-0.4) % Absolute Granulocytes (1.4-6.9) Basophils # (0-0.4) Sodium (137-145) mmol/L Potassium (3.5-5.1) mmol/L Chloride (98-107) mmol/L Carbon Dioxide (22-30) mmol/L Anion Gap (5-15) MEQ/L BUN (7-17) mg/dL Creatinine (0.52-1.04) mg/dL Estimated GFR ML/MIN Glucose (74-106) mg/dL Calcium (8.4-10.2) mg/dL Total Bilirubin (0.2-1.3) mg/dL AST (14-36) U/L ALT (0-35) U/L Alkaline Phosphatase (38-126) U/L Serum Total Protein (6.3-8.2) g/dL Albumin (3.5-5.0) g/dL Slides for Path Review ABO Group A Rh Factor POSITIVE Antibody Screen NEGATIVE (NEGATIVE) Crossmatch COMPATIBLE COMPATIBLE (COMPATIBLE) 09/28/19 09/28/19 Range/Units 05:39 05:39 WBC 4.0 (4.0-10.5) K/mm3 RBC 3.35 L (4.1-5.4) M/mm3 Hgb 9.7 L (12.0-16.0) gm/dl Hct 30.8 L (35-47) % MCV 91.9 (78-100) fl MCH 29.0 (26-32) pg MCHC 31.5 L (32-36) g/dl RDW 14.9 H (11.5-14.0) % Plt Count 154 (150-450) K/mm3 MPV 9.7 (7.5-11.0) fl Gran % 81.1 H (36.0-66.0) % Eos # (Auto) 0.05 (0-0.5) Absolute Lymphs (auto) 0.45 L (1.0-4.6) Absolute Monos (auto) 0.26 (0.0-1.3) Lymphocytes % 11.2 L (24.0-44.0) % Monocytes % 6.5 (0.0-12.0) % Eosinophils % 1.2 (0.00-5.0) % Basophils % 0.0 (0.0-0.4) % Absolute Granulocytes 3.25 (1.4-6.9) Basophils # 0 (0-0.4) Sodium 133 L (137-145) mmol/L Potassium 3.1 L (3.5-5.1) mmol/L Chloride 99 (98-107) mmol/L Carbon Dioxide 32 H (22-30) mmol/L Anion Gap 5.0 (5-15) MEQ/L BUN 8 (7-17) mg/dL Creatinine 0.55 (0.52-1.04) mg/dL Estimated GFR > 60.0 ML/MIN Glucose 91 (74-106) mg/dL Calcium 8.5 (8.4-10.2) mg/dL Total Bilirubin 0.60 (0.2-1.3) mg/dL AST 14 (14-36) U/L ALT 5 (0-35) U/L Alkaline Phosphatase 89 (38-126) U/L Serum Total Protein 6.0 L (6.3-8.2) g/dL Albumin 3.1 L (3.5-5.0) g/dL Slides for Path Review YES ABO Group Rh Factor Antibody Screen (NEGATIVE) Crossmatch (COMPATIBLE) Micro Results-Entire Visit: Microbiology 09/27/19 13:00 Urine Culture - Preliminary Clean Catch Midstream NO GROWTH TO DATE - Radiology Exams Ordered Rad Exams-Entire Visit: Radiology Procedures Category Date Time Status ABDOMEN AND PELVIS W CONTRAST [CT] Stat Exams 09/27/19 12:55 Completed CHEST 1 VIEW (PORTABLE) Stat Exams 09/27/19 12:50 Completed HEAD WITHOUT CONTRAST [CT] Stat Exams 09/27/19 12:50 Completed - Procedures and Test Procedures and Tests throughout Hospitalization: Therapy Orders & Screens 09/27/19 17:02 Peak Expiratory Flow Rate ONCE Comment: Reason For Exam: Diagnosis: symptomatic anemia Respiratory Therapy Assessment DAILY Comment: Diagnosis: symptomatic anemia 09/27/19 17:03 Oxygen NASAL CANNULA 4 lpm Comment: Diagnosis: symptomatic anemia 09/27/19 17:34 RT Screen per Nursing Assess ONCE Comment: Protocol Order Physician Instructions: Greater than 3 points order RT Admission Screen Reason For Exam: Triggered on Admission Diagnosis: symptomatic anemia Diagnosis: symptomatic anemia Pneumonia: No Home O2: Yes Asthma: No CHF: No Home CPAP/BIPAP: No Home Nebs/MDI: Yes Total Points: 10 09/28/19 07:00 Respiratory MDI DAILY Comment: BREO DAILY-HOME MED Diagnosis: symptomatic anemia 09/28/19 08:17 PT Eval & Treat (MD Order) ROUTINE Reason for Eval:: weakness, rectal cancer Diagnosis: symptomatic anemia Discharge Exam General Appearance: other (chronically ill, frail) Respiratory Exam: normal breath sounds, lungs clear, No respiratory distress Cardiovascular Exam: regular rate/rhythm, normal heart sounds Gastrointestinal/Abdomen Exam: soft, No tenderness, No mass Final Diagnosis/Problem List - Final Discharge Diagnosis/Problem (1) Anemia Current Visit: No Status: Chronic Code(s): D64.9 - ANEMIA, UNSPECIFIED (2) Generalized weakness Current Visit: Yes Status: Acute Code(s): R53.1 - WEAKNESS (3) Rectal carcinoma Current Visit: No Status: Chronic Code(s): C20 - MALIGNANT NEOPLASM OF RECTUM (4) Rectovaginal fistula Current Visit: Yes Status: Acute Code(s): N82.3 - FISTULA OF VAGINA TO LARGE INTESTINE (5) End stage chronic obstructive pulmonary disease Current Visit: No Status: Acute Code(s): J44.9 - CHRONIC OBSTRUCTIVE PULMONARY DISEASE, UNSPECIFIED (6) Atrial fibrillation Current Visit: No Status: Chronic Code(s): I48.91 - UNSPECIFIED ATRIAL FIBRILLATION - Discharge Disposition: NM TO [facility] Condition: Stable Prescriptions: New Acetaminophen 325 mg [Tylenol 325 mg] 650 mg PO Q6H PRN PRN #60 tablet PRN Reason: Pain And/Or Fever Continue Atorvastatin Calcium [Lipitor] 20 mg PO HS Omeprazole 40 mg PO DAILY Fluticasone/Vilanterol [Breo Ellipta 100-25 Mcg INH] 1 puff IH DAILY Carvedilol 6.25 mg [Coreg 6.25 MG] 12.5 mg PO BID Potassium Chloride 10 Meq Tab* [Klor Con 10 MEQ] 10 meq PO BID Rivaroxaban [Xarelto] 15 mg PO DAILY Ipratropium/Albuterol Sulfate [Combivent Inhaler] 1 puff IH QID Albuterol 2.5 mg/3 ml Neb [Proventil 2.5 mg/3 ml Neb] 2 puffs IH Q4HPRN PRN PRN Reason: Shortness Of Breath/Wheezing Ipratropium/Albuterol Sulfate [Iprat-Albut 0.5-3(2.5) mg/3 ml] 3 ml IH QID
[2019-09-29] MEDS ORDERED: PATIENT OWN MEDICATION IH SCH (10:00)
== END 2019-09-28 16:32 ==
LOC: ED 12:32 → MED SURG 15:59
PROVIDERS: ADMIT Family Medicine; ATTEND Family Medicine
DX: D64.9 Anemia, unspecified (principal); R53.1 Weakness; C20 Malignant neoplasm of rectum; N82.3 Fistula of vagina to large intestine; J44.9 Chronic obstructive pulmonary disease, unspecified; I48.91 Unspecified atrial fibrillation; Z79.899 Other long term (current) drug therapy; I25.2 Old myocardial infarction; Z95.810 Presence of automatic (implantable) cardiac defibrillator; M81.0 Age-related osteoporosis without current pathological fracture; M41.9 Scoliosis, unspecified; I25.10 Atherosclerotic heart disease of native coronary artery without angina pectoris
CPT/HCPCS: 36000; 36415; 51702; 70450; 71045; 74177; 80053; 81001; 82272; 82550; 83735; 85014; 85018; 85025; 86850; 86900; 86901; 86922; 87086; 93005; 93041; 94150; 94640; 94760; 96360; 97161; 99285; P9016; 36430; 93268; J1940; A9270-GY; G0378

== ENCOUNTER 2020-02-12 11:31 | Emergency (ER) | payer MEDICARE ==
--- NOTE | 2020-02-12 11:56 | ERPHSYRPT ---
- History of Present Illness Time Seen by Provider: 02/12/20 11:31 Source: patient, EMS Patient Subjective Stated Complaint: "I dont know why I'm here" Triage Nursing Assessment: pt to ED by EMS from [facility]. RN called report from [facility] stating pt had decreased LOC, decreased PO intake, and hypotension. F RN also states "I feel like she is dying and we don't really want to do CPR here today." Upon arrival to ED, pt states she is unsure why she is here and wants to return to facility. Pt states she feels weak, but that is normal for her and she does not feel any different than other days. pt denies pain. pt is on 4L NC at all times, sats 100% on arrival. pt A&O to self, place, and event. confused to the date. pt also has hx colon cancer. lung sounds clear and equal bialterally, heart sounds clear, bowel sounds active. cap refil < 3 sec. pt is resting comfortably in bed at this time. Physician History: Pt sent from [place] for hypotension/decreased LOC. Pt arrived alert and oriented x2.5. She states that she is not having any problems and wants to go back to [facility]. Pt denies dyspnea/chest pain/N/V/D/fever. Risks explained to pt, and she refuses any blood work/XR's/UA. Timing/Duration: today Severity: mild Modifying Factors: Improves With: other (Denies any symptoms) Associated Symptoms: denies symptoms Allergies/Adverse Reactions: sulfasalazine Allergy (Severe, Verified 02/12/20 11:50) metronidazole [From Flagyl] Adverse Reaction (Severe, Verified 02/12/20 11:50) Vomiting iron Adverse Reaction (Verified 02/12/20 11:50) Home Medications: Atorvastatin Calcium [Lipitor] 20 mg PO HS 02/28/13 [History] Carvedilol 6.25 mg [Coreg 6.25 MG] 12.5 mg PO BID 01/07/17 [History] Fluticasone/Vilanterol [Breo Ellipta 100-25 Mcg INH] 1 puff IH DAILY 01/07/17 [History] Omeprazole 40 mg PO DAILY 01/07/17 [History] Potassium Chloride 10 Meq Tab* [Klor Con 10 MEQ] 10 meq PO BID 01/07/17 [History] Rivaroxaban [Xarelto] 15 mg PO DAILY 08/02/18 [History] Albuterol 2.5 mg/3 ml Neb [Proventil 2.5 mg/3 ml Neb] 2 puffs IH Q4HPRN PRN 11/25/18 [History] Ipratropium/Albuterol Sulfate [Combivent Inhaler] 1 puff IH QID 11/25/18 [History] Ipratropium/Albuterol Sulfate [Iprat-Albut 0.5-3(2.5) mg/3 ml] 3 ml IH QID 11/25/18 [History] Acidophilus/Pectin, Hartline [Acidophilus Caplet] 1 each PO BID 12/29/19 [History] Loperamide HCl 2 mg [Imodium 2 mg] 2 mg PO BID 12/29/19 [History] Multivit-Min36/Iron/Folic Acid [Geritol Complete Tablet] 1 each PO BID 12/29/19 [History] Saccharomyces Boulardii [Florastor] 250 mg PO BID 12/29/19 [History] Tramadol HCl 50 mg [Ultram 50 mg] 50 mg PO Q4HPRN PRN 12/29/19 [History] Hx Tetanus, Diphtheria Vaccination/Date Given: No Hx Influenza Vaccination/Date Given: Yes Hx Pneumococcal Vaccination/Date Given: Yes Travel Risk - International Travel Have you traveled outside of the country in past 3 weeks: No - Coronavirus Screening Are you exhibiting any of the following symptoms?: No Close contact with a COVID-19 positive Pt in past 14-21 Days: No - Review of Systems Constitutional: No Symptoms Eyes: No Symptoms Ears, Nose, & Throat: No Symptoms Respiratory: No Symptoms Cardiac: No Symptoms Abdominal/Gastrointestinal: No Symptoms Genitourinary Symptoms: No Symptoms Musculoskeletal: No Symptoms Skin: No Symptoms Neurological: No Symptoms Psychological: No Symptoms Endocrine: No Symptoms Hematologic/Lymphatic: No Symptoms Immunological/Allergic: No Symptoms - Past Medical History Pertinent Past Medical History: Yes Neurological History: No Pertinent History ENT History: Cataracts Cardiac History: Arrhythmia, Myocardial Infarction (OR), Other Respiratory History: Emphysema Endocrine Medical History: No Pertinent History Musculoskeletal History: No Pertinent History GI Medical History: No Pertinent History, Colorectal Cancer History: No Pertinent History Psycho-Social History: No Pertinent History Female Reproductive Disorders: Endometriosis Other Medical History: APICAL THROMBUS, 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 PACEMAKER/DEFIBRILLATOR VIA DR ECHEVERRIA. DR GROVES IS STOCKLAYER. DR WALTER IS ADMIN DIR. IN JUN 2012 WAS ON THE VENTILATOR FOR 11 DAYS.,anemia - Past Surgical History Past Surgical History: Yes Neuro Surgical History: No Pertinent History Cardiac: No Pertinent History, Internal Defibrillator, Pacemaker Respiratory: No Pertinent History Gastrointestinal: No Pertinent History Genitourinary: No Pertinent History Musculoskeletal: No Pertinent History Female Surgical History: Hysterectomy Other Surgical History: cataract surgery - Social History Smoking Status: Former smoker How long have you smoked: 50 years Exposure to second hand smoke: (unknown) Drug Use: none Patient Lives Alone: No - Female History Hx Now: No - Nursing Vital Signs Nursing Vital Signs: Initial Vital Signs Temperature 98.2 F 02/12/20 11:34 Pulse Rate 67 02/12/20 11:34 Respiratory Rate 16 02/12/20 11:34 Blood Pressure 105/53 02/12/20 11:34 O2 Sat by Pulse Oximetry 100 02/12/20 11:34 Pain Scale Pain Intensity 0 - Physical Exam General Appearance: no apparent distress (Appears chronically ill) Eye Exam: PERRL/EOMI (Pupils small B) Ears, Nose, Throat Exam: normal ENT inspection, TMs normal, pharynx normal Neck Exam: normal inspection, non-tender Respiratory Exam: normal breath sounds, lungs clear, airway intact (4L O2 dep(chronic)), No respiratory distress Cardiovascular Exam: regular rate/rhythm, normal heart sounds, normal peripheral pulses Gastrointestinal/Abdomen Exam: soft, normal bowel sounds, No tenderness Pelvic Exam: not done Rectal Exam: deferred (Chronic rectal pain due to Ca) Back Exam: normal inspection Extremity Exam: normal inspection, normal range of motion Neurologic Exam: alert, oriented x 3 (Oriented to place/person/situation), cooperative, 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 tested, normal mood/affect, sensation nml, motor deficits Skin Exam: warm, dry, pale SpO2 Interpretation: normal SpO2: 100 O2 Delivery: Nasal Cannula - Course Nursing assessment & vital signs reviewed: Yes EKG Interpreted by Me: RATE (Paced/Rate 71) - Radiology Exams Chest X-ray Interpretation: Discussed w/ radiologist (NAD) Ordered Tests: Active Orders 24 hr Category Date Time Status EKG-ER Only STAT Care 02/12/20 12:16 Active IV Insertion STAT Care 02/12/20 12:41 Active Oxygen-ED Only Nasal Cannula 4 lpm Care 02/12/20 12:42 Active CHEST 1 VIEW (PORTABLE) Stat Exams 02/12/20 12:17 Completed CBC W DIFF Stat Lab 02/12/20 12:35 Results CMP Stat Lab 02/12/20 12:35 Completed CULTURE,URINE Stat Lab 02/12/20 12:40 Ordered Lactic Acid Stat Lab 02/12/20 12:19 Completed TROPONIN Q3H Lab 02/12/20 12:35 Completed TROPONIN Q3H Lab 02/12/20 15:30 Ordered TROPONIN Q3H Lab 02/12/20 18:30 Ordered TROPONIN Q3H Lab 02/12/20 21:30 Ordered TROPONIN Q3H Lab 02/13/20 00:30 Ordered UA W/RFX UR CULTURE Stat Lab 02/12/20 12:35 Completed Medication Summary Generic Name Dose Route Start Last Admin Trade Name Freq PRN Reason Stop Dose Admin Sodium Chloride 500 mls @ 500 mls/hr 02/12/20 13:26 Sodium Chloride 0.9% 500 Ml IV 02/12/20 14:25 .Q1H ONE Ceftriaxone Sodium/Dextrose 1 g in 50 mls @ 100 mls/hr 02/12/20 13:27 Rocephin 1 Gm-D5w 50 Ml Bag IV 02/12/20 13:56 STAT STA Lab/Rad Data: Laboratory Result Diagrams 02/12/20 12:35 02/12/20 12:35 Laboratory Results 02/12/20 02/12/20 02/12/20 Range/Units 12:35 12:35 12:35 WBC (4.0-10.5) K/mm3 RBC (4.1-5.4) M/mm3 Hgb (12.0-16.0) gm/dl Hct (35-47) % MCV (78-100) fl MCH (26-32) pg MCHC (32-36) g/dl RDW (11.5-14.0) % Plt Count (150-450) K/mm3 MPV (7.5-11.0) fl Gran % (36.0-66.0) % Eos # (Auto) (0-0.5) Absolute Lymphs (auto) (1.0-4.6) Absolute Monos (auto) (0.0-1.3) Lymphocytes % (24.0-44.0) % Monocytes % (0.0-12.0) % Eosinophils % (0.00-5.0) % Basophils % (0.0-0.4) % Absolute Granulocytes (1.4-6.9) Basophils # (0-0.4) Sodium 133 L (137-145) mmol/L Potassium 4.6 (3.5-5.1) mmol/L Chloride 99 (98-107) mmol/L Carbon Dioxide 28 (22-30) mmol/L Anion Gap 10.4 (5-15) MEQ/L BUN 18 H (7-17) mg/dL Creatinine 0.95 (0.52-1.04) mg/dL Estimated GFR > 60.0 ML/MIN Glucose 96 (74-106) mg/dL Lactic Acid (0.4-2.0) Calcium 8.5 (8.4-10.2) mg/dL Total Bilirubin 0.80 (0.2-1.3) mg/dL AST 22 (14-36) U/L ALT 12 (0-35) U/L Alkaline Phosphatase 101 (38-126) U/L Troponin I < 0.012 (0.000-0.034) ng/mL Serum Total Protein 5.9 L (6.3-8.2) g/dL Albumin 2.7 L (3.5-5.0) g/dL Urine Color HARLEY (YELLOW) Urine Appearance CLOUDY (CLEAR) Urine pH 6.0 (5-6) Ur Specific Douglass 1.016 (1.005-1.025) Urine Protein 30 (Negative) Urine Ketones NEGATIVE (NEGATIVE) Urine Blood NEGATIVE (0-5) Misael/ul Urine Nitrite POSITIVE (NEGATIVE) Urine Bilirubin NEGATIVE (NEGATIVE) Urine Urobilinogen 4 (0-1) mg/dL Ur Leukocyte Esterase LARGE (NEGATIVE) Urine WBC (Auto) 51-100 (0-5) /HPF Urine RBC (Auto) NONE (0-2) /HPF U Epithel Cells (Auto) NONE (FEW) /HPF Urine Bacteria (Auto) MANY (NEGATIVE) /HPF Urine Mucus (Auto) SLIGHT (NEGATIVE) /HPF Urine Culture Reflexed ORDERED SEPARATELY (NO) Urine Glucose NEGATIVE (NEGATIVE) mg/dL 02/12/20 02/12/20 Range/Units 12:35 12:19 WBC 5.3 (4.0-10.5) K/mm3 RBC 2.89 L (4.1-5.4) M/mm3 Hgb 7.7 L (12.0-16.0) gm/dl Hct 26.5 L (35-47) % MCV 91.7 (78-100) fl MCH 26.6 (26-32) pg MCHC 29.1 L (32-36) g/dl RDW 15.4 H (11.5-14.0) % Plt Count 221 (150-450) K/mm3 MPV 9.8 (7.5-11.0) fl Gran % 81.1 H (36.0-66.0) % Eos # (Auto) 0.08 (0-0.5) Absolute Lymphs (auto) 0.64 L (1.0-4.6) Absolute Monos (auto) 0.27 (0.0-1.3) Lymphocytes % 12.1 L (24.0-44.0) % Monocytes % 5.1 (0.0-12.0) % Eosinophils % 1.5 (0.00-5.0) % Basophils % 0.2 (0.0-0.4) % Absolute Granulocytes 4.28 (1.4-6.9) Basophils # 0.01 (0-0.4) Sodium (137-145) mmol/L Potassium (3.5-5.1) mmol/L Chloride (98-107) mmol/L Carbon Dioxide (22-30) mmol/L Anion Gap (5-15) MEQ/L BUN (7-17) mg/dL Creatinine (0.52-1.04) mg/dL Estimated GFR ML/MIN Glucose (74-106) mg/dL Lactic Acid 1.7 (0.4-2.0) Calcium (8.4-10.2) mg/dL Total Bilirubin (0.2-1.3) mg/dL AST (14-36) U/L ALT (0-35) U/L Alkaline Phosphatase (38-126) U/L Troponin I (0.000-0.034) ng/mL Serum Total Protein (6.3-8.2) g/dL Albumin (3.5-5.0) g/dL Urine Color (YELLOW) Urine Appearance (CLEAR) Urine pH (5-6) Ur Specific Douglass (1.005-1.025) Urine Protein (Negative) Urine Ketones (NEGATIVE) Urine Blood (0-5) Misael/ul Urine Nitrite (NEGATIVE) Urine Bilirubin (NEGATIVE) Urine Urobilinogen (0-1) mg/dL Ur Leukocyte Esterase (NEGATIVE) Urine WBC (Auto) (0-5) /HPF Urine RBC (Auto) (0-2) /HPF U Epithel Cells (Auto) (FEW) /HPF Urine Bacteria (Auto) (NEGATIVE) /HPF Urine Mucus (Auto) (NEGATIVE) /HPF Urine Culture Reflexed (NO) Urine Glucose (NEGATIVE) mg/dL - Progress Progress: improved Progress Note: 02/12/20 11:58 Pt refuses all labs/XR's/UA and is oriented to place/person/situation. Will discharge pt back to [facility] at her wish. Risks explained to pt. 02/12/20 12:39 After pt discharged, she decided that she wanted to be worked up, after staff talked to son. 02/12/20 13:29 Pt given 1L NS bolus/1gm IV rocephin Counseled pt/family regarding: need for follow-up - Departure Departure Disposition: Extended Care Facility Clinical Impression: Encounter for medical screening examination, Urinary tract infection Condition: Stable Critical Care Time: No Referrals: TAE MENDOZA [Primary Care Provider] - Instructions: Urinary Tract Infections in Adults Additional Instructions: Have facility physician see and examine pt. to determine need for further antibiotics.
[2020-02-12 12:50] LABS: Absolute Neutrophil Ct (ANC) 4.28 (1.4-6.9); BASOPHIL % 0.2 % (0.0-0.4); Basophil (Absolute #) 0.01 (0-0.4); Eosinophil % 1.5 % (0.00-5.0); Eosinophil (Absolute #) 0.08 (0-0.5); Hematocrit 26.5 % (35-47); Hemoglobin 7.7 gm/dl (12.0-16.0); Lymphocyte (Absolute #) 0.64 (1.0-4.6); Lymphocytes % 12.1 % (24.0-44.0); Mean Cell Volume 91.7 fl (78-100); Mean Corpuscular Hemoglobin 26.6 pg (26-32); Mean Corpuscular Hgb Concent. 29.1 g/dl (32-36); Mean Platelet Volume 9.8 fl (7.5-11.0); Monocyte (Absolute #) 0.27 (0.0-1.3); Monocytes % 5.1 % (0.0-12.0); Neutrophil % 81.1 % (36.0-66.0); Platelet Count 221 K/mm3 (150-450); Red Blood Count 2.89 M/mm3 (4.1-5.4); Red Cell Distribution Width 15.4 % (11.5-14.0); White Blood Count 5.3 K/mm3 (4.0-10.5)
--- NOTE | 2020-02-12 12:58 | XRAY ---
Indication: Dyspnea. Comparison: September 27, 2019. Portable chest unchanged again demonstrating biapical fibrosis/scarring. Remaining lungs clear. Heart is not enlarged for AP portable technique again with left AICD. Bony thorax intact again with osteopenia, degenerative changes, scoliosis, and left axilla calcified nodes. Impression: Continued nonacute chest with chronic features.
[2020-02-12 13:09] LABS: ALBUMIN 2.7 g/dL (3.5-5.0); ALKALINE PHOSPHATASE 101 U/L (38-126); ANION GAP 10.4 MEQ/L (5-15); BLOOD UREA NITROGEN 18 mg/dL (7-17); CHLORIDE 99 mmol/L (98-107); Calcium 8.5 mg/dL (8.4-10.2); Carbon Dioxide 28 mmol/L (22-30); Creatinine 1 0.95 mg/dL (0.52-1.04); Glucose 96 mg/dL (74-106); Potassium 4.6 mmol/L (3.5-5.1); SGOT/AST 22 U/L (14-36); SGPT/ALT 12 U/L (0-35); SODIUM 133 mmol/L (137-145); Total Protein 5.9 g/dL (6.3-8.2)
[2020-02-12 13:10] LABS: Appearance CLOUDY (CLEAR); Bacteria MANY /HPF (NEGATIVE); Bilirubin NEGATIVE (NEGATIVE); Blood NEGATIVE Ery/ul (0-5); Glucose NEGATIVE (NEGATIVE); Ketones NEGATIVE (NEGATIVE); Leukocyte Esterase LARGE (NEGATIVE); Mucus SLIGHT /HPF (NEGATIVE); Nitrite POSITIVE (NEGATIVE); Protein,Urine Dip 30 (Negative); Specific Gravity 1.016 (1.005-1.025); Urobilinogen 4 mg/dL (0-1); WBC 51-100 /HPF (0-5)
[2020-02-12] MEDS ORDERED: Sodium Chloride 0.9% 500 ML 500 ML IV ONE ×2 (13:26→13:29)
[2020-02-12] MEDS ORDERED: ROCEPHIN 1 Gm-D5w 50 ml Bag** 1 G/50 ML IVPB IV STA (13:27)
[2020-02-12] MEDS ORDERED: ROCEPHIN 1 Gm-D5w 50 ml Bag** 1 G/50 ML IVPB IV ONE (13:28)
[2020-02-12 14:03] VITALS: BP 111/52; PULSE 72
[2020-02-12 14:35] VITALS: O2SAT 100
== END 2020-02-12 14:00 ==
LOC: ED 11:31
DX: N39.0 Urinary tract infection, site not specified (principal); E03.9 Hypothyroidism, unspecified; Z79.891 Long term (current) use of opiate analgesic; I25.2 Old myocardial infarction
CPT/HCPCS: 36000; 36415; 71045; 80053; 81001; 83605; 84484; 85025; 87077; 87086; 87186; 93005; 99284; J0696